=== PATIENT | female | born 1930 | race Caucasian/White ===

== ENCOUNTER 2019-01-27 04:15 | Inpatient (IN) | payer OTHER ==
[~2019-01-27] VITALS: Ht 149.9 cm; Wt 36.8 kg
[~2019-01-27 04:15] MED LIST: AMLO-218 PO; AUG875 PO; LEVO75TA84 PO; LOSA50TA2 PO; NYST30PO5 TOP
[2019-01-27] MEDS ORDERED: SOD CHLORIDE 0.45% 1,000 ML IV SCH (08:00)
[2019-01-27] MEDS ORDERED: BISACODYL (EC) 5 MG TAB PO PRN (08:00)
[2019-01-27] MEDS ORDERED: ACETAMINOPHEN 325 MG TAB PO PRN (08:00)
[2019-01-27 08:16] VITALS: BP 158/76; PULSE 98; RESP 20
[2019-01-27] MEDS: CEFTRIAXONE 1 GM/NS 50 ML IVPB SCH (08:30)
[2019-01-27] MEDS: AMLODIPINE 10 MG TAB PO SCH (08:59)
[2019-01-27] MEDS: PANTOPRAZOLE (EC) 40 MG TAB PO SCH (09:00)
[2019-01-27] MEDS: LOSARTAN 50 MG TAB PO SCH ×3 (09:00→20:32)
[2019-01-27] MEDS ORDERED: CEFTRIAXONE 1 GM INJ IVPB SCH (09:00)
[2019-01-27] MEDS: POTASSIUM CHLORIDE 100 ML IVPB SCH ×2 (10:53→16:47)
[2019-01-27 14:55] VITALS: BP 131/65; PULSE 101; RESP 20
[2019-01-27] MEDS: 1/2 NS + KCL 20 MEQ 1,000 ML IV SCH (18:24)
--- NOTE | 2019-01-27 18:51 | HP ---
Date/Time of Note Date/Time of Note DATE: 01/27/19 TIME: 18:49 Assessment/Plan VTE Prophylaxis Risk score (from [facility] [place])>0 risk: 4 SCD applied (from [facility] [place]): Yes SCD contraindicated: other Pharmacological prophylaxis: NA/contraindicated Pharm contraindication: anticoag not tolerated Lines/Catheters IV Catheter Type (from [facility]): Peripheral IV Urinary Cath still in place: No Assessment/Plan Hospital Course 1. SOB, troponini positive in [place] 0.08 and now [facility] 0.329 2. SIRS with UTI 3. metabolic encephalopathy vs dementia 4. Cachexia. 5. Anemia 6. DM type II 7. Hypothyroidism 8. Malnourishment 9. electrolyte imbalance 10. hx of fall at home 11. S.p right hip surgery Assessment/Plan -hypoglycemic control -DVT proph SCD -GI proph. Protonix -per daughter pt is DNR -dr Erwin consult -sitter for safety -telemetry transfer Result Diagram: 01/27/19 0849 01/27/19 0849 Results 24hrs Laboratory Tests Test 01/27/19 08:49 White Blood Count 11.5 #H Red Blood Count 3.19 L Hemoglobin 7.8 #L Hematocrit 25.1 L Mean Corpuscular Volume 78.7 L Mean Corpuscular Hemoglobin 24.5 L Mean Corpuscular Hemoglobin Concent 31.1 L Red Cell Distribution Width 15.2 H Platelet Count 523 H Mean Platelet Volume 9.1 Immature Granulocytes % 0.500 H Neutrophils % 86.2 H Lymphocytes % 6.9 L Monocytes % 6.1 Eosinophils % 0.1 Basophils % 0.2 Nucleated Red Blood Cells % 0.0 Immature Granulocytes # 0.060 H Neutrophils # 10.0 H Lymphocytes # 0.8 Monocytes # 0.7 Eosinophils # 0.0 Basophils # 0.0 Nucleated Red Blood Cells # 0.0 Sodium Level 137 Potassium Level 2.9 *L Chloride Level 103 Carbon Dioxide Level 25 Anion Gap 9 Blood Urea Nitrogen 14 Creatinine 0.54 Est Glomerular Filtrat Rate mL/min Glucose Level 157 Hemoglobin A1c 6.9 H Calcium Level 8.7 Total Bilirubin 0.2 Direct Bilirubin 0.00 Indirect Bilirubin 0.2 Aspartate Amino Transf (AST/SGOT) 22 Alanine Aminotransferase (ALT/SGPT) 18 Alkaline Phosphatase 89 Total Protein 6.8 Albumin 2.9 L Globulin 3.90 H Albumin/Globulin Ratio 0.74 HPI/ROS Admit Date/Time Admit Date/Time Jan 27, 2019 at 06:14 Hx of Present Illness This 88-year-old female presented herself to the emergency department of [facility] with the complaints of shortness of breath weakness history of falls. Patient is confused and unable to give detailed history the whole history obtained from nursing staff and the medical record. Patient reported shortness of breath for 1 day but weakness is a progressively worse for a few days. Past medical history diabetes mellitus type 2 fracture gastric ulcer dementia hypertension and status post a right hip arthroplasty or other surgery,. CBC revealed white blood count 12 hemoglobin 8 urinalysis revealed 21/50 WBC. 2+ leukocytes, BMP revealed glucose 215, sodium 126 potassium 3.2 chloride 92 CO2 23 BUN 21 creatinine 0.7. Troponin T is 0.08 lactate 1.0 procalcitonin 2.20. BNP 2.900 patient was given 1 L of normal saline and was given 1 g of Rocephin IV and she was transferred to [facility] due to insurance purposes Medications at home Tylenol with codeine 320 aspirin 81 Coreg 12.5 twice daily docusate sodium 100 mg p.o. ferrous sulfate 325 hydrocodone acetaminophen 5/525 ibuprofen isosorbide 60 mg ER levothyroxine 75 mg p.o. a Loratadine 10 mg metformin 500 mg p.o. twice daily ROS denied current symptoms PMH/Family/Social Past Medical History Medical History: congestive heart failure, diabetes, hypertension Medications Current Medications Pantoprazole (Protonix Tab) 40 mg DAILY@06 PO Last administered on 01/27/19at 09:00; Admin Dose 40 MG; Start 01/27/19 at 08:00 Acetaminophen (Tylenol Tab) 650 mg Q6H PRN PO MILD PAIN(1-3)OR ELEVATED TEMP; Start 01/27/19 at 08:00 Bisacodyl (Dulcolax) 10 mg Q12H PRN PO CONSTIPATION; Start 01/27/19 at 08:00 Ceftriaxone Sodium 50 ml @ 100 mls/hr Q24H IVPB Last administered on 01/27/19at 08:30; Admin Dose 100 MLS/HR; Start 01/27/19 at 08:00 Amlodipine Besylate (Norvasc) 10 mg DAILY PO Last administered on 01/27/19at 08:59; Admin Dose 10 MG; Start 01/27/19 at 09:00 Levothyroxine Sodium (Synthroid) 75 mcg DAILY@06 PO ; Start 01/28/19 at 10:00 Losartan Potassium (Cozaar) 50 mg BID PO Last administered on 01/27/19at 09:00; Admin Dose 50 MG; Start 01/27/19 at 09:00 Potassium Chloride/Sodium Chloride 1,000 ml @ 50 mls/hr Q20H IV Last administered on 01/27/19at 18:24; Admin Dose 50 MLS/HR; Start 01/27/19 at 15:30 Metoprolol Tartrate (Lopressor) 25 mg BID PO ; Start 01/27/19 at 21:00 Aspirin (Aspirin) 81 mg DAILY PO ; Start 01/28/19 at 09:00 Coded Allergies: No Known Allergy (Unverified , 07/07/15) Past Surgical History Past Surgical Hx: other (right hip surgery) Social History Alcohol Use: none Smoking Status: Never smoker Drug Use: none Exam/Review of Systems Vital Signs Vitals Vital Signs Date Temp Pulse Resp B/P (MAP) Pulse Ox O2 O2 Flow FiO2 Time Delivery Rate 01/27/19 97.9 101 20 131/65 98 14:55 (87) Exam Constitutional: alert, frail Psych: confusion Head: normocephalic Eyes: nl conjunctiva Neck: supple Respiratory: clear to auscultation Cardiovascular: regular rate and rhythm Gastrointestinal: soft Musculoskeletal: muscle weakness BAY HAN Jan 27, 2019 18:51
[2019-01-27 20:04] VITALS: BP 137/66; PULSE 99; RESP 18
[2019-01-27] MEDS: METOPROLOL 25 MG TAB PO SCH ×2 (20:28→20:32)
--- NOTE | 2019-01-27 22:52 | CONS ---
DATE OF ADMISSION: 01/27/2019 DATE OF CONSULTATION: 01/27/2019 TYPE OF CONSULTATION: Cardiology. REASON FOR CONSULTATION: Positive troponin, assess significance. REQUESTING PHYSICIAN: Linus Moses MD HISTORY OF PRESENT ILLNESS: Mr. Tran is an 88-year-old female with a history of hypertension, hypo thyroidism, diabetes mellitus, gastric ulcer, recurrent falls, hip fracture status post surgery, who initially presented to outside hospital, [facility], with shortness of breath, inability t o ambulate, progressive weakness, recurrent falls. At outside hospital, temperature 98.7, blood pres sure 160/86, pulse 89, respiratory rate 17, satting 100%. The patient's labs were notable for a bord jhoan positive UA. BNP of 2900. Sodium 126, potassium 3.2, creatinine 0.7, BUN 21, AST 15, ALT 9, troponin mildly positive at 0.08. The patient additionally had a procalcitonin greater than 2. The patient just underwent a chest x-ray, the results of which revealed no pneumonia or CHF. Given that, the patient has been transferred to [facility] at this time. Since arrival at [facility], the patient appears somewhat confused, alert, awake. Most recent vital si gns: Temperature 98.9, blood pressure is 131/65, pulse 100 respiratory rate 20, satting 98%. PAST MEDICAL HISTORY: As above in HPI. MEDICATIONS CURRENTLY IN HOSPITAL: 1. Synthroid 75 mcg daily. 2. Norvasc 10 mg daily. 3. Cozaar 50 mg b.i.d. 4. Protonix 40 mg daily. 5. Tylenol p.r.n. 6. Ceftriaxone IV daily. ALLERGIES: NO KNOWN DRUG ALLERGIES. SOCIAL HISTORY: No current tobacco, ETOH, or illicit drug use. FAMILY HISTORY: No sudden cardiac or early CAD. REVIEW OF SYSTEMS: As above in HPI. CONSTITUTIONAL: No current fevers. PULMONARY: No current signs of respiratory compromise, but shortness of breath on admit [facility] the [facility]. GASTROINTESTINAL: No vomiting. GENITOURINARY: No hematuria. MUSCULOSKELETAL: Degenerative joint disease. PSYCHIATRIC: Possible psych history. NEUROLOGIC: Altered mental state. CARDIOVASCULAR: Positive from outside hospital. PHYSICAL EXAMINATION: VITAL SIGNS: Temperature 97.9, blood pressure 131/65, pulse 100, respiratory rate 20, satting 98%. GENERAL: The patient is alert, awake, no acute distress. NECK: JVP approximately 8 to 9 cm of water. CHEST: Upper airway transmitted rhonchus sounds. HEART: Tachycardic, borderline regular rhythm. Normal S1, S2, I/ systolic murmur, nondisplaced PM I. ABDOMEN: Positive bowel sounds, soft. EXTREMITIES: No significant pitting edema, 1+ pulses bilateral posterior tibial. LABORATORY DATA: From here at [facility]: White blood cell count 11.5, hemoglobin 7.8, platelet count of 523. Sodium 137, potassium 2.9, creatinine 0.5, BUN 14, AST 22, ALT 18. IMAGING STUDIES: No imaging studies for my review at this time. ELECTROCARDIOGRAM: No electrocardiograms here. Electrocardiogram from outside hospital revealed sin us rhythm, first-degree AV block, normal axis, borderline voltage criteria for left ventricular hyper trophy, left atrial abnormality. IMPRESSION: 1. Positive troponin in outside hospital. Assess significance, assess for ongoing true acute caro ry syndrome. 2. Abnormal echocardiogram with lateral T-wave inversion. 3. Hypertension, under reasonable control. 4. Tachycardia, borderline. Electrocardiogram was likely consistent with sinus tachycardia. 5. Altered mental state/nephropathy. 6. Hypokalemia. 7. Recurrent falls. 8. Generalized weakness. 9. Shortness of breath prior to admit at the hospital. 10. Hypothyroidism. RECOMMENDATIONS: 1. At this time, we would check serial EKGs to assess for significant ongoing change, EKG in the mor debra, EKG for any complaints of chest pain or change in rhythm. 2. Would trend the patient's cardiac troponins here at [facility] to assess for an y significant ongoing cardiac damage. Initiate patient on aspirin at this time, but we will watch fo r any signs of bleeding given anemia and microcytic indices, and therefore will not start any further anticoagulation. 3. Consider low-dose beta darrell to improve heart rate and blood pressure control, decrease O2 aron nd. 4. Check a 2D echo to further assess patient's ejection fraction, wall motion and major valve abnorm alities. 5. Continue the patient's antibiotics and follow up all culture data including urine culture. 6. Continue the patient's Cozaar and Norvasc at this time for additional blood pressure control. 7. Check a TSH to be sure her subclinical hyperthyroid is not contributing to bouts of borderline ta chycardia and we will check a 2D echo to assess the patient's ejection fraction, wall motion, rule ou t any major valve abnormalities. Thank you for allowing me to take part in the care of this patient. I will continue to follow along very closely with you, with recommendations to be made as the patient progresses through her central hospital clinical course. Dictated By: TELLY GERONIMO/AUSTIN Conf#: [id number] DID#: [id number] CC: LINUS MOSES MD;*EndCC*
[2019-01-28] VITALS (7 sets, daily range): BP systolic 120–167; BP diastolic 58–80; PULSE 74–102; RESP 17–19
[2019-01-28] MEDS: PANTOPRAZOLE (EC) 40 MG TAB PO SCH (05:36)
[2019-01-28] MEDS: LOSARTAN 50 MG TAB PO SCH ×2 (08:41→20:11)
[2019-01-28] MEDS: METOPROLOL 25 MG TAB PO SCH (08:41)
[2019-01-28] MEDS: ASPIRIN 81 MG TAB PO SCH (08:42)
[2019-01-28] MEDS: CEFTRIAXONE 1 GM/NS 50 ML IVPB SCH (08:42)
[2019-01-28] MEDS: AMLODIPINE 10 MG TAB PO SCH (08:42)
[2019-01-28] MEDS: 1/2 NS + KCL 20 MEQ 1,000 ML IV SCH (11:30)
--- NOTE | 2019-01-28 12:15 | PN ---
Date/Time of Note Date/Time of Note DATE: 01/28/19 TIME: 12:13 Assessment/Plan VTE Prophylaxis [place] [facility] [place]: 5 [place]CD [place] [facility] [place] SCD contraindicated: other Pharmacological prophylaxis: NA/contraindicated Pharm contraindication: anticoag not tolerated Lines/Catheters IV Catheter Type (from [facility]): Peripheral IV Urinary Cath still in place: No Assessment/Plan Hospital Course 1. SOB, troponin positive in [place] 0.08 and now [facility] 0.329 2. Urosepsis 3. metabolic encephalopathy vs dementia 4. Cachexia. 5. Iron deficiency Anemia 6. DM type II, controlled 7. Hypothyroidism 8. Malnourishment 9. electrolyte imbalance 10. hx of fall at home 11. S.p right hip surgery Assessment/Plan -hypoglycemic control -DVT proph SCD. Aspirin -start ferrlicit ID consult dr Darby -GI proph. Protonix -per daughter pt is DNR -dr Erwin cardiology consult appreciated -blood cultures are positive from [facility] -sitter for safety -telemetry service Result Diagram: 01/28/19 0534 01/28/19 0534 Results 24hrs Laboratory Tests Test 01/27/19 18:09 01/28/19 00:42 01/28/19 05:34 Troponin I 0.329 *H 0.320 *H 0.343 *H White Blood Count 11.5 H Red Blood Count 3.23 L Hemoglobin 7.9 L Hematocrit 25.5 L Mean Corpuscular Volume 78.9 L Mean Corpuscular Hemoglobin 24.5 L Mean Corpuscular Hemoglobin Concent 31.0 L Red Cell Distribution Width 15.3 H Platelet Count 534 H Mean Platelet Volume 9.2 Immature Granulocytes % 0.400 Neutrophils % 81.1 H Lymphocytes % 11.0 L Monocytes % 7.1 Eosinophils % 0.2 Basophils % 0.2 Nucleated Red Blood Cells % 0.0 Immature Granulocytes # 0.050 H Neutrophils # 9.3 H Lymphocytes # 1.3 Monocytes # 0.8 Eosinophils # 0.0 Basophils # 0.0 Nucleated Red Blood Cells # 0.0 Sodium Level 138 Potassium Level 4.0 Chloride Level 103 Carbon Dioxide Level 25 Anion Gap 10 Blood Urea Nitrogen 11 Creatinine 0.54 Est Glomerular Filtrat Rate mL/min Glucose Level 132 Lactic Acid Level 1.1 Calcium Level 9.0 Iron Level 22 L Total Iron Binding Capacity 244 Percent Iron Saturation 9 L Triglycerides Level 105 Cholesterol Level 135 LDL Cholesterol, Calculated 88 HDL Cholesterol 26 L Cholesterol/HDL Ratio 5.1 Thyroid Stimulating Hormone (TSH) 1.070 Subjective 24 Hr Interval Summary Constitutional: disoriented Exam/Review of Systems Exam Vitals Vital Signs Date Temp Pulse Resp B/P (MAP) Pulse Ox O2 O2 Flow FiO2 Time Delivery Rate 01/28/19 98.6 74 17 139/70 96 Room Air 09:05 (93) Intake and Output 01/27/19 01/27/19 01/28/19 1515:00 23:00 07:00 IntakeIntake Total 410 ml 1180 ml 100 ml BalanceBalance 410 ml 1180 ml 100 ml Exam communication barrier Constitutional: alert Head: normocephalic Eyes: nl conjunctiva Neck: supple Respiratory: clear to auscultation Cardiovascular: regular rate and rhythm, other (SVT run) Genitourinary - Female: CVA tenderness; No nl adnexae, No nl external genitalia, No CMT, No uterus, No other Extremities: edema; No normal pulses, No calf tenderness, No cyanosis, No clubbing, No pitting pedal edema, No palpable cord, No tenderness, No other Neurological: confused Results Results 24hrs Laboratory Tests Test 01/27/19 18:09 01/28/19 00:42 01/28/19 05:34 Troponin I 0.329 *H 0.320 *H 0.343 *H White Blood Count 11.5 H Red Blood Count 3.23 L Hemoglobin 7.9 L Hematocrit 25.5 L Mean Corpuscular Volume 78.9 L Mean Corpuscular Hemoglobin 24.5 L Mean Corpuscular Hemoglobin Concent 31.0 L Red Cell Distribution Width 15.3 H Platelet Count 534 H Mean Platelet Volume 9.2 Immature Granulocytes % 0.400 Neutrophils % 81.1 H Lymphocytes % 11.0 L Monocytes % 7.1 Eosinophils % 0.2 Basophils % 0.2 Nucleated Red Blood Cells % 0.0 Immature Granulocytes # 0.050 H Neutrophils # 9.3 H Lymphocytes # 1.3 Monocytes # 0.8 Eosinophils # 0.0 Basophils # 0.0 Nucleated Red Blood Cells # 0.0 Sodium Level 138 Potassium Level 4.0 Chloride Level 103 Carbon Dioxide Level 25 Anion Gap 10 Blood Urea Nitrogen 11 Creatinine 0.54 Est Glomerular Filtrat Rate mL/min Glucose Level 132 Lactic Acid Level 1.1 Calcium Level 9.0 Iron Level 22 L Total Iron Binding Capacity 244 Percent Iron Saturation 9 L Triglycerides Level 105 Cholesterol Level 135 LDL Cholesterol, Calculated 88 HDL Cholesterol 26 L Cholesterol/HDL Ratio 5.1 Thyroid Stimulating Hormone (TSH) 1.070 Medications Medication Current Medications Pantoprazole (Protonix Tab) 40 mg DAILY@06 PO Last administered on 01/28/19 05:36; Admin Dose 40 MG; Start 01/27/19 at 08:00 Acetaminophen (Tylenol Tab) 650 mg Q6H PRN PO MILD PAIN(1-3)OR ELEVATED TEMP; Start 01/27/19 at 08:00 Bisacodyl (Dulcolax) 10 mg Q12H PRN PO CONSTIPATION; Start 01/27/19 at 08:00 Ceftriaxone Sodium 50 ml @ 100 mls/hr Q24H IVPB Last administered on 01/28/19 08:42; Admin Dose 100 MLS/HR; Start 01/27/19 at 08:00 Amlodipine Besylate (Norvasc) 10 mg DAILY PO Last administered on 01/28/19 08:42; Admin Dose 10 MG; Start 01/27/19 at 09:00 Levothyroxine Sodium (Synthroid) 75 mcg DAILY@06 PO ; Start 01/28/19 at 10:00 Losartan Potassium (Cozaar) 50 mg BID PO Last administered on 01/28/19 08:41; Admin Dose 50 MG; Start 01/27/19 at 09:00 Potassium Chloride/Sodium Chloride 1,000 ml @ 50 mls/hr Q20H IV Last administered on 01/27/19at 18:24; Admin Dose 50 MLS/HR; Start 01/27/19 at 15:30 Metoprolol Tartrate (Lopressor) 25 mg BID PO Last administered on 01/28/19 08:41; Admin Dose 25 MG; Start 01/27/19 at 21:00 Aspirin (Aspirin) 81 mg DAILY PO Last administered on 01/28/19 08:42; Admin Dose 81 MG; Start 01/28/19 at 09:00 BAY HAN Jan 28, 2019 12:15
[2019-01-28] MEDS: LEVOTHYROXINE 75 MCG TAB PO SCH (12:16)
[2019-01-28] MEDS ORDERED: GLUCOSE GEL 15 GRAM TUBE BUCCAL PRN (12:30)
[2019-01-28] MEDS ORDERED: DEXTROSE 50% 50 ML SYRINGE IV PRN ×2 (12:30)
[2019-01-28] MEDS ORDERED: GLUCAGON 1 MG INJ IM PRN (12:30)
[2019-01-28] MEDS ORDERED: GLUCOSE GEL 15 GRAM TUBE PO PRN ×2 (12:30)
--- NOTE | 2019-01-28 13:24 | CONS ---
Assessment/Plan Assessment/Plan Hospital Course (Demo Recall) IMP: 1. Positive troponin in outside hospital. Assess significance, assess for ongoing true acute coronary syndrome.-minimally positive troponin here 2. Abnormal echocardiogram with lateral T-wave inversion.- No change on serial ecg assessment 3. Hypertension, under reasonable control. 4. Tachycardia, borderline-c/w s Tach. Nl TSH 5. Altered mental state/nephropathy. 6. Hypokalemia-improved 7. Recurrent falls. 8. Generalized weakness. 9. Shortness of breath prior to admit at the hospital-ongoing 10. Hypothyroidism. 11. anemia-ongoing but unchanged Recc: -No on tele -trend cardiac enzymes -Contine asa/BB -Will f/u echo -Contineu abx's and f/u cx data -check cxr Consultation Date/Type/Reason Admit Date/Time Jan 27, 2019 at 06:14 Initial Consult Date 01/27/19 Type of Consult Cardiology Reason for Consultation positive troponin Requesting Provider: RAND SANDOVAL MD Date/Time of Note DATE: 01/28/19 TIME: 13:14 Exam/Review of Systems Vital Signs Vitals Vital Signs Date Temp Pulse Resp B/P (MAP) Pulse Ox O2 O2 Flow FiO2 Time Delivery Rate 01/28/19 98.7 17 120/58 98 Room Air 13:04 (78) 01/28/19 74 09:05 Intake and Output 01/27/19 01/27/19 01/28/19 1414:59 22:59 06:59 IntakeIntake Total 410 ml 1180 ml 100 ml BalanceBalance 410 ml 1180 ml 100 ml Exam Exam Review of Systems: CONSTITUTIONAL: No fevers, chills. PULMONARY: No sob CARDIOVASCULAR: No chest pain/palpitations GASTROINTESTINAL: No nausea/vomiting. GENITOURINARY: No hematuria/dysuria. MUSCULOSKELETAL: No myagias/arthalgias. PSYCHIATRIC: The patient denies depression. NEUROLOGIC: confused Constitutional: alert Psych: confusion Head: normocephalic ENMT: mucosa pink and moist Neck: supple, jvd (9 cm water) Respiratory: diminished breath sounds (at bases/B) Cardiovascular: regular rate and rhythm Gastrointestinal: soft, non-tender Musculoskeletal: muscle weakness (generalized) Extremities: edema (none) Neurological: confused Labs Result Diagram: 01/28/1934 01/28/19533 Results 24hrs Laboratory Tests Test 01/27/19 18:09 01/28/19 00:42 01/28/19 05:34 Troponin I 0.329 *H 0.320 *H 0.343 *H White Blood Count 11.5 H Red Blood Count 3.23 L Hemoglobin 7.9 L Hematocrit 25.5 L Mean Corpuscular Volume 78.9 L Mean Corpuscular Hemoglobin 24.5 L Mean Corpuscular Hemoglobin Concent 31.0 L Red Cell Distribution Width 15.3 H Platelet Count 534 H Mean Platelet Volume 9.2 Immature Granulocytes % 0.400 Neutrophils % 81.1 H Lymphocytes % 11.0 L Monocytes % 7.1 Eosinophils % 0.2 Basophils % 0.2 Nucleated Red Blood Cells % 0.0 Immature Granulocytes # 0.050 H Neutrophils # 9.3 H Lymphocytes # 1.3 Monocytes # 0.8 Eosinophils # 0.0 Basophils # 0.0 Nucleated Red Blood Cells # 0.0 Sodium Level 138 Potassium Level 4.0 Chloride Level 103 Carbon Dioxide Level 25 Anion Gap 10 Blood Urea Nitrogen 11 Creatinine 0.54 Est Glomerular Filtrat Rate mL/min Glucose Level 132 Lactic Acid Level 1.1 Calcium Level 9.0 Iron Level 22 L Total Iron Binding Capacity 244 Percent Iron Saturation 9 L Triglycerides Level 105 Cholesterol Level 135 LDL Cholesterol, Calculated 88 HDL Cholesterol 26 L Cholesterol/HDL Ratio 5.1 Thyroid Stimulating Hormone (TSH) 1.070 Medications Medications Current Medications Pantoprazole (Protonix Tab) 40 mg DAILY@06 PO Last administered on 01/28/19at 05:36; Admin Dose 40 MG; Start 01/27/19 at 08:00 Acetaminophen (Tylenol Tab) 650 mg Q6H PRN PO MILD PAIN(1-3)OR ELEVATED TEMP; Start 01/27/19 at 08:00 Bisacodyl (Dulcolax) 10 mg Q12H PRN PO CONSTIPATION; Start 01/27/19 at 08:00 Ceftriaxone Sodium 50 ml @ 100 mls/hr Q24H IVPB Last administered on 01/28/19at 08:42; Admin Dose 100 MLS/HR; Start 01/27/19 at 08:00 Amlodipine Besylate (Norvasc) 10 mg DAILY PO Last administered on 01/28/19at 08:42; Admin Dose 10 MG; Start 01/27/19 at 09:00 Levothyroxine Sodium (Synthroid) 75 mcg DAILY@06 PO Last administered on 01/28/19at 12:16; Admin Dose 75 MCG; Start 01/28/19 at 10:00 Losartan Potassium (Cozaar) 50 mg BID PO Last administered on 01/28/19at 08:41; Admin Dose 50 MG; Start 01/27/19 at 09:00 Potassium Chloride/Sodium Chloride 1,000 ml @ 50 mls/hr Q20H IV Last administered on 01/27/19at 18:24; Admin Dose 50 MLS/HR; Start 01/27/19 at 15:30 Metoprolol Tartrate (Lopressor) 25 mg BID PO Last administered on 01/28/19at 08:41; Admin Dose 25 MG; Start 01/27/19 at 21:00 Aspirin (Aspirin) 81 mg DAILY PO Last administered on 01/28/19at 08:42; Admin Dose 81 MG; Start 01/28/19 at 09:00 Insulin Aspart (Novolog Insulin Pen) NOVOLOG *MILD* ALGORITHM WITH MEALS BEDTIME SC ; Start 01/28/19 at 18:00 Miscellaneous Information 1 ea NOTE XX ; Start 01/28/19 at 12:30 Glucose (Glutose) 15 gm Q15M PRN PO DECREASED GLUCOSE; Start 01/28/19 at 12:30 Glucose (Glutose) 22.5 gm Q15M PRN PO DECREASED GLUCOSE; Start 01/28/19 at 12:30 Dextrose (D50w Syringe) 25 ml Q15M PRN IV DECREASED GLUCOSE; Start 01/28/19 at 12:30 Dextrose (D50w Syringe) 50 ml Q15M PRN IV DECREASED GLUCOSE; Start 01/28/19 at 12:30 Glucagon (Glucagen) 1 mg Q15M PRN IM DECREASED GLUCOSE; Start 01/28/19 at 12:30 Glucose (Glutose) 15 gm Q15M PRN BUCCAL DECREASED GLUCOSE; Start 01/28/19 at 12:30 Ferric Sodium Gluconate Complex 125 mg/Sodium Chloride 110 ml @ 110 mls/hr DAILY@1300 IVPB ; Start 01/28/19 at 15:00; Stop 02/01/19 at 13:59 TELLY ROSSI 14, 2019 13:24
[2019-01-28] MEDS ORDERED: DIGOXIN 500 MCG INJ IV ONE (15:30)
[2019-01-28] MEDS ORDERED: METOPROLOL 5 MG INJ IV PRN (15:30)
--- NOTE | 2019-01-28 15:58 | RADRPT ---
Vent Rate: 95 bpm RR Interval: 632 msec MI Interval: 204 msec QRS Duration: 78 msec QT Interval: 348 msec QTC Interval: 438 msec P-R-T [place]: 54 - 25 - 98 degrees Sinus rhythm...normal P axis, V-rate 50- 99 Consider left ventricular hypertrophy...(S V1/V2+R V5/V6) >3.25mV Nonspecific T abnormalities, lateral leads...T <-0.10mV, I aVL V5 V6 Electronically Signed By: Sang Erwin
[2019-01-28] MEDS: SOD FERRIC GLUC COMPLX 125 MG in SOD CHLORIDE 0.9% 100 ML IVPB SCH (16:43)
[2019-01-28] MEDS: INSULIN ASPART [NOVOLOG] 3 ML PEN SC SCH ×2 (17:01→21:53)
--- NOTE | 2019-01-28 18:44 | CONS ---
DATE OF ADMISSION: 01/27/2019 DATE OF CONSULTATION: 01/28/2019 REASON FOR CONSULTATION: Antibiotic management. HISTORY OF PRESENT ILLNESS: Yosi Tran is an 88-year-old female who comes in with numerous pro blems and is being seen for antibiotic management. She presented to [facility] with shortness of breath and weakness. She has a history of falls. She is confused and unable to give a detailed history of her problems. [facility] a [facility]. She reported shortness of breath for one day with weakness that has been progressive for the last few days. She has a history of diabetes mellitus. She has a history of fractures, gastric ulcers, dementia, hypertension and sta tus post right hip arthroplasty. Her white count was 12,000, hemoglobin 8. Urinalysis showed 2+ corona kocyte esterase. I think numerous white cells. Her glucose was 215. BUN and creatinine 21/0.7. Pr ocalcitonin was elevated at 2.2. She was given IV Rocephin and transferred to [facility]. PAST MEDICAL HISTORY: Positive for congestive heart failure, diabetes, hypertension, right hip surge ry as noted. FAMILY HISTORY: Noncontributory. SOCIAL HISTORY: She does not smoke, drink or abuse drugs. ALLERGIES: NONE TO PENICILLIN, SULFA OR FOODS. MEDICATIONS: Per chart. REVIEW OF SYSTEMS: Noncontributory. PHYSICAL EXAMINATION: GENERAL: The patient is alert, frail, in no acute distress. She is somewhat confused. VITAL SIGNS: Stable. She is afebrile, pulse was 101. SKIN: Without generalized rash. HEENT: Within normal limits. NECK: Supple. LYMPH NODES: None palpable. CHEST: Decreased breath sounds at the bases. HEART: Without murmur or gallop. ABDOMEN: Soft, nontender, without organosplenomegaly or masses. EXTREMITIES: Without cyanosis, clubbing, or edema. RECTAL AND GENITAL: Deferred. NEUROLOGICAL: No focal neurological abnormalities. IMPRESSION AND PLAN: The patient was seen by Dr. Erwin for cardiology. Patient had positive tropo nins. She may have ongoing true acute coronary syndrome. She has hypertension, under reasonable con trol. We have information from the other hospital, but we do not have anything with regards to her c ultures here. Pulmonary will also see the patient. I am going to change her ceftriaxone to cefepime since she is a prison patient and repeat PD, UA and C and S. I will dictate my findings to Dr. Osorio and the nurse practitioner, Taty Lopez. Dictated By: ANDRÉS SPEAR MD, JD/AUSTIN Conf#: [id number] DID#: [id number] CC: SATHYA MOSES MD;*End*
[2019-01-28] MEDS: METOPROLOL 50 MG TAB PO SCH (20:11)
[2019-01-28] MEDS: CEFEPIME 1GM/50 ML (PMX) 50 ML IVPB SCH (20:12)
[2019-01-29 04:08] VITALS: BP 137/67; PULSE 81
[2019-01-29] MEDS: LEVOTHYROXINE 75 MCG TAB PO SCH (06:00)
[2019-01-29] MEDS: PANTOPRAZOLE (EC) 40 MG TAB PO SCH (06:00)
[2019-01-29 07:37] VITALS: BP 137/66; PULSE 85; RESP 20
[2019-01-29] MEDS: INSULIN ASPART [NOVOLOG] 3 ML PEN SC SCH ×4 (07:48→20:31)
[2019-01-29] MEDS: ASPIRIN 81 MG TAB PO SCH (08:29)
[2019-01-29] MEDS: AMLODIPINE 10 MG TAB PO SCH (08:30)
[2019-01-29] MEDS: LOSARTAN 50 MG TAB PO SCH ×2 (08:30→20:17)
[2019-01-29] MEDS: METOPROLOL 50 MG TAB PO SCH ×2 (08:30→20:17)
[2019-01-29] MEDS: 1/2 NS + KCL 20 MEQ 1,000 ML IV SCH (08:31)
[2019-01-29] MEDS: CEFEPIME 1GM/50 ML (PMX) 50 ML IVPB SCH ×2 (08:31→20:17)
--- NOTE | 2019-01-29 10:50 | CONS ---
Assessment/Plan Assessment/Plan Hospital Course (Demo Recall) IMP: 1. Positive troponin in outside hospital. Assess significance, assess for ongoing true acute coronary syndrome.-minimally positive troponin here with downtrend at this time 2. Abnormal echocardiogram with lateral T-wave inversion.- No change on serial ecg assessment 3. Hypertension, under reasonable control. 4. Tachycardia, borderline-c/w s Tach. Nl TSH. Episode of SVT to 150 ? PAFL/AT. Short run self limited 5. Altered mental state/nephropathy. 6. Hypokalemia-improved 7. Recurrent falls. 8. Generalized weakness. 9. Shortness of breath prior to admit at the hospital-ongoing 10. Hypothyroidism. 11. anemia-ongoing but unchanged 12.DNR Recc: -Tele -Continue to trend cardiac enzymes -Contine asa and should be considered for systemic anticoagulation but given ongoing microcytic anemia will continue asa monotherapy at this time as tolerated -continue BB s/p increase and follow for recurrent SVT and if so will consider amiodarone -continue losartan and follow reasonable BP -Contineu abx's and f/u cx data -will f/u echo when available Consultation Date/Type/Reason Admit Date/Time Jan 27, 2019 at 06:14 Initial Consult Date 01/27/19 Type of Consult Cardiology Reason for Consultation positive troponin/SVT Requesting Provider: SATHYA MOSES MD Date/Time of Note DATE: 01/29/19 TIME: 10:45 Exam/Review of Systems Vital Signs Vitals Vital Signs Date Temp Pulse Resp B/P (MAP) Pulse Ox O2 O2 Flow FiO2 Time Delivery Rate 01/29/19 98.3 85 20 137/66 97 07:37 (89) 01/29/19 Room Air 04:08 Intake and Output 01/28/19 01/28/19 01/29/19 1515:00 23:00 07:00 IntakeIntake Total 100 ml 210 ml BalanceBalance 100 ml 210 ml Exam Exam Review of Systems: CONSTITUTIONAL: No fevers, chills. PULMONARY: No sob CARDIOVASCULAR: No chest pain/palpitations GASTROINTESTINAL: No nausea/vomiting. GENITOURINARY: No hematuria/dysuria. MUSCULOSKELETAL: No myagias/arthalgias. PSYCHIATRIC: The patient denies depression. NEUROLOGIC: confused Constitutional: alert Psych: confusion Head: normocephalic ENMT: mucosa pink and moist Neck: supple, jvd (8 cm water) Respiratory: diminished breath sounds (at bases/B) Cardiovascular: regular rate and rhythm Gastrointestinal: soft, non-tender Musculoskeletal: muscle weakness (generalized mild) Extremities: edema (none) Neurological: confused Labs Result Diagram: 01/29/19 0514 01/29/19 0514 Results 24hrs Laboratory Tests Test 01/28/19 16:50 01/28/19 20:09 01/29/19 02:07 01/29/19 05:14 Bedside Glucose 112 206 136 White Blood Count 10.5 Red Blood Count 3.31 L Hemoglobin 8.1 L Hematocrit 26.0 L Mean Corpuscular 78.5 L Volume Mean Corpuscular 24.5 L Hemoglobin Mean Corpuscular 31.2 L Hemoglobin Concent Red Cell 15.5 H Distribution Width Platelet Count 575 H Mean Platelet Volume 9.4 Immature 0.800 H Granulocytes % Neutrophils % 78.0 H Lymphocytes % 12.4 L Monocytes % 7.9 Eosinophils % 0.6 Basophils % 0.3 Nucleated Red Blood 0.0 Cells % Immature 0.080 H Granulocytes # Neutrophils # 8.2 H Lymphocytes # 1.3 Monocytes # 0.8 Eosinophils # 0.1 Basophils # 0.0 Nucleated Red Blood 0.0 Cells # Sodium Level 135 Potassium Level 3.8 Chloride Level 104 Carbon Dioxide Level 22 Anion Gap 9 Blood Urea Nitrogen 13 Creatinine 0.68 Est Glomerular Filtrat Rate mL/min Glucose Level 128 Calcium Level 9.1 Troponin I 0.236 *H Test 01/29/19 07:47 Bedside Glucose 122 Medications Medications Current Medications Pantoprazole (Protonix Tab) 40 mg DAILY@06 PO Last administered on 01/29/19at 06:00; Admin Dose 40 MG; Start 01/27/19 at 08:00 Acetaminophen (Tylenol Tab) 650 mg Q6H PRN PO MILD PAIN(1-3)OR ELEVATED TEMP; Start 01/27/19 at 08:00 Bisacodyl (Dulcolax) 10 mg Q12H PRN PO CONSTIPATION; Start 01/27/19 at 08:00 Amlodipine Besylate (Norvasc) 10 mg DAILY PO Last administered on 01/29/19at 08:30; Admin Dose 10 MG; Start 01/27/19 at 09:00 Levothyroxine Sodium (Synthroid) 75 mcg DAILY@06 PO Last administered on 01/29/19at 06:00; Admin Dose 75 MCG; Start 01/28/19 at 10:00 Losartan Potassium (Cozaar) 50 mg BID PO Last administered on 01/29/19at 08:30; Admin Dose 50 MG; Start 01/27/19 at 09:00 Potassium Chloride/Sodium Chloride 1,000 ml @ 50 mls/hr Q20H IV Last administered on 01/29/19at 08:31; Admin Dose 50 MLS/HR; Start 01/27/19 at 15:30 Aspirin (Aspirin) 81 mg DAILY PO Last administered on 01/29/19 08:29; Admin Dose 81 MG; Start 01/28/19 at 09:00 Insulin Aspart (Novolog Insulin Pen) NOVOLOG *MILD* ALGORITHM WITH MEALS BEDTIME SC Last administered on 01/28/19at 21:53; Admin Dose 1 UNIT; Start 01/28/19 at 18:00 Miscellaneous Information 1 ea NOTE XX ; Start 01/28/19 at 12:30 Glucose (Glutose) 15 gm Q15M PRN PO DECREASED GLUCOSE; Start 01/28/19 at 12:30 Glucose (Glutose) 22.5 gm Q15M PRN PO DECREASED GLUCOSE; Start 01/28/19 at 12:30 Dextrose (D50w Syringe) 25 ml Q15M PRN IV DECREASED GLUCOSE; Start 01/28/19 at 12:30 Dextrose (D50w Syringe) 50 ml Q15M PRN IV DECREASED GLUCOSE; Start 01/28/19 at 12:30 Glucagon (Glucagen) 1 mg Q15M PRN IM DECREASED GLUCOSE; Start 01/28/19 at 12:30 Glucose (Glutose) 15 gm Q15M PRN BUCCAL DECREASED GLUCOSE; Start 01/28/19 at 12:30 Ferric Sodium Gluconate Complex 125 mg/Sodium Chloride 110 ml @ 110 mls/hr DAILY@1300 IVPB Last administered on 01/28/19at 16:43; Admin Dose 110 MLS/HR; Start 01/28/19 at 15:00; Stop 02/01/19 at 13:59 Cefepime HCl 50 ml @ 100 mls/hr Q12 IVPB Last administered on 01/29/19at 08:31; Admin Dose 100 MLS/HR; Start 01/28/19 at 21:00 Metoprolol Tartrate (Lopressor) 50 mg BID PO Last administered on 01/29/19at 08:30; Admin Dose 50 MG; Start 01/28/19 at 21:00 Metoprolol Tartrate (Lopressor) 5 mg Q4H PRN IV HR>110 Hold SBP<100; Start 01/28/19 at 15:30 TELLY ROSSI Jan 29, 2019 10:50
[2019-01-29 11:04] VITALS: BP 127/60; PULSE 65; RESP 20
--- NOTE | 2019-01-29 12:48 | PN ---
Date/Time of Note Date/Time of Note DATE: 01/29/19 TIME: 12:40 Assessment/Plan VTE [place]axis [place] [facility]: 6 [place] [facility] SCD contraindicated: low risk/ambulating Pharmacological prophylaxis: NA/contraindicated Pharm contraindication: low risk/ambulating Lines/Catheters IV C[facility]ter Type (from [facility]ine Lock Urinary Cath still in place: No Assessment/Plan Assessment/Plan 88 y/o with 1 Positive troponin in outside hospital. Assess significance, assess for ongoing true acute coronary syndrome.-minimally positive troponin here with downtrend at this time Abnormal echocardiogram with lateral T-wave inversion.- No ch 2. Sepsis due to UTI 3. metabolic encephalopathy vs dementia 4. Cachexia. 5. Iron deficiency Anemia 6. DM type II, controlled 7. Hypothyroidism 8. Malnourishment 9. electrolyte imbalance 10. hx of fall at home 11. S.p right hip surgery Assessment/Plan -cw cefepime - fu ECHO - trend troponin - cw losaratn/amlodipine and MTP -CW ferrlicit ID consult dr Darby -GI proph. Protonix -per daughter pt is DNR -dr Erwin cardiology consult appreciated -[facility] -sitter for safety Result Diagram: 01/29/1951301/29/1914 Results 24hrs Laboratory Tests Test 01/28/19 16:50 01/28/19 20:09 01/29/19 02:07 01/29/19 05:14 Bedside Glucose 112 206 136 White Blood Count 10.5 Red Blood Count 3.31 L Hemoglobin 8.1 L Hematocrit 26.0 L Mean Corpuscular 78.5 L Volume Mean Corpuscular 24.5 L Hemoglobin Mean Corpuscular 31.2 L Hemoglobin Concent Red Cell 15.5 H Distribution Width Platelet Count 575 H Mean Platelet Volume 9.4 Immature 0.800 H Granulocytes % Neutrophils % 78.0 H Lymphocytes % 12.4 L Monocytes % 7.9 Eosinophils % 0.6 Basophils % 0.3 Nucleated Red Blood 0.0 Cells % Immature 0.080 H Granulocytes # Neutrophils # 8.2 H Lymphocytes # 1.3 Monocytes # 0.8 Eosinophils # 0.1 Basophils # 0.0 Nucleated Red Blood 0.0 Cells # Sodium Level 135 Potassium Level 3.8 Chloride Level 104 Carbon Dioxide Level 22 Anion Gap 9 Blood Urea Nitrogen 13 Creatinine 0.68 Est Glomerular Filtrat Rate mL/min Glucose Level 128 Calcium Level 9.1 Troponin I 0.236 *H Test 01/29/19 07:47 01/29/19 11:57 Bedside Glucose 122 159 Subjective 24 Hr Interval Summary Free Text/Dictation feels weak Exam/Review of Systems Exam Vitals Vital Signs Date Temp Pulse Resp B/P (MAP) Pulse Ox O2 O2 Flow FiO2 Time Delivery Rate 01/29/19 97.6 65 20 127/60 98 11:04 (82) 01/29/19 Room Air 04:08 Intake and Output 01/28/19 01/28/19 01/29/19 1515:00 23:00 07:00 IntakeIntake Total 100 ml 210 ml BalanceBalance 100 ml 210 ml Exam xam orientted x 2 Constitutional: alert Head: normocephalic Eyes: nl conjunctiva Neck: supple Respiratory: clear to auscultation Cardiovascular: regular rate and rhythm, other (SVT run) Genitourinary - Female: CVA tenderness; No nl adnexae, No nl external genitalia, No CMT, No uterus, No other Extremities: edema; No normal pulses, No calf tenderness, No cyanosis, No clubbing, No pitting pedal edema, No palpable cord, No tenderness, No other Neurological: confused Results Results 24hrs Laboratory Tests Test 01/28/19 16:50 01/28/19 20:09 01/29/19 02:07 01/29/19 05:14 Bedside Glucose 112 206 136 White Blood Count 10.5 Red Blood Count 3.31 L Hemoglobin 8.1 L Hematocrit 26.0 L Mean Corpuscular 78.5 L Volume Mean Corpuscular 24.5 L Hemoglobin Mean Corpuscular 31.2 L Hemoglobin Concent Red Cell 15.5 H Distribution Width Platelet Count 575 H Mean Platelet Volume 9.4 Immature 0.800 H Granulocytes % Neutrophils % 78.0 H Lymphocytes % 12.4 L Monocytes % 7.9 Eosinophils % 0.6 Basophils % 0.3 Nucleated Red Blood 0.0 Cells % Immature 0.080 H Granulocytes # Neutrophils # 8.2 H Lymphocytes # 1.3 Monocytes # 0.8 Eosinophils # 0.1 Basophils # 0.0 Nucleated Red Blood 0.0 Cells # Sodium Level 135 Potassium Level 3.8 Chloride Level 104 Carbon Dioxide Level 22 Anion Gap 9 Blood Urea Nitrogen 13 Creatinine 0.68 Est Glomerular Filtrat Rate mL/min Glucose Level 128 Calcium Level 9.1 Troponin I 0.236 *H Test 01/29/19 07:47 01/29/19 11:57 Bedside Glucose 122 159 Medications Medication Current Medications Pantoprazole (Protonix Tab) 40 mg DAILY@06 PO Last administered on 01/29/19at 06:00; Admin Dose 40 MG; Start 01/27/19 at 08:00 Acetaminophen (Tylenol Tab) 650 mg Q6H PRN PO MILD PAIN(1-3)OR ELEVATED TEMP; Start 01/27/19 at 08:00 Bisacodyl (Dulcolax) 10 mg Q12H PRN PO CONSTIPATION; Start 01/27/19 at 08:00 Amlodipine Besylate (Norvasc) 10 mg DAILY PO Last administered on 01/29/19at 08:30; Admin Dose 10 MG; Start 01/27/19 at 09:00 Levothyroxine Sodium (Synthroid) 75 mcg DAILY@06 PO Last administered on 01/29/19at 06:00; Admin Dose 75 MCG; Start 01/28/19 at 10:00 Losartan Potassium (Cozaar) 50 mg BID PO Last administered on 01/29/19at 08:30; Admin Dose 50 MG; Start 01/27/19 at 09:00 Potassium Chloride/Sodium Chloride 1,000 ml @ 50 mls/hr Q20H IV Last administered on 01/29/19at 08:31; Admin Dose 50 MLS/HR; Start 01/27/19 at 15:30 Aspirin (Aspirin) 81 mg DAILY PO Last administered on 01/29/19at 08:29; Admin Dose 81 MG; Start 01/28/19 at 09:00 Insulin Aspart (Novolog Insulin Pen) NOVOLOG *MILD* ALGORITHM WITH MEALS BEDTIME SC Last administered on 01/29/19at 12:04; Admin Dose 1 UNIT; Start 01/28/19 at 18:00 Miscellaneous Information 1 ea NOTE XX ; Start 01/28/19 at 12:30 Glucose (Glutose) 15 gm Q15M PRN PO DECREASED GLUCOSE; Start 01/28/19 at 12:30 Glucose (Glutose) 22.5 gm Q15M PRN PO DECREASED GLUCOSE; Start 01/28/19 at 12:30 Dextrose (D50w Syringe) 25 ml Q15M PRN IV DECREASED GLUCOSE; Start 01/28/19 at 12:30 Dextrose (D50w Syringe) 50 ml Q15M PRN IV DECREASED GLUCOSE; Start 01/28/19 at 12:30 Glucagon (Glucagen) 1 mg Q15M PRN IM DECREASED GLUCOSE; Start 01/28/19 at 12:30 Glucose (Glutose) 15 gm Q15M PRN BUCCAL DECREASED GLUCOSE; Start 01/28/19 at 12:30 Ferric Sodium Gluconate Complex 125 mg/Sodium Chloride 110 ml @ 110 mls/hr DAILY@1300 IVPB Last administered on 01/28/19at 16:43; Admin Dose 110 MLS/HR; Start 01/28/19 at 15:00; Stop 02/01/19 at 13:59 Cefepime HCl 50 ml @ 100 mls/hr Q12 IVPB Last administered on 01/29/19at 08:31; Admin Dose 100 MLS/HR; Start 01/28/19 at 21:00 Metoprolol Tartrate (Lopressor) 50 mg BID PO Last administered on 01/29/19at 08:30; Admin Dose 50 MG; Start 01/28/19 at 21:00 Metoprolol Tartrate (Lopressor) 5 mg Q4H PRN IV HR>110 Hold SBP<100; Start 01/28/19 at 15:30 ALBERTO SILVER MD Jan 29, 2019 12:48
[2019-01-29] MEDS: SOD FERRIC GLUC COMPLX 125 MG in SOD CHLORIDE 0.9% 100 ML IVPB SCH (13:12)
[2019-01-29 15:15] VITALS: BP 136/60; PULSE 70; RESP 20
--- NOTE | 2019-01-29 15:36 | CONS ---
Assessment/Plan Assessment/Plan Hospital Course (Demo Recall) Patient is awake looks comfortable no fevers overnight WBC 10.5 platelets 575 neutrophils 78 BUN 13 creatinine 0.68 troponin 0 0.236 Microbiology: MRSA swab positive, blood culture from another facility growing gram-positive cocci Antimicrobials: Cefepime Physical examination: This is a fragile cachectic elderly woman who is awake in no distress. Head atraumatic normocephalic sclera anicteric bugle mucosa dry patient has halitosis neck is supple chest rise symmetrical breath sounds clear heart S1-S2 abdomen soft bowel sounds present Assessment: 1. Gram-positive cocci bacteremia 2. Urinary tract infection as per urinalysis per report from another facility 3. Non-ST elevation NC 4. Hypertension 5. Cachexia 6. Diabetes Plan: We are going to add vancomycin to the regimen, repeat blood cultures and urine culture, obtain report from another facility and follow cardiology madi mmendations Consultation Date/Type/Reason Admit Date/Time Jan 27, 2019 at 06:14 Initial Consult Date Type of Consult id Requesting Provider: SATHYA MOSES MD Date/Time of Note DATE: 01/29/19 TIME: 15:35 Exam/Review of Systems Exam Vitals Vital Signs Date Temp Pulse Resp B/P (MAP) Pulse Ox O2 O2 Flow FiO2 Time Delivery Rate 01/29/19 97.9 70 20 136/60 96 15:15 (85) 01/29/19 Room Air 04:08 Intake and Output 01/28/19 01/28/19 01/29/19 1515:00 23:00 07:00 IntakeIntake Total 100 ml 210 ml BalanceBalance 100 ml 210 ml Results Result Diagram: 01/29/19 0514 01/29/19 0514 Results 24hrs Laboratory Tests Test 01/28/19 16:50 01/28/19 20:09 01/29/19 02:07 01/29/19 05:14 Bedside Glucose 112 206 136 White Blood Count 10.5 Red Blood Count 3.31 L Hemoglobin 8.1 L Hematocrit 26.0 L Mean Corpuscular 78.5 L Volume Mean Corpuscular 24.5 L Hemoglobin Mean Corpuscular 31.2 L Hemoglobin Concent Red Cell 15.5 H Distribution Width Platelet Count 575 H Mean Platelet Volume 9.4 Immature 0.800 H Granulocytes % Neutrophils % 78.0 H Lymphocytes % 12.4 L Monocytes % 7.9 Eosinophils % 0.6 Basophils % 0.3 Nucleated Red Blood 0.0 Cells % Immature 0.080 H Granulocytes # Neutrophils # 8.2 H Lymphocytes # 1.3 Monocytes # 0.8 Eosinophils # 0.1 Basophils # 0.0 Nucleated Red Blood 0.0 Cells # Sodium Level 135 Potassium Level 3.8 Chloride Level 104 Carbon Dioxide Level 22 Anion Gap 9 Blood Urea Nitrogen 13 Creatinine 0.68 Est Glomerular Filtrat Rate mL/min Glucose Level 128 Calcium Level 9.1 Troponin I 0.236 *H Test 01/29/19 07:47 01/29/19 11:57 Bedside Glucose 122 159 Medications Medication Current Medications Pantoprazole (Protonix Tab) 40 mg DAILY@06 PO Last administered on 01/29/19 06:00; Admin Dose 40 MG; Start 01/27/19 at 08:00 Acetaminophen (Tylenol Tab) 650 mg Q6H PRN PO MILD PAIN(1-3)OR ELEVATED TEMP; Start 01/27/19 at 08:00 Bisacodyl (Dulcolax) 10 mg Q12H PRN PO CONSTIPATION; Start 01/27/19 at 08:00 Amlodipine Besylate (Norvasc) 10 mg DAILY PO Last administered on 01/29/19 08:30; Admin Dose 10 MG; Start 01/27/19 at 09:00 Levothyroxine Sodium (Synthroid) 75 mcg DAILY@06 PO Last administered on 01/29/19 06:00; Admin Dose 75 MCG; Start 01/28/19 at 10:00 Losartan Potassium (Cozaar) 50 mg BID PO Last administered on 01/29/19 08:30; Admin Dose 50 MG; Start 01/27/19 at 09:00 Potassium Chloride/Sodium Chloride 1,000 ml @ 50 mls/hr Q20H IV Last administered on 01/29/19 08:31; Admin Dose 50 MLS/HR; Start 01/27/19 at 15:30 Aspirin (Aspirin) 81 mg DAILY PO Last administered on 01/29/19 08:29; Admin Dose 81 MG; Start 01/28/19 at 09:00 Insulin Aspart (Novolog Insulin Pen) NOVOLOG *MILD* ALGORITHM WITH MEALS BEDTIME SC Last administered on 01/29/19 12:04; Admin Dose 1 UNIT; Start 01/28/19 at 18:00 Miscellaneous Information 1 ea NOTE XX ; Start 01/28/19 at 12:30 Glucose (Glutose) 15 gm Q15M PRN PO DECREASED GLUCOSE; Start 01/28/19 at 12:30 Glucose (Glutose) 22.5 gm Q15M PRN PO DECREASED GLUCOSE; Start 01/28/19 at 12:30 Dextrose (D50w Syringe) 25 ml Q15M PRN IV DECREASED GLUCOSE; Start 01/28/19 at 12:30 Dextrose (D50w Syringe) 50 ml Q15M PRN IV DECREASED GLUCOSE; Start 01/28/19 at 12:30 Glucagon (Glucagen) 1 mg Q15M PRN IM DECREASED GLUCOSE; Start 01/28/19 at 12:30 Glucose (Glutose) 15 gm Q15M PRN BUCCAL DECREASED GLUCOSE; Start 01/28/19 at 12:30 Ferric Sodium Gluconate Complex 125 mg/Sodium Chloride 110 ml @ 110 mls/hr DAILY@1300 IVPB Last administered on 01/29/19at 13:12; Admin Dose 110 MLS/HR; Start 01/28/19 at 15:00; Stop 02/01/19 at 13:59 Cefepime HCl 50 ml @ 100 mls/hr Q12 IVPB Last administered on 01/29/19at 08:31; Admin Dose 100 MLS/HR; Start 01/28/19 at 21:00 Metoprolol Tartrate (Lopressor) 50 mg BID PO Last administered on 01/29/19at 08: 30; Admin Dose 50 MG; Start 01/28/19 at 21:00 Metoprolol Tartrate (Lopressor) 5 mg Q4H PRN IV HR>110 Hold SBP<100; Start 01/28/19 at 15:30 SHARDA LANDIS NP Jan 29, 2019 15:36
[2019-01-29] MEDS ORDERED: VANCOMYCIN IV PER PHARMACY XX SCH (16:00)
[2019-01-29] MEDS ORDERED: VANCOMYCIN 750 MG (PMX) 250 ML IVPB SCH (17:00)
[2019-01-29 19:57] VITALS: BP 130/57; PULSE 81; RESP 17
[2019-01-29] MEDS: MUPIROCIN 2% 22 GM OINT TOP SCH (20:20)
[2019-01-30 02:04] VITALS: BP 145/67; PULSE 72; RESP 18
[2019-01-30] MEDS: 1/2 NS + KCL 20 MEQ 1,000 ML IV SCH ×2 (03:30→12:24)
[2019-01-30 04:13] VITALS: BP 135/62; PULSE 68; RESP 17
[2019-01-30] MEDS: LEVOTHYROXINE 75 MCG TAB PO SCH (05:28)
[2019-01-30] MEDS: PANTOPRAZOLE (EC) 40 MG TAB PO SCH (05:28)
[2019-01-30 07:45] VITALS: BP 141/61; PULSE 73; RESP 18
[2019-01-30] MEDS: INSULIN ASPART [NOVOLOG] 3 ML PEN SC SCH ×4 (08:00→21:09)
[2019-01-30] MEDS: CEFEPIME 1GM/50 ML (PMX) 50 ML IVPB SCH ×2 (08:26→20:49)
[2019-01-30] MEDS: ASPIRIN 81 MG TAB PO SCH (08:27)
[2019-01-30] MEDS: METOPROLOL 50 MG TAB PO SCH ×2 (08:27→20:49)
[2019-01-30] MEDS: LOSARTAN 50 MG TAB PO SCH ×2 (08:28→20:47)
[2019-01-30] MEDS: AMLODIPINE 10 MG TAB PO SCH (08:28)
[2019-01-30] MEDS: MUPIROCIN 2% 22 GM OINT TOP SCH ×2 (08:28→20:55)
--- NOTE | 2019-01-30 11:24 | CONS ---
Consult Date/Type/Reason Admit Date/Time Jan 27, 2019 at 06:14 Initial Consult Date Requesting Provider: SATHYA MOSES MD Date/Time of Note DATE: 01/30/19 TIME: 11:22 Subjective No acute events - pt stale - no ectopy on tele, reports whole body aches but no focal CP now. ROS: No fever, no chills, no nausea, no vomiting, no diarrhea/constipation No recent weight changes No chest pain, no PND, no orthopnea - mild SOB No dizziness, blurred vision No thirst, no heat or cold intolerance Objective Vitals Vital Signs Date Temp Pulse Resp B/P (MAP) Pulse Ox O2 O2 Flow FiO2 Time Delivery Rate 01/30/19 98.1 73 18 141/61 98 Room Air 07:45 (87) Intake and Output 01/29/19 01/29/19 01/30/19 1414:59 22:59 06:59 IntakeIntake Total 1160 ml 650 ml BalanceBalance 1160 ml 650 ml Exam General: WN/WD/NAD, AOx 1-2 ill appearing HEENT: Unicetric/atraumatic/EOMI ( follows commands) NECK: JVD elevated, no thyromegaly Lymph: no lymphadenopathy HEART: regular with no S3, II/ systolic murmur at apex, PMI L LUNGS: Coarse sounds ABD: soft, NT, ND, +BS : Intact Neuro: non focal SKIN: chronic changes EXT: trace edema Results/Medications Result Diagram: 01/30/19 0501/30/19 0526 Results 24 hrs Laboratory Tests Test 01/29/19 11:57 01/29/19 16:59 01/29/19 20:27 01/30/19 05:26 Bedside Glucose 159 133 134 White Blood Count 9.5 Red Blood Count 3.41 L Hemoglobin 8.3 L Hematocrit 27.1 L Mean Corpuscular 79.5 L Volume Mean Corpuscular 24.3 L Hemoglobin Mean Corpuscular 30.6 L Hemoglobin Concent Red Cell 15.8 H Distribution Width Platelet Count 572 H Mean Platelet Volume 9.5 Immature 1.200 H Granulocytes % Neutrophils % 75.4 Lymphocytes % 14.2 L Monocytes % 8.1 Eosinophils % 0.8 Basophils % 0.3 Nucleated Red Blood 0.0 Cells % Immature 0.110 H Granulocytes # Neutrophils # 7.2 Lymphocytes # 1.4 Monocytes # 0.8 Eosinophils # 0.1 Basophils # 0.0 Nucleated Red Blood 0.0 Cells # Sodium Level 136 Potassium Level 3.8 Chloride Level 106 Carbon Dioxide Level 21 Anion Gap 9 Blood Urea Nitrogen 13 Creatinine 0.66 Est Glomerular Filtrat Rate mL/min Glucose Level 108 Calcium Level 9.1 Phosphorus Level 3.9 Magnesium Level 1.5 L Troponin I 0.172 *H Test 01/30/19 07:44 Bedside Glucose 104 Home Meds Active Scripts Amoxicillin-Clavulanate K* (Augmentin*) 875 Mg Tab, 875 MG PO BID for 10 Days, TAB Prov:SATHYA MOSES MD 07/12/15 Nystatin* (Nystop* Powder) 1 Applic Powder, 1 APPLIC TOP BID for 28 Days, BOTTLE Prov:SATHYA MOSES MD 07/12/15 Losartan Potassium* (Cozaar*) 50 Mg Tab, 50 MG PO Q12 for 10 Days, TAB Prov:SATHYA MOSES MD 07/12/15 Levothyroxine Sodium* (Synthroid*) 75 Mcg Tab, 75 MCG PO DAILY@06 for 28 Days, TAB Prov:SATHYA MOSES MD 07/12/15 Amlodipine Besylate* (Norvasc*) 10 Mg Tab, 10 MG PO DAILY for 28 Days, TAB Prov:SATHYA MOSES MD 07/12/15 Medications Current Medications Pantoprazole (Protonix Tab) 40 mg DAILY@06 PO Last administered on 01/30/19at 05:28; Admin Dose 40 MG; Start 01/27/19 at 08:00 Acetaminophen (Tylenol Tab) 650 mg Q6H PRN PO MILD PAIN(1-3)OR ELEVATED TEMP; Start 01/27/19 at 08:00 Bisacodyl (Dulcolax) 10 mg Q12H PRN PO CONSTIPATION; Start 01/27/19 at 08:00 Amlodipine Besylate (Norvasc) 10 mg DAILY PO Last administered on 01/30/19at 08:28; Admin Dose 10 MG; Start 01/27/19 at 09:00 Levothyroxine Sodium (Synthroid) 75 mcg DAILY@06 PO Last administered on 01/30/19at 05:28; Admin Dose 75 MCG; Start 01/28/19 at 10:00 Losartan Potassium (Cozaar) 50 mg BID PO Last administered on 01/30/19 08:28; Admin Dose 50 MG; Start 01/27/19 at 09:00 Potassium Chloride/Sodium Chloride 1,000 ml @ 50 mls/hr Q20H IV Last administered on 01/29/19 08:31; Admin Dose 50 MLS/HR; Start 01/27/19 at 15:30 Aspirin (Aspirin) 81 mg DAILY PO Last administered on 01/30/19 08:27; Admin Dose 81 MG; Start 01/28/19 at 09:00 Insulin Aspart (Novolog Insulin Pen) NOVOLOG *MILD* ALGORITHM WITH MEALS BEDTIME SC Last administered on 01/29/19 12:04; Admin Dose 1 UNIT; Start 01/28/19 at 18:00 Miscellaneous Information 1 ea NOTE XX ; Start 01/28/19 at 12:30 Glucose (Glutose) 15 gm Q15M PRN PO DECREASED GLUCOSE; Start 01/28/19 at 12:30 Glucose (Glutose) 22.5 gm Q15M PRN PO DECREASED GLUCOSE; Start 01/28/19 at 12:30 Dextrose (D50w Syringe) 25 ml Q15M PRN IV DECREASED GLUCOSE; Start 01/28/19 at 12:30 Dextrose (D50w Syringe) 50 ml Q15M PRN IV DECREASED GLUCOSE; Start 01/28/19 at 12:30 Glucagon (Glucagen) 1 mg Q15M PRN IM DECREASED GLUCOSE; Start 01/28/19 at 12:30 Glucose (Glutose) 15 gm Q15M PRN BUCCAL DECREASED GLUCOSE; Start 01/28/19 at 12:30 Ferric Sodium Gluconate Complex 125 mg/Sodium Chloride 110 ml @ 110 mls/hr DAILY@1300 IVPB Last administered on 01/29/19at 13:12; Admin Dose 110 MLS/HR; Start 01/28/19 at 15:00; Stop 02/01/19 at 13:59 Cefepime HCl 50 ml @ 100 mls/hr Q12 IVPB Last administered on 01/30/19 08:26; Admin Dose 100 MLS/HR; Start 01/28/19 at 21:00 Metoprolol Tartrate (Lopressor) 50 mg BID PO Last administered on 01/30/19 08:27; Admin Dose 50 MG; Start 01/28/19 at 21:00 Metoprolol Tartrate (Lopressor) 5 mg Q4H PRN IV HR>110 Hold SBP<100; Start 01/28/19 at 15:30 Vancomycin HCl (Vanco Iv Per Pharmacy) VANCOMYCIN PER PHARMACY PER PROTOCOL XX ; Start 01/29/19 at 16:00 Mupirocin (Bactroban) 1 applic BID TOP Last administered on 01/30/19at 08:28; Admin Dose 1 APPLIC; Start 01/29/19 at 21:00 Vancomycin HCl 100 ml @ 100 mls/hr Q24H IVPB ; Start 01/30/19 at 17:00 Assessment/Plan Hospital Course (Demo Recall) 1. Positive troponin in outside hospital. Assess significance, assess for ongoing true acute coronary syndrome.-minimally positive troponin here with downtrend at this time - no intervention planned no. 2. Abnormal echocardiogram with lateral T-wave inversion.- No change on serial ecg assessment - con't med rx. 3. Hypertension, under reasonable control.- better with therapy. 4. Tachycardia, borderline-c/w s Tach. Nl TSH. Episode of SVT to 150 ? PAFL/AT. Short run self limited - now in sinus. 5. Altered mental state/nephropathy. 6. Hypokalemia-improved - treated to goal. 7. Recurrent falls. 8. Generalized weakness. 9. Shortness of breath prior to admit at the hospital-ongoing 10. Hypothyroidism. 11. anemia-ongoing but unchanged - Hg 8.3 now. 12.DNR THERESA HAYNES MD Jan 30, 2019 11:24
[2019-01-30 12:08] VITALS: BP 111/59; PULSE 69; RESP 18
[2019-01-30] MEDS: SOD FERRIC GLUC COMPLX 125 MG in SOD CHLORIDE 0.9% 100 ML IVPB SCH (12:23)
--- NOTE | 2019-01-30 14:10 | CONS ---
Assessment/Plan Assessment/Plan Hospital Course (Demo Recall) No events, looks comfortable, no fevers Microbiology: MRSA swab positive, blood culture from another facility growing gram-positive cocci Antimicrobials: Cefepime Vanco Physical examination: This is a fragile cachectic elderly woman who is awake in no distress. Head atraumatic normocephalic sclera anicteric bugle mucosa dry patient has halitosis neck is supple chest rise symmetrical breath sounds clear heart S1-S2 abdomen soft bowel sounds present Assessment: 1. Gram-positive cocci bacteremia 2. Urinary tract infection as per urinalysis per report from another facility 3. Non-ST elevation HI 4. Hypertension 5. Cachexia 6. Diabetes Plan: Clinically unchanged, overall stable, continue antibiotics and await for final cultures Consultation Date/Type/Reason Admit Date/Time Jan 27, 2019 at 06:14 Initial Consult Date Type of Consult id Requesting Provider: SATHYA MOSES MD Date/Time of Note DATE: 01/30/19 TIME: 14:09 Exam/Review of Systems Exam Vitals Vital Signs Date Temp Pulse Resp B/P (MAP) Pulse Ox O2 O2 Flow FiO2 Time Delivery Rate 01/30/19 97.8 69 18 111/59 98 Room Air 12:08 (76) Intake and Output 01/29/19 01/29/19 01/30/19 1515:00 23:00 07:00 IntakeIntake Total 1160 ml 650 ml BalanceBalance 1160 ml 650 ml Results Result Diagram: 01/30/19 0526 01/30/19 0526 Results 24hrs Laboratory Tests Test 01/29/19 16:59 01/29/19 20:27 01/30/19 05:26 01/30/19 07:44 Bedside Glucose 133 134 104 White Blood Count 9.5 Red Blood Count 3.41 L Hemoglobin 8.3 L Hematocrit 27.1 L Mean Corpuscular 79.5 L Volume Mean Corpuscular 24.3 L Hemoglobin Mean Corpuscular 30.6 L Hemoglobin Concent Red Cell 15.8 H Distribution Width Platelet Count 572 H Mean Platelet Volume 9.5 Immature 1.200 H Granulocytes % Neutrophils % 75.4 Lymphocytes % 14.2 L Monocytes % 8.1 Eosinophils % 0.8 Basophils % 0.3 Nucleated Red Blood 0.0 Cells % Immature 0.110 H Granulocytes # Neutrophils # 7.2 Lymphocytes # 1.4 Monocytes # 0.8 Eosinophils # 0.1 Basophils # 0.0 Nucleated Red Blood 0.0 Cells # Sodium Level 136 Potassium Level 3.8 Chloride Level 106 Carbon Dioxide Level 21 Anion Gap 9 Blood Urea Nitrogen 13 Creatinine 0.66 Est Glomerular Filtrat Rate mL/min Glucose Level 108 Calcium Level 9.1 Phosphorus Level 3.9 Magnesium Level 1.5 L Troponin I 0.172 *H Test 01/30/19 12:12 Bedside Glucose 191 Medications Medication Current Medications Pantoprazole (Protonix Tab) 40 mg DAILY@06 PO Last administered on 01/30/19 05:28; Admin Dose 40 MG; Start 01/27/19 at 08:00 Acetaminophen (Tylenol Tab) 650 mg Q6H PRN PO MILD PAIN(1-3)OR ELEVATED TEMP; Start 01/27/19 at 08:00 Bisacodyl (Dulcolax) 10 mg Q12H PRN PO CONSTIPATION; Start 01/27/19 at 08:00 Amlodipine Besylate (Norvasc) 10 mg DAILY PO Last administered on 01/30/19 08:28; Admin Dose 10 MG; Start 01/27/19 at 09:00 Levothyroxine Sodium (Synthroid) 75 mcg DAILY@06 PO Last administered on 01/30/19 05:28; Admin Dose 75 MCG; Start 01/28/19 at 10:00 Losartan Potassium (Cozaar) 50 mg BID PO Last administered on 01/30/19 08:28; Admin Dose 50 MG; Start 01/27/19 at 09:00 Potassium Chloride/Sodium Chloride 1,000 ml @ 50 mls/hr Q20H IV Last administered on 01/30/19 12:24; Admin Dose 50 MLS/HR; Start 01/27/19 at 15:30 Aspirin (Aspirin) 81 mg DAILY PO Last administered on 01/30/19 08:27; Admin Dose 81 MG; Start 01/28/19 at 09:00 Insulin Aspart (Novolog Insulin Pen) NOVOLOG *MILD* ALGORITHM WITH MEALS BEDTIME SC Last administered on 01/30/19 12:31; Admin Dose 2 UNIT; Start 01/28/19 at 18:00 Miscellaneous Information 1 ea NOTE XX ; Start 01/28/19 at 12:30 Glucose (Glutose) 15 gm Q15M PRN PO DECREASED GLUCOSE; Start 01/28/19 at 12:30 Glucose (Glutose) 22.5 gm Q15M PRN PO DECREASED GLUCOSE; Start 01/28/19 at 12:30 Dextrose (D50w Syringe) 25 ml Q15M PRN IV DECREASED GLUCOSE; Start 01/28/19 at 12:30 Dextrose (D50w Syringe) 50 ml Q15M PRN IV DECREASED GLUCOSE; Start 01/28/19 at 12:30 Glucagon (Glucagen) 1 mg Q15M PRN IM DECREASED GLUCOSE; Start 01/28/19 at 12:30 Glucose (Glutose) 15 gm Q15M PRN BUCCAL DECREASED GLUCOSE; Start 01/28/19 at 12:30 Ferric Sodium Gluconate Complex 125 mg/Sodium Chloride 110 ml @ 110 mls/hr DAILY@1300 IVPB Last administered on 01/30/19at 12:23; Admin Dose 110 MLS/HR; Start 01/28/19 at 15:00; Stop 02/01/19 at 13:59 Cefepime HCl 50 ml @ 100 mls/hr Q12 IVPB Last administered on 01/30/19at 08:26; Admin Dose 100 MLS/HR; Start 01/28/19 at 21:00 Metoprolol Tartrate (Lopressor) 50 mg BID PO Last administered on 01/30/19at 08:27; Admin Dose 50 MG; Start 01/28/19 at 21:00 Metoprolol Tartrate (Lopressor) 5 mg Q4H PRN IV HR>110 Hold SBP<100; Start 01/28/19 at 15:30 Vancomycin HCl (Vanco Iv Per Pharmacy) VANCOMYCIN PER PHARMACY PER PROTOCOL XX ; Start 01/29/19 at 16:00 Mupirocin (Bactroban) 1 applic BID TOP Last administered on 01/30/19at 08:28; Admin Dose 1 APPLIC; Start 01/29/19 at 21:00 Vancomycin HCl 100 ml @ 100 mls/hr Q24H IVPB ; Start 01/30/19 at 17:00 SHARDA LANDIS NP Jan 30, 2019 14:10
--- NOTE | 2019-01-30 15:01 | PN ---
Date/Time of Note Date/Time of Note DATE: 01/30/19 TIME: 14:58 Assessment/Plan VTE Prophylaxis Risk score (from [facility]0 risk: 5 SCD applied (from [facility] No SCD contraindicated: low risk/ambulating Pharmacological prophylaxis: NA/contraindicated Pharm contraindication: low risk/ambulating Lines/Catheters IV Catheter Type (from [facility]): Peripheral IV Urinary Cath still in place: No Assessment/Plan Assessment/Plan 8 y/o with 1 Positive troponin in outside hospital. Assess significance, assess for ongoing true acute coronary syndrome.-minimally positive troponin here with downtrend at this time Abnormal echocardiogram with lateral T-wave inversion.- No chest pain , trop down trending 2. Sepsis due to UTI/ gram +bacterimia from OSH 3. metabolic encephalopathy vs dementia 4. Cachexia. 5. Iron deficiency Anemia 6. DM type II, controlled 7. Hypothyroidism 8. Malnourishment 9. electrolyte imbalance 10. hx of fall at home 11. S.p right hip surgery 12 [place] Assessment/Plan -cw cefepime/Vancomycin, fu final cx - fu ECHO - trend troponin trending down - cw losaratn/amlodipine and MTP -CW ferrlicit - replete Mg ID consult dr Darby -GI proph. Protonix -dr Erwin cardiology consult appreciated -blood cultures are positive from [facility] here - PT eval and mobility Rehab Result Diagram: 01/30/1952501/30/19525 Results 24hrs Laboratory Tests Test 01/29/19 16:59 01/29/19 20:27 01/30/19 05:26 01/30/19 07:44 Bedside Glucose 133 134 104 White Blood Count 9.5 Red Blood Count 3.41 L Hemoglobin 8.3 L Hematocrit 27.1 L Mean Corpuscular 79.5 L Volume Mean Corpuscular 24.3 L Hemoglobin Mean Corpuscular 30.6 L Hemoglobin Concent Red Cell 15.8 H Distribution Width Platelet Count 572 H Mean Platelet Volume 9.5 Immature 1.200 H Granulocytes % Neutrophils % 75.4 Lymphocytes % 14.2 L Monocytes % 8.1 Eosinophils % 0.8 Basophils % 0.3 Nucleated Red Blood 0.0 Cells % Immature 0.110 H Granulocytes # Neutrophils # 7.2 Lymphocytes # 1.4 Monocytes # 0.8 Eosinophils # 0.1 Basophils # 0.0 Nucleated Red Blood 0.0 Cells # Sodium Level 136 Potassium Level 3.8 Chloride Level 106 Carbon Dioxide Level 21 Anion Gap 9 Blood Urea Nitrogen 13 Creatinine 0.66 Est Glomerular Filtrat Rate mL/min Glucose Level 108 Calcium Level 9.1 Phosphorus Level 3.9 Magnesium Level 1.5 L Troponin I 0.172 *H Test 01/30/19 12:12 Bedside Glucose 191 Subjective 24 Hr Interval Summary Free Text/Dictation overall feels weak and tired Exam/Review of Systems Exam Vitals Vital Signs Date Temp Pulse Resp B/P (MAP) Pulse Ox O2 O2 Flow FiO2 Time Delivery Rate 01/30/19 97.8 69 18 111/59 98 Room Air 12:08 (76) Intake and Output 01/29/19 01/29/19 01/30/19 1515:00 23:00 07:00 IntakeIntake Total 1160 ml 650 ml BalanceBalance 1160 ml 650 ml Exam orientted x 2 Constitutional: alert Head: normocephalic Eyes: nl conjunctiva Neck: supple Respiratory: clear to auscultation Cardiovascular: regular rate and rhythm, other (SVT run) Genitourinary - Female: CVA tenderness; No nl adnexae, No nl external genitalia, No CMT, No uterus, No other Extremities: edema; No normal pulses, No calf tenderness, No cyanosis, No clubbing, No pitting pedal edema, No palpable cord, No tenderness, No other Neurological: confused Results Results 24hrs Laboratory Tests Test 01/29/19 16:59 01/29/19 20:27 01/30/19 05:26 01/30/19 07:44 Bedside Glucose 133 134 104 White Blood Count 9.5 Red Blood Count 3.41 L Hemoglobin 8.3 L Hematocrit 27.1 L Mean Corpuscular 79.5 L Volume Mean Corpuscular 24.3 L Hemoglobin Mean Corpuscular 30.6 L Hemoglobin Concent Red Cell 15.8 H Distribution Width Platelet Count 572 H Mean Platelet Volume 9.5 Immature 1.200 H Granulocytes % Neutrophils % 75.4 Lymphocytes % 14.2 L Monocytes % 8.1 Eosinophils % 0.8 Basophils % 0.3 Nucleated Red Blood 0.0 Cells % Immature 0.110 H Granulocytes # Neutrophils # 7.2 Lymphocytes # 1.4 Monocytes # 0.8 Eosinophils # 0.1 Basophils # 0.0 Nucleated Red Blood 0.0 Cells # Sodium Level 136 Potassium Level 3.8 Chloride Level 106 Carbon Dioxide Level 21 Anion Gap 9 Blood Urea Nitrogen 13 Creatinine 0.66 Est Glomerular Filtrat Rate mL/min Glucose Level 108 Calcium Level 9.1 Phosphorus Level 3.9 Magnesium Level 1.5 L Troponin I 0.172 *H Test 01/30/19 12:12 Bedside Glucose 191 Medications Medication Current Medications Pantoprazole (Protonix Tab) 40 mg DAILY@06 PO Last administered on 01/30/19 05:28; Admin Dose 40 MG; Start 01/27/19 at 08:00 Acetaminophen (Tylenol Tab) 650 mg Q6H PRN PO MILD PAIN(1-3)OR ELEVATED TEMP; Start 01/27/19 at 08:00 Bisacodyl (Dulcolax) 10 mg Q12H PRN PO CONSTIPATION; Start 01/27/19 at 08:00 Amlodipine Besylate (Norvasc) 10 mg DAILY PO Last administered on 01/30/19 08:28; Admin Dose 10 MG; Start 01/27/19 at 09:00 Levothyroxine Sodium (Synthroid) 75 mcg DAILY@06 PO Last administered on 01/30/19 05:28; Admin Dose 75 MCG; Start 01/28/19 at 10:00 Losartan Potassium (Cozaar) 50 mg BID PO Last administered on 01/30/19 08:28; Admin Dose 50 MG; Start 01/27/19 at 09:00 Potassium Chloride/Sodium Chloride 1,000 ml @ 50 mls/hr Q20H IV Last adminis tered on 01/30/19at 12:24; Admin Dose 50 MLS/HR; Start 01/27/19 at 15:30 Aspirin (Aspirin) 81 mg DAILY PO Last administered on 01/30/19 08:27; Admin Dose 81 MG; Start 01/28/19 at 09:00 Insulin Aspart (Novolog Insulin Pen) NOVOLOG *MILD* ALGORITHM WITH MEALS BEDTIME SC Last administered on 01/30/19 12:31; Admin Dose 2 UNIT; Start 01/28/19 at 18:00 Miscellaneous Information 1 ea NOTE XX ; Start 01/28/19 at 12:30 Glucose (Glutose) 15 gm Q15M PRN PO DECREASED GLUCOSE; Start 01/28/19 at 12:30 Glucose (Glutose) 22.5 gm Q15M PRN PO DECREASED GLUCOSE; Start 01/28/19 at 12:30 Dextrose (D50w Syringe) 25 ml Q15M PRN IV DECREASED GLUCOSE; Start 01/28/19 at 12:30 Dextrose (D50w Syringe) 50 ml Q15M PRN IV DECREASED GLUCOSE; Start 01/28/19 at 12:30 Glucagon (Glucagen) 1 mg Q15M PRN IM DECREASED GLUCOSE; Start 01/28/19 at 12:30 Glucose (Glutose) 15 gm Q15M PRN BUCCAL DECREASED GLUCOSE; Start 01/28/19 at 12:30 Ferric Sodium Gluconate Complex 125 mg/Sodium Chloride 110 ml @ 110 mls/hr DAILY@1300 IVPB Last administered on 01/30/19at 12:23; Admin Dose 110 MLS/HR; Start 01/28/19 at 15:00; Stop 02/01/19 at 13:59 Cefepime HCl 50 ml @ 100 mls/hr Q12 IVPB Last administered on 01/30/19at 08:26; Admin Dose 100 MLS/HR; Start 01/28/19 at 21:00 Metoprolol Tartrate (Lopressor) 50 mg BID PO Last administered on 01/30/19at 08:27; Admin Dose 50 MG; Start 01/28/19 at 21:00 Metoprolol Tartrate (Lopressor) 5 mg Q4H PRN IV HR>110 Hold SBP<100; Start 01/28/19 at 15:30 Vancomycin HCl (Vanco Iv Per Pharmacy) VANCOMYCIN PER PHARMACY PER PROTOCOL XX ; Start 01/29/19 at 16:00 Mupirocin (Bactroban) 1 applic BID TOP Last administered on 01/30/19at 08:28; Admin Dose 1 APPLIC; Start 01/29/19 at 21:00 Vancomycin HCl 100 ml @ 100 mls/hr Q24H IVPB ; Start 01/30/19 at 17:00 Miscellaneous Information (*Rx Drug Level Order Reminder*) VANCOMYCIN TROUGH AT 1600 ONCE ONCE XX ; Start 02/01/19 at 16:00; Stop 02/01/19 at 16:01 Magnesium Sulfate 3 gm/Dextrose 106 ml @ 35.333 mls/ hr ONCE ONCE IVPB ; St art 01/30/19 at 16:30; Stop 01/30/19 at 19:29 ALBERTO SILVER MD Jan 30, 2019 15:01
[2019-01-30 16:15] VITALS: BP 135/76; PULSE 68; RESP 18
[2019-01-30] MEDS: VANCOMYCIN 500 MG (PMX) 100 ML IVPB SCH (16:22)
[2019-01-30] MEDS ORDERED: MAGNESIUM SULFATE 3 GM in DEXTROSE 5% 100 ML IVPB ONE (16:30)
[2019-01-30 20:00] VITALS: BP 119/58; PULSE 72; RESP 19
[2019-01-31] VITALS: BP 134/61; PULSE 68; RESP 18
[2019-01-31 04:00] VITALS: BP 139/70; PULSE 68; RESP 18
[2019-01-31] MEDS: LEVOTHYROXINE 75 MCG TAB PO SCH (05:21)
[2019-01-31] MEDS: PANTOPRAZOLE (EC) 40 MG TAB PO SCH (05:21)
[2019-01-31 07:25] VITALS: BP 133/64; PULSE 73; RESP 18
[2019-01-31] MEDS: INSULIN ASPART [NOVOLOG] 3 ML PEN SC SCH ×4 (07:49→21:08)
[2019-01-31] MEDS: ASPIRIN 81 MG TAB PO SCH (08:21)
[2019-01-31] MEDS: CEFEPIME 1GM/50 ML (PMX) 50 ML IVPB SCH (08:21)
[2019-01-31] MEDS: METOPROLOL 50 MG TAB PO SCH ×2 (08:22→21:04)
[2019-01-31] MEDS: AMLODIPINE 10 MG TAB PO SCH (08:23)
[2019-01-31] MEDS: LOSARTAN 50 MG TAB PO SCH ×2 (08:23→21:05)
[2019-01-31] MEDS: MUPIROCIN 2% 22 GM OINT TOP SCH ×2 (08:24→21:09)
[2019-01-31 10:54] VITALS: BP 118/56; PULSE 63; RESP 18
[2019-01-31] MEDS: SOD FERRIC GLUC COMPLX 125 MG in SOD CHLORIDE 0.9% 100 ML IVPB SCH (12:40)
--- NOTE | 2019-01-31 13:00 | CONS ---
Assessment/Plan Assessment/Plan Hospital Course (Demo Recall) IMP: 1. Positive troponin.-minimally positive troponin here with downtrend at this time. 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 Abnormal echocardiogram with lateral T-wave inversion.- No change on serial ecg assessment 3. Hypertension, under reasonable control. 4. Tachycardia, borderline-c/w s Tach. Nl TSH. Episode of SVT to 150 ? PAFL/AT. Short run self limited. No recurrence on BB 5. Altered mental state/nephropathy. 6. Hypokalemia-improved 7. Recurrent falls. 8. Generalized weakness. 9. Shortness of breath prior to admit at the hospital-ongoing 10. Hypothyroidism. 11. anemia-ongoing but unchanged 12.DNR 14. Bacteremia-by OSH Bld cx's Recc: -Tele -Continue to trend cardiac enzymes -Contine asa and should be considered for systemic anticoagulation but given ongoing microcytic anemia will continue asa monotherapy at this time as tolerated -continue BB at current dose and follow for recurrent SVT and if so will consider amiodarone -continue losartan/norvasc and follow reasonable BP -Contineu abx's and f/u cx data -will fu echo Consultation Date/Type/Reason Admit Date/Time Jan 27, 2019 at 06:14 Initial Consult Date 01/27/19 Type of Consult Cardiology Reason for Consultation positive troponin Requesting Provider: SATHYA MOSES MD Date/Time of Note DATE: 01/31/19 TIME: 12:54 Exam/Review of Systems Vital Signs Vitals Vital Signs Date Temp Pulse Resp B/P (MAP) Pulse Ox O2 O2 Flow FiO2 Time Delivery Rate 01/31/19 98.3 63 18 118/56 99 Room Air 10:54 (76) Intake and Output 01/30/19 01/30/19 01/31/19 1515:00 23:00 07:00 IntakeIntake Total 360 ml 510.333 ml BalanceBalance 360 ml 510.333 ml Exam Exam Review of Systems: CONSTITUTIONAL: No fevers, chills. PULMONARY: No sob CARDIOVASCULAR: No chest pain/palpitations GASTROINTESTINAL: No nausea/vomiting. GENITOURINARY: No hematuria/dysuria. MUSCULOSKELETAL: No myagias/arthalgias. PSYCHIATRIC: The patient denies depression. NEUROLOGIC: confused Constitutional: alert Psych: confusion Head: normocephalic ENMT: mucosa pink and moist Neck: supple, jvd (9 cm water) Respiratory: diminished breath sounds (at bases/B) Cardiovascular: regular rate and rhythm Gastrointestinal: soft, non-tender Musculoskeletal: muscle tone (normal) Extremities: edema (nonr) Neurological: confused Labs Result Diagram: 01/31/19 0515 01/31/19 0515 Results 24hrs Laboratory Tests Test 01/30/19 17:07 01/30/19 20:59 01/31/19 01:57 01/31/19 05:15 Bedside Glucose 174 263 H 147 White Blood Count 10.8 Red Blood Count 3.28 L Hemoglobin 8.1 L Hematocrit 26.4 L Mean Corpuscular 80.5 L Volume Mean Corpuscular 24.7 L Hemoglobin Mean Corpuscular 30.7 L Hemoglobin Concent Red Cell 15.9 H Distribution Width Platelet Count 578 H Mean Platelet Volume 9.7 Immature 1.600 H Granulocytes % Neutrophils % 75.9 Lymphocytes % 12.7 L Monocytes % 8.1 Eosinophils % 1.2 Basophils % 0.5 Nucleated Red Blood 0.0 Cells % Immature 0.170 H Granulocytes # Neutrophils # 8.2 H Lymphocytes # 1.4 Monocytes # 0.9 Eosinophils # 0.1 Basophils # 0.1 Nucleated Red Blood 0.0 Cells # Sodium Level 135 Potassium Level 3.7 Chloride Level 105 Carbon Dioxide Level 22 Anion Gap 8 Blood Urea Nitrogen 14 Creatinine 0.69 Est Glomerular Filtrat Rate mL/min Glucose Level 123 Calcium Level 9.0 Phosphorus Level 3.7 Magnesium Level 2.3 Test 01/31/19 07:46 01/31/19 11:46 Bedside Glucose 156 146 Medications Medications Current Medications Pantoprazole (Protonix Tab) 40 mg DAILY@06 PO Last administered on 01/31/19at 05:21; Admin Dose 40 MG; Start 01/27/19 at 08:00 Acetaminophen (Tylenol Tab) 650 mg Q6H PRN PO MILD PAIN(1-3)OR ELEVATED TEMP; Start 01/27/19 at 08:00 Bisacodyl (Dulcolax) 10 mg Q12H PRN PO CONSTIPATION; Start 01/27/19 at 08:00 Amlodipine Besylate (Norvasc) 10 mg DAILY PO Last administered on 01/31/19at 08:23; Admin Dose 10 MG; Start 01/27/19 at 09:00 Levothyroxine Sodium (Synthroid) 75 mcg DAILY@06 PO Last administered on 01/31/19at 05:21; Admin Dose 75 MCG; Start 01/28/19 at 10:00 Losartan Potassium (Cozaar) 50 mg BID PO Last administered on 01/31/19at 08:23; Admin Dose 50 MG; Start 01/27/19 at 09:00 Aspirin (Aspirin) 81 mg DAILY PO Last administered on 01/31/19at 08:21; Admin Dose 81 MG; Start 01/28/19 at 09:00 Insulin Aspart (Novolog Insulin Pen) NOVOLOG *MILD* ALGORITHM WITH MEALS BEDTIME SC Last administered on 01/31/19at 11:51; Admin Dose 1 UNIT; Start 01/28/19 at 18:00 Miscellaneous Information 1 ea NOTE XX ; Start 01/28/19 at 12:30 Glucose (Glutose) 15 gm Q15M PRN PO DECREASED GLUCOSE; Start 01/28/19 at 12:30 Glucose (Glutose) 22.5 gm Q15M PRN PO DECREASED GLUCOSE; Start 01/28/19 at 12:30 Dextrose (D50w Syringe) 25 ml Q15M PRN IV DECREASED GLUCOSE; Start 01/28/19 at 12:30 Dextrose (D50w Syringe) 50 ml Q15M PRN IV DECREASED GLUCOSE; Start 01/28/19 at 12:30 Glucagon (Glucagen) 1 mg Q15M PRN IM DECREASED GLUCOSE; Start 01/28/19 at 12:30 Glucose (Glutose) 15 gm Q15M PRN BUCCAL DECREASED GLUCOSE; Start 01/28/19 at 12:30 Ferric Sodium Gluconate Complex 125 mg/Sodium Chloride 110 ml @ 110 mls/hr DAILY@1300 IVPB Last administered on 01/31/19at 12:40; Admin Dose 110 MLS/HR; Start 01/28/19 at 15:00; Stop 02/01/19 at 13:59 Cefepime HCl 50 ml @ 100 mls/hr Q12 IVPB Last administered on 01/31/19at 08:21; Admin Dose 100 MLS/HR; Start 01/28/19 at 21:00 Metoprolol Tartrate (Lopressor) 50 mg BID PO Last administered on 01/31/19at 08:22; Admin Dose 50 MG; Start 01/28/19 at 21:00 Metoprolol Tartrate (Lopressor) 5 mg Q4H PRN IV HR>110 Hold SBP<100; Start 01/28/19 at 15:30 Vancomycin HCl (Vanco Iv Per Pharmacy) VANCOMYCIN PER PHARMACY PER PROTOCOL XX ; Start 01/29/19 at 16:00 Mupirocin (Bactroban) 1 applic BID TOP Last administered on 01/31/19at 08:24; Admin Dose 1 APPLIC; Start 01/29/19 at 21:00 Vancomycin HCl 100 ml @ 100 mls/hr Q24H IVPB Last administered on 01/30/19at 16:22; Admin Dose 100 MLS/HR; Start 01/30/19 at 17:00 Miscellaneous Information (*Rx Drug Level Order Reminder*) VANCOMYCIN TROUGH AT 1600 ONCE ONCE XX ; Start 02/01/19 at 16:00; Stop 02/01/19 at 16:01 TELLY ROSSI Jan 31, 2019 13:00
--- NOTE | 2019-01-31 13:25 | PN ---
Date/Time of Note Date/Time of Note DATE: 01/31/19 TIME: 13:25 Assessment/Plan VTE Prophylaxis Risk score (from Ns)>0 risk: 5 SCD applied (from [facility] [place]): No SCD contraindicated: low risk/ambulating Pharmacological prophylaxis: NA/contraindicated Pharm contraindication: low risk/ambulating Lines/Catheters IV [facility]from [facility] Saline Lock Urinary Cath still in place: No Assessment/Plan Hospital Course 88 y/o with 1 Positive troponin in outside hospital. Assess significance, assess for ongoing true acute coronary syndrome.-minimally positive troponin here with downtrend at this time Abnormal echocardiogram with lateral T-wave inversion.- No chest pain , trop down trending 2. Sepsis due to UTI/ gram +bacterimia from OSH 3. metabolic encephalopathy vs dementia 4. Cachexia. 5. Iron deficiency Anemia 6. DM type II, controlled 7. Hypothyroidism 8. Malnourishment 9. electrolyte imbalance 10. hx of fall at home 11. S.p right hip surgery 12 Hypomag 13 Hx falls with scalp swelling Assessment/Plan - Ct head s/p fall -cw Vancomycin, fu final cx - trend troponin trending down - cw losaratn/amlodipine and MTP -CW ferrlicit - Cx NEG so far ID consult dr Darby -GI proph. Protonix -dr Erwin cardiology consult appreciated -blood cultures are positive from [facility] here - PT eval and mobility DC planning Result Diagram: 01/31/1915 01/31/19 0515 Results 24hrs Laboratory Tests Test 01/30/19 17:07 01/30/19 20:59 01/31/19 01:57 01/31/19 05:15 Bedside Glucose 174 263 H 147 White Blood Count 10.8 Red Blood Count 3.28 L Hemoglobin 8.1 L Hematocrit 26.4 L Mean Corpuscular 80.5 L Volume Mean Corpuscular 24.7 L Hemoglobin Mean Corpuscular 30.7 L Hemoglobin Concent Red Cell 15.9 H Distribution Width Platelet Count 578 H Mean Platelet Volume 9.7 Immature 1.600 H Granulocytes % Neutrophils % 75.9 Lymphocytes % 12.7 L Monocytes % 8.1 Eosinophils % 1.2 Basophils % 0.5 Nucleated Red Blood 0.0 Cells % Immature 0.170 H Granulocytes # Neutrophils # 8.2 H Lymphocytes # 1.4 Monocytes # 0.9 Eosinophils # 0.1 Basophils # 0.1 Nucleated Red Blood 0.0 Cells # Sodium Level 135 Potassium Level 3.7 Chloride Level 105 Carbon Dioxide Level 22 Anion Gap 8 Blood Urea Nitrogen 14 Creatinine 0.69 Est Glomerular Filtrat Rate mL/min Glucose Level 123 Calcium Level 9.0 Phosphorus Level 3.7 Magnesium Level 2.3 Test 01/31/19 07:46 01/31/19 11:46 Bedside Glucose 156 146 Subjective 24 Hr Interval Summary Free Text/Dictation Notes to have swelling on scalp pt has ho falls Exam/Review of Systems Exam Vitals Vital Signs Date Temp Pulse Resp B/P (MAP) Pulse Ox O2 O2 Flow FiO2 Time Delivery Rate 01/31/19 98.3 63 18 118/56 99 Room Air 10:54 (76) Intake and Output 01/30/19 01/30/19 01/31/19 1515:00 23:00 07:00 IntakeIntake Total 360 ml 510.333 ml BalanceBalance 360 ml 510.333 ml Exam orientted x 3, scalp, soft palpable 3/3 cm swelling, mild ttp Constitutional: alert Head: normocephalic Eyes: nl conjunctiva Neck: supple Respiratory: clear to auscultation Cardiovascular: regular rate and rhythm, other (SVT run) Genitourinary - Female: CVA tenderness; No nl adnexae, No nl external genitalia, No CMT, No uterus, No other Extremities: edema; No normal pulses, No calf tenderness, No cyanosis, No clubbing, No pitting pedal edema, No palpable cord, No tenderness, No other Neurological: confused Results Results 24hrs Laboratory Tests Test 01/30/19 17:07 01/30/19 20:59 01/31/19 01:57 01/31/19 05:15 Bedside Glucose 174 263 H 147 White Blood Count 10.8 Red Blood Count 3.28 L Hemoglobin 8.1 L Hematocrit 26.4 L Mean Corpuscular 80.5 L Volume Mean Corpuscular 24.7 L Hemoglobin Mean Corpuscular 30.7 L Hemoglobin Concent Red Cell 15.9 H Distribution Width Platelet Count 578 H Mean Platelet Volume 9.7 Immature 1.600 H Granulocytes % Neutrophils % 75.9 Lymphocytes % 12.7 L Monocytes % 8.1 Eosinophils % 1.2 Basophils % 0.5 Nucleated Red Blood 0.0 Cells % Immature 0.170 H Granulocytes # Neutrophils # 8.2 H Lymphocytes # 1.4 Monocytes # 0.9 Eosinophils # 0.1 Basophils # 0.1 Nucleated Red Blood 0.0 Cells # Sodium Level 135 Potassium Level 3.7 Chloride Level 105 Carbon Dioxide Level 22 Anion Gap 8 Blood Urea Nitrogen 14 Creatinine 0.69 Est Glomerular Filtrat Rate mL/min Glucose Level 123 Calcium Level 9.0 Phosphorus Level 3.7 Magnesium Level 2.3 Test 01/31/19 07:46 01/31/19 11:46 Bedside Glucose 156 146 Medications Medication Current Medications Pantoprazole (Protonix Tab) 40 mg DAILY@06 PO Last administered on 01/31/19at 05:21; Admin Dose 40 MG; Start 01/27/19 at 08:00 Acetaminophen (Tylenol Tab) 650 mg Q6H PRN PO MILD PAIN(1-3)OR ELEVATED TEMP; Start 01/27/19 at 08:00 Bisacodyl (Dulcolax) 10 mg Q12H PRN PO CONSTIPATION; Start 01/27/19 at 08:00 Amlodipine Besylate (Norvasc) 10 mg DAILY PO Last administered on 01/31/19at 08:23; Admin Dose 10 MG; Start 01/27/19 at 09:00 Levothyroxine Sodium (Synthroid) 75 mcg DAILY@06 PO Last administered on 01/31/19at 05:21; Admin Dose 75 MCG; Start 01/28/19 at 10:00 Losartan Potassium (Cozaar) 50 mg BID PO Last administered on 01/31/19at 08:23; Admin Dose 50 MG; Start 01/27/19 at 09:00 Aspirin (Aspirin) 81 mg DAILY PO Last administered on 01/31/19at 08:21; Admin Dose 81 MG; Start 01/28/19 at 09:00 Insulin Aspart (Novolog Insulin Pen) NOVOLOG *MILD* ALGORITHM WITH MEALS BEDTIME SC Last administered on 01/31/19at 11:51; Admin Dose 1 UNIT; Start 01/28/19 at 18:00 Miscellaneous Information 1 ea NOTE XX ; Start 01/28/19 at 12:30 Glucose (Glutose) 15 gm Q15M PRN PO DECREASED GLUCOSE; Start 01/28/19 at 12:30 Glucose (Glutose) 22.5 gm Q15M PRN PO DECREASED GLUCOSE; Start 01/28/19 at 12:30 Dextrose (D50w Syringe) 25 ml Q15M PRN IV DECREASED GLUCOSE; Start 01/28/19 at 12:30 Dextrose (D50w Syringe) 50 ml Q15M PRN IV DECREASED GLUCOSE; Start 01/28/19 at 12:30 Glucagon (Glucagen) 1 mg Q15M PRN IM DECREASED GLUCOSE; Start 01/28/19 at 12:30 Glucose (Glutose) 15 gm Q15M PRN BUCCAL DECREASED GLUCOSE; Start 01/28/19 at 12:30 Ferric Sodium Gluconate Complex 125 mg/Sodium Chloride 110 ml @ 110 mls/hr DAILY@1300 IVPB Last administered on 01/31/19at 12:40; Admin Dose 110 MLS/HR; Start 01/28/19 at 15:00; Stop 02/01/19 at 13:59 Cefepime HCl 50 ml @ 100 mls/hr Q12 IVPB Last administered on 01/31/19at 08:21; Admin Dose 100 MLS/HR; Start 01/28/19 at 21:00 Metoprolol Tartrate (Lopressor) 50 mg BID PO Last administered on 01/31/19at 08:22; Admin Dose 50 MG; Start 01/28/19 at 21:00 Metoprolol Tartrate (Lopressor) 5 mg Q4H PRN IV HR>110 Hold SBP<100; Start 01/28/19 at 15:30 Vancomycin HCl (Vanco Iv Per Pharmacy) VANCOMYCIN PER PHARMACY PER PROTOCOL XX ; Start 01/29/19 at 16:00 Mupirocin (Bactroban) 1 applic BID TOP Last administered on 01/31/19at 08:24; Admin Dose 1 APPLIC; Start 01/29/19 at 21:00 Vancomycin HCl 100 ml @ 100 mls/hr Q24H IVPB Last administered on 01/30/19at 16:22; Admin Dose 100 MLS/HR; Start 01/30/19 at 17:00 Miscellaneous Information (*Rx Drug Level Order Reminder*) VANCOMYCIN TROUGH AT 1600 ONCE ONCE XX ; Start 02/01/19 at 16:00; Stop 02/01/19 at 16:01 ALBERTO SILVER MD Jan 31, 2019 13:25
--- NOTE | 2019-01-31 13:26 | PN ---
Date/Time of Note Date/Time of Note DATE: 01/31/19 TIME: 13:26 Assessment/Plan VTE Prophylaxis Risk score (from Ns)>0 risk: 5 SCD applied (from Nsg): No Lines/Catheters IV Catheter Type (from Nrs): Saline Lock Urinary Cath still in place: No Assessment/Plan Result Diagram: 01/31/19 0515 01/31/19 0515 Results 24hrs Laboratory Tests Test 01/30/19 17:07 01/30/19 20:59 01/31/19 01:57 01/31/19 05:15 Bedside Glucose 174 263 H 147 White Blood Count 10.8 Red Blood Count 3.28 L Hemoglobin 8.1 L Hematocrit 26.4 L Mean Corpuscular 80.5 L Volume Mean Corpuscular 24.7 L Hemoglobin Mean Corpuscular 30.7 L Hemoglobin Concent Red Cell 15.9 H Distribution Width Platelet Count 578 H Mean Platelet Volume 9.7 Immature 1.600 H Granulocytes % Neutrophils % 75.9 Lymphocytes % 12.7 L Monocytes % 8.1 Eosinophils % 1.2 Basophils % 0.5 Nucleated Red Blood 0.0 Cells % Immature 0.170 H Granulocytes # Neutrophils # 8.2 H Lymphocytes # 1.4 Monocytes # 0.9 Eosinophils # 0.1 Basophils # 0.1 Nucleated Red Blood 0.0 Cells # Sodium Level 135 Potassium Level 3.7 Chloride Level 105 Carbon Dioxide Level 22 Anion Gap 8 Blood Urea Nitrogen 14 Creatinine 0.69 Est Glomerular Filtrat Rate mL/min Glucose Level 123 Calcium Level 9.0 Phosphorus Level 3.7 Magnesium Level 2.3 Test 01/31/19 07:46 01/31/19 11:46 Bedside Glucose 156 146 Exam/Review of Systems Exam Vitals Vital Signs Date Temp Pulse Resp B/P (MAP) Pulse Ox O2 O2 Flow FiO2 Time Delivery Rate 01/31/19 98.3 63 18 118/56 99 Room Air 10:54 (76) Intake and Output 01/30/19 01/30/19 01/31/19 1414:59 22:59 06:59 IntakeIntake Total 360 ml 510.333 ml BalanceBalance 360 ml 510.333 ml Results Results 24hrs Laboratory Tests Test 01/30/19 17:07 01/30/19 20:59 01/31/19 01:57 01/31/19 05:15 Bedside Glucose 174 263 H 147 White Blood Count 10.8 Red Blood Count 3.28 L Hemoglobin 8.1 L Hematocrit 26.4 L Mean Corpuscular 80.5 L Volume Mean Corpuscular 24.7 L Hemoglobin Mean Corpuscular 30.7 L Hemoglobin Concent Red Cell 15.9 H Distribution Width Platelet Count 578 H Mean Platelet Volume 9.7 Immature 1.600 H Granulocytes % Neutrophils % 75.9 Lymphocytes % 12.7 L Monocytes % 8.1 Eosinophils % 1.2 Basophils % 0.5 Nucleated Red Blood 0.0 Cells % Immature 0.170 H Granulocytes # Neutrophils # 8.2 H Lymphocytes # 1.4 Monocytes # 0.9 Eosinophils # 0.1 Basophils # 0.1 Nucleated Red Blood 0.0 Cells # Sodium Level 135 Potassium Level 3.7 Chloride Level 105 Carbon Dioxide Level 22 Anion Gap 8 Blood Urea Nitrogen 14 Creatinine 0.69 Est Glomerular Filtrat Rate mL/min Glucose Level 123 Calcium Level 9.0 Phosphorus Level 3.7 Magnesium Level 2.3 Test 01/31/19 07:46 01/31/19 11:46 Bedside Glucose 156 146 Medications Medication Current Medications Pantoprazole (Protonix Tab) 40 mg DAILY@06 PO Last administered on 01/31/19 05:21; Admin Dose 40 MG; Start 01/27/19 at 08:00 Acetaminophen (Tylenol Tab) 650 mg Q6H PRN PO MILD PAIN(1-3)OR ELEVATED TEMP; Start 01/27/19 at 08:00 Bisacodyl (Dulcolax) 10 mg Q12H PRN PO CONSTIPATION; Start 01/27/19 at 08:00 Amlodipine Besylate (Norvasc) 10 mg DAILY PO Last administered on 01/31/19at 08:23; Admin Dose 10 MG; Start 01/27/19 at 09:00 Levothyroxine Sodium (Synthroid) 75 mcg DAILY@06 PO Last administered on 01/31/19 05:21; Admin Dose 75 MCG; Start 01/28/19 at 10:00 Losartan Potassium (Cozaar) 50 mg BID PO Last administered on 01/31/19at 08:23; Admin Dose 50 MG; Start 01/27/19 at 09:00 Aspirin (Aspirin) 81 mg DAILY PO Last administered on 01/31/19at 08:21; Admin Dose 81 MG; Start 01/28/19 at 09:00 Insulin Aspart (Novolog Insulin Pen) NOVOLOG *MILD* ALGORITHM WITH MEALS BEDTIME SC Last administered on 01/31/19at 11:51; Admin Dose 1 UNIT; Start at 18:00 Miscellaneous Information 1 ea NOTE XX ; Start 01/28/19 at 12:30 Glucose (Glutose) 15 gm Q15M PRN PO DECREASED GLUCOSE; Start 01/28/19 at 12:30 Glucose (Glutose) 22.5 gm Q15M PRN PO DECREASED GLUCOSE; Start 01/28/19 at 12:30 Dextrose (D50w Syringe) 25 ml Q15M PRN IV DECREASED GLUCOSE; Start 01/28/19 at 12:30 Dextrose (D50w Syringe) 50 ml Q15M PRN IV DECREASED GLUCOSE; Start 01/28/19 at 12:30 Glucagon (Glucagen) 1 mg Q15M PRN IM DECREASED GLUCOSE; Start 01/28/19 at 12:30 Glucose (Glutose) 15 gm Q15M PRN BUCCAL DECREASED GLUCOSE; Start 01/28/19 at 12:30 Ferric Sodium Gluconate Complex 125 mg/Sodium Chloride 110 ml @ 110 mls/hr DAILY@1300 IVPB Last administered on 01/31/19at 12:40; Admin Dose 110 MLS/HR; Start 01/28/19 at 15:00; Stop 02/01/19 at 13:59 Cefepime HCl 50 ml @ 100 mls/hr Q12 IVPB Last administered on 01/31/19at 08:21; Admin Dose 100 MLS/HR; Start 01/28/19 at 21:00 Metoprolol Tartrate (Lopressor) 50 mg BID PO Last administered on 01/31/19at 08:22; Admin Dose 50 MG; Start 01/28/19 at 21:00 Metoprolol Tartrate (Lopressor) 5 mg Q4H PRN IV HR>110 Hold SBP<100; Start 01/28/19 at 15:30 Vancomycin HCl (Vanco Iv Per Pharmacy) VANCOMYCIN PER PHARMACY PER PROTOCOL XX ; Start 01/29/19 at 16:00 Mupirocin (Bactroban) 1 applic BID TOP Last administered on 01/31/19at 08:24; Admin Dose 1 APPLIC; Start 01/29/19 at 21:00 Vancomycin HCl 100 ml @ 100 mls/hr Q24H IVPB Last administered on 01/30/19at 16:22; Admin Dose 100 MLS/HR; Start 01/30/19 at 17:00 Miscellaneous Information (*Rx Drug Level Order Reminder*) VANCOMYCIN TROUGH AT 1600 ONCE ONCE XX ; Start 02/01/19 at 16:00; Stop 02/01/19 at 16:01 ALBERTO SILVER MD Jan 31, 2019 13:26
--- NOTE | 2019-01-31 14:24 | CONS ---
Assessment/Plan Assessment/Plan Hospital Course (Demo Recall) No events, awake, looks comfortable, no fevers Microbiology: MRSA swab positive, blood culture from another facility growing gram-positive cocci, bld and urine cx neg Antimicrobials: Cefepime Vanco Physical examination: This is a fragile cachectic elderly woman who is awake in no distress. Head atraumatic normocephalic sclera anicteric bugle mucosa dry patient has halitosis neck is supple chest rise symmetrical breath sounds clear heart S1-S2 abdomen soft bowel sounds present Assessment: 1. Gram-positive cocci bacteremia 2. Urinary tract infection as per urinalysis per report from another facility 3. Non-ST elevation IN 4. Hypertension 5. Cachexia 6. Diabetes Plan: Clinically unchanged, stable, blood cultures from [place] still pending, DC cefepime Consultation Date/Type/Reason Admit Date/Time Jan 27, 2019 at 06:14 Initial Consult Date Type of Consult id Requesting Provider: SATHYA MOSES MD Date/Time of Note DATE: 01/31/19 TIME: 14:23 Exam/Review of Systems Exam Vitals Vital Signs Date Temp Pulse Resp B/P (MAP) Pulse Ox O2 O2 Flow FiO2 Time Delivery Rate 01/31/19 98.3 63 18 118/56 99 Room Air 10:54 (76) Intake and Output 01/30/19 01/30/19 01/31/19 1515:00 23:00 07:00 IntakeIntake Total 360 ml 510.333 ml BalanceBalance 360 ml 510.333 ml Results Result Diagram: 01/31/19 0515 01/31/19 0515 Results 24hrs Laboratory Tests Test 01/30/19 17:07 01/30/19 20:59 01/31/19 01:57 01/31/19 05:15 Bedside Glucose 174 263 H 147 White Blood Count 10.8 Red Blood Count 3.28 L Hemoglobin 8.1 L Hematocrit 26.4 L Mean Corpuscular 80.5 L Volume Mean Corpuscular 24.7 L Hemoglobin Mean Corpuscular 30.7 L Hemoglobin Concent Red Cell 15.9 H Distribution Width Platelet Count 578 H Mean Platelet Volume 9.7 Immature 1.600 H Granulocytes % Neutrophils % 75.9 Lymphocytes % 12.7 L Monocytes % 8.1 Eosinophils % 1.2 Basophils % 0.5 Nucleated Red Blood 0.0 Cells % Immature 0.170 H Granulocytes # Neutrophils # 8.2 H Lymphocytes # 1.4 Monocytes # 0.9 Eosinophils # 0.1 Basophils # 0.1 Nucleated Red Blood 0.0 Cells # Sodium Level 135 Potassium Level 3.7 Chloride Level 105 Carbon Dioxide Level 22 Anion Gap 8 Blood Urea Nitrogen 14 Creatinine 0.69 Est Glomerular Filtrat Rate mL/min Glucose Level 123 Calcium Level 9.0 Phosphorus Level 3.7 Magnesium Level 2.3 Test 01/31/19 07:46 01/31/19 11:46 Bedside Glucose 156 146 Medications Medication Current Medications Pantoprazole (Protonix Tab) 40 mg DAILY@06 PO Last administered on 01/31/19at 05:21; Admin Dose 40 MG; Start 01/27/19 at 08:00 Acetaminophen (Tylenol Tab) 650 mg Q6H PRN PO MILD PAIN(1-3)OR ELEVATED TEMP; Start 01/27/19 at 08:00 Bisacodyl (Dulcolax) 10 mg Q12H PRN PO CONSTIPATION; Start 01/27/19 at 08:00 Amlodipine Besylate (Norvasc) 10 mg DAILY PO Last administered on 01/31/19at 08:23; Admin Dose 10 MG; Start 01/27/19 at 09:00 Levothyroxine Sodium (Synthroid) 75 mcg DAILY@06 PO Last administered on 9at 05:21; Admin Dose 75 MCG; Start 01/28/19 at 10:00 Losartan Potassium (Cozaar) 50 mg BID PO Last administered on 01/31/19at 08:23; Admin Dose 50 MG; Start 01/27/19 at 09:00 Aspirin (Aspirin) 81 mg DAILY PO Last administered on 01/31/19at 08:21; Admin Dose 81 MG; Start 01/28/19 at 09:00 Insulin Aspart (Novolog Insulin Pen) NOVOLOG *MILD* ALGORITHM WITH MEALS BEDTIME SC Last administered on 01/31/19at 11:51; Admin Dose 1 UNIT; Start 01/28/19 at 18:00 Miscellaneous Information 1 ea NOTE XX ; Start 01/28/19 at 12:30 Glucose (Glutose) 15 gm Q15M PRN PO DECREASED GLUCOSE; Start 01/28/19 at 12:30 Glucose (Glutose) 22.5 gm Q15M PRN PO DECREASED GLUCOSE; Start 01/28/19 at 12:30 Dextrose (D50w Syringe) 25 ml Q15M PRN IV DECREASED GLUCOSE; Start 01/28/19 at 12:30 Dextrose (D50w Syringe) 50 ml Q15M PRN IV DECREASED GLUCOSE; Start 01/28/19 at 12:30 Glucagon (Glucagen) 1 mg Q15M PRN IM DECREASED GLUCOSE; Start 01/28/19 at 12:30 Glucose (Glutose) 15 gm Q15M PRN BUCCAL DECREASED GLUCOSE; Start 01/28/19 at 12:30 Ferric Sodium Gluconate Complex 125 mg/Sodium Chloride 110 ml @ 110 mls/hr ROSI LY@1300 IVPB Last administered on 01/31/19at 12:40; Admin Dose 110 MLS/HR; Start 01/28/19 at 15:00; Stop 02/01/19 at 13:59 Cefepime HCl 50 ml @ 100 mls/hr Q12 IVPB Last administered on 01/31/19at 08:21; Admin Dose 100 MLS/HR; Start 01/28/19 at 21:00 Metoprolol Tartrate (Lopressor) 50 mg BID PO Last administered on 01/31/19at 08:22; Admin Dose 50 MG; Start 01/28/19 at 21:00 Metoprolol Tartrate (Lopressor) 5 mg Q4H PRN IV HR>110 Hold SBP<100; Start 01/28/19 at 15:30 Vancomycin HCl (Vanco Iv Per Pharmacy) VANCOMYCIN PER PHARMACY PER PROTOCOL XX ; Start 01/29/19 at 16:00 Mupirocin (Bactroban) 1 applic BID TOP Last administered on 01/31/19at 08:24; Admin Dose 1 APPLIC; Start 01/29/19 at 21:00 Vancomycin HCl 100 ml @ 100 mls/hr Q24H IVPB Last administered on 01/30/19at 16:22; Admin Dose 100 MLS/HR; Start 01/30/19 at 17:00 Miscellaneous Information (*Rx Drug Level Order Reminder*) VANCOMYCIN TROUGH AT 1600 ONCE ONCE XX ; Start 02/01/19 at 16:00; Stop 02/01/19 at 16:01 SHARDA LANDIS NP Jan 31, 2019 14:24
[2019-01-31 15:09] VITALS: BP 129/62; PULSE 68; RESP 19
[2019-01-31] MEDS: VANCOMYCIN 500 MG (PMX) 100 ML IVPB SCH (17:17)
--- NOTE | 2019-01-31 17:19 | RADRPT ---
Echocardiogram Report [facility] [id number] : [id number] (88y 8m)Study Date: 01/29/2019 2:33:26 PM Gender: FAccession #: [id number] Tech: Sujit Linton [facility] Location: [address] Ref.Physician: TELLY ERWIN Height(Cm): BSA: Weight(Kg): Quality: AdequateOrder Physician: TELLY ERWNI Account #: Procedures: Echocardiographic Report: Transthoracic echocardiogram with complete 2D, M-Mode, and doppler examination. Indications: Positive Troponin. Measurements: 2D/M Mode Doppler Measurement Value Normal Range Measurement Value Normal Range LVIDd 2D 3.2 [ 3.8 - 5.2 ] cm TAE VTI 1.3 [ 2.0 - 4.0 ] cm2 LVIDs 2D 1.9 [ 2.2 - 3.5 ] cm AV Mean Jayden 2.7 [ 70.0 - 90.0 ] cm/sec LVPWd 2D 1.2 [ 0.6 - 0.9 ] cm AV Mean PG 32.0 [ 2.0 - 4.0 ] mmHg IVSd 2D 1.9 [ 0.6 - 0.9 ] cm AV VTI 80.9 cm AoR Diam 2D 2.4 [ 2.3 - 3.1 ] cm LVOT Mean Jayden 1.1 [ 60.0 - 80.0 ] cm/sec EDV 2D 39.4 [ 46.0 - 106.0 ] ml LVOT Mean PG 6.0 [ 1.0 - 3.0 ] mmHg ESV 2D 11.5 [ 14.0 - 42.0 ] ml LVOT Peak Jayden 1.7 [ 70.0 - 110.0 ] cm/sec EF 2D 70.8 [ 54.0 - 74.0 ] percent LVOT Peak PG 11.0 [ 2.0 - 6.0 ] mmHg LA Dimen 2D 3.7 [ 2.7 - 3.8 ] cm LVOT VTI 38.3 [ 20.0 - 30.0 ] cm LVOT Diam 1.9 [ 2.1 - 2.5 ] cm MV E Peak Jayden 1.2 [ 60.0 - 130.0 ] cm/sec MV A Peak Jayden 1.7 [ 100.0 - 120.0 ] cm/sec MV E/A 0.7 [ 0.8 - 1.5 ] ratio MV Peak Jayden 1.9 [ 60.0 - 130.0 ] cm/sec MV Peak PG 15.0 [ 1.0 - 10.0 ] mmHg MV Mean Jayden 1.2 cm/sec MV Mean PG 6.0 mmHg MV Decel Time 264 [ 104 - 258 ] msec MV E/A 0.7 [ 0.8 - 1.5 ] ratio MV VTI 43.5 cm MVA VTI 2.5 cm TR Peak Jayden 2.8 [ 100.0 - 280.0 ] cm/sec TR Peak PG 30.0 mmHg RVSP 33.0 [ 10.0 - 36.0 ] mmHg Findings: Left Ventricle: Normal left ventricular systolic function. Normal left ventricular cavity size. Severe hypertrophy of the basal septum. Ejection fraction is visually estimated at 60-65 %. Tissue Doppler/Mitral Doppler indices are indeterminate in this study due to the presence of mitral stenosis. Right Ventricle: Normal right ventricular size. Normal right ventricular systolic function. Left Atrium: There is moderate enlargement of left atrium. Right Atrium: The right atrium is normal in size. Mitral Valve: Mitral valve leaflets appear moderately thickened. Mild mitral annular calcification. Moderate mitral valve regurgitation. Mild to moderate mitral stenosis. Mitral valve Max Velocity 1.92 m/sec. MaxPG 15.00 mmHg. MeanPG 6.00 mmHg. Echogenic structure is seen on the anterior mitral valve concerning for vegetation. Aortic Valve: Moderate to severe aortic stenosis. Aortic valve Max velocity 3.64 m/sec. Max PG 53.10 mmHg. Mean PG 32.00 mmHg. Aortic valve area 0.88 cm2. Aortic cusps appear moderately calcified. Trace aortic valve regurgitation. Tricuspid Valve: Normal appearance of the tricuspid valve. The estimated Peak RVSP is 33 mmHg. There is mild tricuspid regurgitation. Pericardium: Normal pericardium with no significant pericardial effusion. Aorta: Normal aortic root. IVC: Normal size and normal respiratory collapse consistent with normal right atrial pressure. Conclusions: Normal left ventricular systolic function. Normal left ventricular cavity size. Severe hypertrophy of the basal septum. Ejection fraction is visually estimated at 60-65 %. Tissue Doppler/Mitral Doppler indices are indeterminate in this study due to the presence of mitral stenosis. s. There is moderate enlargement of left atrium. Mitral valve leaflets appear moderately thickened. Mild mitral annular calcification. Moderate mitral valve regurgitation. Mild to moderate mitral stenosis. Mitral valve Max Velocity 1.92 m/sec. MaxPG 15.00 mmHg. MeanPG 6.00 mmHg. Echogenic structure is seen on the anterior mitral valve concerning for possible vegetation. Moderate to severe aortic stenosis. Aortic valve Max velocity 3.64 m/sec. Max PG 53.10 mmHg. Mean PG 32.00 mmHg. Aortic valve area 0.88 cm2. Aortic cusps appear moderately calcified. Trace aortic valve regurgitation. Normal appearance of the tricuspid valve. The estimated Peak RVSP is 33 mmHg. There is mild tricuspid regurgitation. Electronically Signed By: Telly Erwin 2019-01-31 17:18:51 PDT
[2019-01-31 19:58] VITALS: BP 132/60; PULSE 70; RESP 19
[2019-02-01] VITALS: BP 128/59; PULSE 73; RESP 19
[2019-02-01 04:00] VITALS: BP 132/63; PULSE 76; RESP 19
[2019-02-01] MEDS: LEVOTHYROXINE 75 MCG TAB PO SCH (06:58)
[2019-02-01] MEDS: PANTOPRAZOLE (EC) 40 MG TAB PO SCH (06:58)
[2019-02-01 07:13] VITALS: BP 132/61; PULSE 77; RESP 18
[2019-02-01] MEDS: INSULIN ASPART [NOVOLOG] 3 ML PEN SC SCH ×3 (07:55→17:36)
[2019-02-01] MEDS: ASPIRIN 81 MG TAB PO SCH (08:52)
[2019-02-01] MEDS: LOSARTAN 50 MG TAB PO SCH (08:53)
[2019-02-01] MEDS: AMLODIPINE 10 MG TAB PO SCH (08:53)
[2019-02-01] MEDS: METOPROLOL 50 MG TAB PO SCH ×2 (08:53→21:00)
[2019-02-01] MEDS: MUPIROCIN 2% 22 GM OINT TOP SCH ×2 (08:54→21:00)
[2019-02-01 11:03] VITALS: BP 132/60; PULSE 67
--- NOTE | 2019-02-01 12:16 | CONS ---
Assessment/Plan Assessment/Plan Hospital Course (Demo Recall) IMP: 1. Positive troponin.-minimally positive troponin here with downtrend at this time. 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 Abnormal echocardiogram with lateral T-wave inversion.- No change on serial ecg assessment 3. Hypertension, under reasonable control. 4. Tachycardia, borderline-c/w s Tach. Nl TSH. Episode of SVT to 150 ? PAFL/AT. Short run self limited. No recurrence on BB 5. Altered mental state/nephropathy. 6. Hypokalemia-improved 7. Recurrent falls. 8. Generalized weakness. 9. Shortness of breath prior to admit at the hospital-ongoing 10. Hypothyroidism. 11. anemia-ongoing but unchanged 12.DNR 14. Bacteremia-by OSH Bld cx's. Echo here with preserved EF but possible vege tation on mitral valve 15. Possible occipital CVA by Head CT Recc: -Tele -Continue to trend cardiac enzymes -Contine asa and should be considered for systemic anticoagulation but given ongoing microcytic anemia will continue asa monotherapy at this time as tolerated -continue BB at current dose and follow for recurrent SVT and if so will consider amiodarone -continue losartan/norvasc and follow reasonable BP -Contineu abx's and f/u cx data -onggoing ID eval Consultation Date/Type/Reason Admit Date/Time Jan 27, 2019 at 06:14 Initial Consult Date 01/27/19 Type of Consult Cardiology Reason for Consultation positive troponin Requesting Provider: SATHYA MOSES MD Date/Time of Note DATE: 02/01/19 TIME: 12:12 Exam/Review of Systems Vital Signs Vitals Vital Signs Date Temp Pulse Resp B/P (MAP) Pulse Ox O2 O2 Flow FiO2 Time Delivery Rate 02/01/19 98.0 67 132/60 98 Room Air 11:03 (84) 02/01/19 18 07:13 Intake and Output 01/31/19 01/31/19 02/01/19 1515:00 23:00 07:00 IntakeIntake Total 440 ml 100 ml 100 ml BalanceBalance 440 ml 100 ml 100 ml Exam Exam Review of Systems: CONSTITUTIONAL: No fevers, chills. PULMONARY: No sob CARDIOVASCULAR: No chest pain/palpitations GASTROINTESTINAL: No nausea/vomiting. GENITOURINARY: No hematuria/dysuria. MUSCULOSKELETAL: No myagias/arthalgias. PSYCHIATRIC: The patient denies depression. NEUROLOGIC: No weakness Constitutional: alert Psych: no complaints Head: normocephalic ENMT: mucosa pink and moist Neck: supple Respiratory: clear to auscultation Cardiovascular: regular rate and rhythm Gastrointestinal: soft, non-tender Musculoskeletal: muscle tone (normal) Extremities: edema (none) Neurological: other (No focal deficits) Labs Result Diagram: 01/31/19 0515 01/31/19 0515 Results 24hrs Laboratory Tests Test 01/31/19 17:16 01/31/19 20:45 02/01/19 03:16 02/01/19 07:55 Bedside Glucose 198 238 H 134 129 Test 02/01/19 11:45 Bedside Glucose 135 Medications Medications Current Medications Pantoprazole (Protonix Tab) 40 mg DAILY@06 PO Last administered on 02/01/19at 06:58; Admin Dose 40 MG; Start 01/27/19 at 08:00 Acetaminophen (Tylenol Tab) 650 mg Q6H PRN PO MILD PAIN(1-3)OR ELEVATED TEMP; Start 01/27/19 at 08:00 Bisacodyl (Dulcolax) 10 mg Q12H PRN PO CONSTIPATION; Start 01/27/19 at 08:00 Amlodipine Besylate (Norvasc) 10 mg DAILY PO Last administered on 02/01/19at 08:53; Admin Dose 10 MG; Start 01/27/19 at 09:00 Levothyroxine Sodium (Synthroid) 75 mcg DAILY@06 PO Last administered on 02/01/19at 06:58; Admin Dose 75 MCG; Start 01/28/19 at 10:00 Losartan Potassium (Cozaar) 50 mg BID PO Last administered on 02/01/19at 08:53; Admin Dose 50 MG; Start 01/27/19 at 09:00 Aspirin (Aspirin) 81 mg DAILY PO Last administered on 02/01/19at 08:52; Admin Dose 81 MG; Start 01/28/19 at 09:00 Insulin Aspart (Novolog Insulin Pen) NOVOLOG *MILD* ALGORITHM WITH MEALS BEDTIME SC Last administered on 01/31/19at 21:08; Admin Dose 2 UNIT; Start 01/28/19 at 18:00 Miscellaneous Information 1 ea NOTE XX ; Start 01/28/19 at 12:30 Glucose (Glutose) 15 gm Q15M PRN PO DECREASED GLUCOSE; Start 01/28/19 at 12:30 Glucose (Glutose) 22.5 gm Q15M PRN PO DECREASED GLUCOSE; Start 01/28/19 at 12:30 Dextrose (D50w Syringe) 25 ml Q15M PRN IV DECREASED GLUCOSE; Start 01/28/19 at 12:30 Dextrose (D50w Syringe) 50 ml Q15M PRN IV DECREASED GLUCOSE; Start 01/28/19 at 12:30 Glucagon (Glucagen) 1 mg Q15M PRN IM DECREASED GLUCOSE; Start 01/28/19 at 12:30 Glucose (Glutose) 15 gm Q15M PRN BUCCAL DECREASED GLUCOSE; Start 01/28/19 at 12:30 Ferric Sodium Gluconate Complex 125 mg/Sodium Chloride 110 ml @ 110 mls/hr DAILY@1300 IVPB Last administered on 01/31/19at 12:40; Admin Dose 110 MLS/HR; Start 01/28/19 at 15:00; Stop 02/01/19 at 13:59 Metoprolol Tartrate (Lopressor) 50 mg BID PO Last administered on 02/01/19at 08:53; Admin Dose 50 MG; Start 01/28/19 at 21:00 Metoprolol Tartrate (Lopressor) 5 mg Q4H PRN IV HR>110 Hold SBP<100; Start 01/28/19 at 15:30 Vancomycin HCl (Vanco Iv Per Pharmacy) VANCOMYCIN PER PHARMACY PER PROTOCOL XX ; Start 01/29/19 at 16:00 Mupirocin (Bactroban) 1 applic BID TOP Last administered on 02/01/19at 08:54; Admin Dose 1 APPLIC; Start 01/29/19 at 21:00 Vancomycin HCl 100 ml @ 100 mls/hr Q24H IVPB Last administered on 01/31/19at 17:17; Admin Dose 100 MLS/HR; Start 01/30/19 at 17:00 Miscellaneous Information (*Rx Drug Level Order Reminder*) VANCOMYCIN TROUGH AT 1600 ONCE ONCE XX ; Start 02/01/19 at 16:00; Stop 02/01/19 at 16:01 TELLY ROSSI 18, 2019 12:15
[2019-02-01] MEDS: SOD FERRIC GLUC COMPLX 125 MG in SOD CHLORIDE 0.9% 100 ML IVPB SCH (12:33)
--- NOTE | 2019-02-01 14:37 | CONSI ---
Assessment/Plan Assessment/Plan Assessment/Plan (Recall) 88 F c/ multiple comorbidities, who presents for evaluation of respiratory Sx.. She is additionally noted to have fallen... Head CT is most notable for a R parieto-occipital hypodensity, suspicious for evolving infarction...for which neurology is consulted.. TTE was concerning for a possible mitral valve vegetation...(though she is afebrile and has had negative blood Cx).. P: MRI brain, MRA Head/Neck, for further characterization Agree w/ asa daily for secondary stroke prevention for now Add low dose Lipitor hs.. PT/OT/ST as necessary Other medical management and supportive care per primary Will follow clinically Consultation Date/Type/Reason Admit Date/Time Jan 27, 2019 at 06:14 Type of Consult Neurology Reason for Consultation abnl head CT Requesting Provider: ALBERTO SILVER MD Date/Time of Note DATE: 02/01/19 TIME: 14:28 Hx of Present Illness This 88-year-old female presented herself to the emergency department of [facility] with the complaints of shortness of breath weakness history of falls. Patient is confused and unable to give detailed history the whole history obtained from nursing staff and the medical record. Patient reported shortness of breath for 1 day but weakness is a progressively worse for a few days. Past medical history diabetes mellitus type 2 fracture gastric ulcer dementia hypertension and status post a right hip arthroplasty or other surgery,. CBC revealed white blood count 12 hemoglobin 8 urinalysis revealed 21/50 WBC. 2+ leukocytes, BMP revealed glucose 215, sodium 126 p otassium 3.2 chloride 92 CO2 23 BUN 21 creatinine 0.7. Troponin T is 0.08 lactate 1.0 procalcitonin 2.20. BNP 2.900 patient was given 1 L of normal saline and was given 1 g of Rocephin IV and she was transferred to [facility] due to insurance purposes Medications at home Tylenol with codeine 320 aspirin 81 Coreg 12.5 twice daily docusate sodium 100 mg p.o. ferrous sulfate 325 hydrocodone acetaminophen 5/525 ibuprofen isosorbide 60 mg ER levothyroxine 75 mg p.o. a Loratadine 10 mg metformin 500 mg p.o. twice daily Neurology is consulted following an abnl head CT per HPI Objective Exam Vitals Vital Signs Date Temp Pulse Resp B/P (MAP) Pulse Ox O2 O2 Flow FiO2 Time Delivery Rate 02/01/19 98.0 67 132/60 98 Room Air 11:03 (84) 02/01/19 18 07:13 Intake and Output 01/31/19 01/31/19 02/01/19 1515:00 23:00 07:00 IntakeIntake Total 440 ml 100 ml 100 ml BalanceBalance 440 ml 100 ml 100 ml Exam PE: Gen Appearance: No Apparent Distress; thin HEENT: Normocephalic Cardiovascular: Regular rate Abdomen: Soft Extremities: Dry NE: The patient was alert, oriented to person...able to follow simple commands. Cranial nerve examination was limited by mental status. Pupils were equal and reactive to light. There was no afferent pupillary defect. Funduscopic examination was limited. Face was grossly symmetric, w/ present corneal reflexes. Tone was normal. Muscle bulk was normal. I did not see fasciculations. The patient moved her limbs symmetrically. Coordination and gait testing was limited by mental status. Arm and leg reflexes were symmetric. Villarreal's sign was absent. Plantar responses were flexor. Results Result Diagram: 01/31/19 0515 01/31/19 0515 Results 24hrs Laboratory Tests Test 01/31/19 17:16 01/31/19 20:45 02/01/19 03:16 02/01/19 07:55 Bedside Glucose 198 238 H 134 129 Test 02/01/19 11:45 Bedside Glucose 135 Past Medical History Medical History: congestive heart failure, diabetes, hypertension Home Meds Active Scripts Amoxicillin-Clavulanate K* (Augmentin*) 875 Mg Tab, 875 MG PO BID for 10 Days, TAB Prov:SATHYA MOSES MD 07/12/15 Nystatin* (Nystop* Powder) 1 Applic Powder, 1 APPLIC TOP BID for 28 Days, BOTTLE Prov:SATHYA MOSES MD 07/12/15 Losartan Potassium* (Cozaar*) 50 Mg Tab, 50 MG PO Q12 for 10 Days, TAB Prov:SATHYA MOSES MD 07/12/15 Levothyroxine Sodium* (Synthroid*) 75 Mcg Tab, 75 MCG PO DAILY@06 for 28 Days, TAB Prov:SATHYA MOSES MD 07/12/15 Amlodipine Besylate* (Norvasc*) 10 Mg Tab, 10 MG PO DAILY for 28 Days, TAB Prov:SATHYA MOSES MD 07/12/15 Medications Current Medications Pantoprazole (Protonix Tab) 40 mg DAILY@06 PO Last administered on 02/01/19at 06:58; Admin Dose 40 MG; Start 01/27/19 at 08:00 Acetaminophen (Tylenol Tab) 650 mg Q6H PRN PO MILD PAIN(1-3)OR ELEVATED TEMP; Start 01/27/19 at 08:00 Bisacodyl (Dulcolax) 10 mg Q12H PRN PO CONSTIPATION; Start 01/27/19 at 08:00 Amlodipine Besylate (Norvasc) 10 mg DAILY PO Last administered on 02/01/19at 08:53; Admin Dose 10 MG; Start 01/27/19 at 09:00 Levothyroxine Sodium (Synthroid) 75 mcg DAILY@06 PO Last administered on 02/01/19at 06:58; Admin Dose 75 MCG; Start 01/28/19 at 10:00 Losartan Potassium (Cozaar) 50 mg BID PO Last administered on 02/01/19at 08:53; Admin Dose 50 MG; Start 01/27/19 at 09:00 Aspirin (Aspirin) 81 mg DAILY PO Last administered on 02/01/19at 08:52; Admin Dose 81 MG; Start 01/28/19 at 09:00 Insulin Aspart (Novolog Insulin Pen) NOVOLOG *MILD* ALGORITHM WITH MEALS BEDTIME SC Last administered on 01/31/19at 21:08; Admin Dose 2 UNIT; Start 01/28/19 at 18:00 Miscellaneous Information 1 ea NOTE XX ; Start 01/28/19 at 12:30 Glucose (Glutose) 15 gm Q15M PRN PO DECREASED GLUCOSE; Start 01/28/19 at 12:30 Glucose (Glutose) 22.5 gm Q15M PRN PO DECREASED GLUCOSE; Start 01/28/19 at 12:30 Dextrose (D50w Syringe) 25 ml Q15M PRN IV DECREASED GLUCOSE; Start 01/28/19 at 12:30 Dextrose (D50w Syringe) 50 ml Q15M PRN IV DECREASED GLUCOSE; Start 01/28/19 at 12:30 Glucagon (Glucagen) 1 mg Q15M PRN IM DECREASED GLUCOSE; Start 01/28/19 at 12:30 Glucose (Glutose) 15 gm Q15M PRN BUCCAL DECREASED GLUCOSE; Start 01/28/19 at 12:30 Metoprolol Tartrate (Lopressor) 50 mg BID PO Last administered on 02/01/19at 08:53; Admin Dose 50 MG; Start 01/28/19 at 21:00 Metoprolol Tartrate (Lopressor) 5 mg Q4H PRN IV HR>110 Hold SBP<100; Start 01/28/19 at 15:30 Vancomycin HCl (Vanco Iv Per Pharmacy) VANCOMYCIN PER PHARMACY PER PROTOCOL XX ; Start 01/29/19 at 16:00 Mupirocin (Bactroban) 1 applic BID TOP Last administered on 02/01/19at 08:54; Admin Dose 1 APPLIC; Start 01/29/19 at 21:00 Vancomycin HCl 100 ml @ 100 mls/hr Q24H IVPB Last administered on 01/31/19at 17:17; Admin Dose 100 MLS/HR; Start 01/30/19 at 17:00 Miscellaneous Information (*Rx Drug Level Order Reminder*) VANCOMYCIN TROUGH AT 1600 ONCE ONCE XX ; Start 02/01/19 at 16:00; Stop 02/01/19 at 16:01 Allergies: Coded Allergies: No Known Allergy (Unverified , 07/07/15) Past Surgical History Past Surgical Hx: other (right hip surgery) Social History Alcohol Use: none Smoking Status: Never smoker Drug Use: none ANAT LUU Feb 01, 2019 14:37
[2019-02-01 15:56] VITALS: BP 115/56; PULSE 64; RESP 18
--- NOTE | 2019-02-01 16:29 | PN ---
Date/Time of Note Date/Time of Note DATE: 02/01/19 TIME: 16:29 Assessment/Plan VTE Prophylaxis Risk score (from Ns)>0 risk: 5 SCD applied (from Ns): Yes Pharmacological prophylaxis: NA/contraindicated Pharm contraindication: low risk/ambulating Lines/Catheters IV Catheter Type (from Nrsg): Saline Lock Urinary Cath still in place: No Assessment/Plan Hospital Course 88 y/o with 1 Positive troponin in outside hospital. Assess significance, assess for ongoing true acute coronary syndrome.-minimally positive troponin here with downtrend at this time Abnormal echocardiogram with lateral T-wave inversion.- No chest pain , trop down trending 2. Sepsis due to UTI/ gram +bacterimia from OSH, cultures positive from [facility] possible for strep sensitive to penicillin and now patient has possibility of vegetation of mitral on mitral valve questionable endocarditis 3. metabolic encephalopathy vs dementia CT of the head with the possibility of possible parietal occipital infarct 4. Cachexia. 5. Iron deficiency Anemia 6. DM type II, controlled 7. Hypothyroidism 8. Malnourishment 9. electrolyte imbalance 10. hx of fall at home 11. S.p right hip surgery 12 Hypomag 13 Hx falls with scalp swelling with scalp hematoma on this CAT scan Assessment/Plan -Change to Rocephin per ID -MRI of the brain -JT questionable -Spoke to the family about further goals of care they will discuss among family members -cw aspirin however patient has significant anemia, statin - trend troponin trending down - cw losaratn/amlodipine and MTP -CW ferrlicit - Cx NEG so far here ID consult dr Darby -GI proph. Protonix -dr Erwin cardiology consult appreciated - PT eval and mobility Result Diagram: 01/31/19 0515 01/31/19 0515 Results 24hrs Laboratory Tests Test 01/31/19 17:16 01/31/19 20:45 02/01/19 03:16 02/01/19 07:55 Bedside Glucose 198 238 H 134 129 Test 02/01/19 11:45 Bedside Glucose 135 Subjective 24 Hr Interval Summary Free Text/Dictation bld cx are positive from outside hospital with the Streptococcus mitis sensitive to penicillin [address] of the head with the scalp hematoma and possible infarct Exam/Review of Systems Exam Vitals Vital Signs Date Temp Pulse Resp B/P (MAP) Pulse Ox O2 O2 Flow FiO2 Time Delivery Rate 02/01/19 97.5 64 18 115/56 97 Room Air 15:56 (75) Intake and Output 01/31/19 01/31/19 02/01/19 1414:59 22:59 06:59 IntakeIntake Total 440 ml 100 ml 100 ml BalanceBalance 440 ml 100 ml 100 ml Exam orientted x 3, scalp, soft palpable 3/3 cm swelling, mild ttp Constitutional: alert Head: normocephalic Eyes: nl conjunctiva Neck: supple Respiratory: clear to auscultation Cardiovascular: regular rate and rhythm, other (SVT run) Genitourinary - Female: CVA tenderness; No nl adnexae, No nl external genitalia, No CMT, No uterus, No other Extremities: edema; No normal pulses, No calf tenderness, No cyanosis, No clubbing, No pitting pedal edema, No palpable cord, No tenderness, No other Neurological: confused motor strendth 4/5 bue and ble Results Results 24hrs Laboratory Tests Test 01/31/19 17:16 01/31/19 20:45 02/01/19 03:16 02/01/19 07:55 Bedside Glucose 198 238 H 134 129 Test 02/01/19 11:45 Bedside Glucose 135 Medications Medication Current Medications Pantoprazole (Protonix Tab) 40 mg DAILY@06 PO Last administered on 02/01/19at 06:58; Admin Dose 40 MG; Start 01/27/19 at 08:00 Acetaminophen (Tylenol Tab) 650 mg Q6H PRN PO MILD PAIN(1-3)OR ELEVATED TEMP; Start 01/27/19 at 08:00 Bisacodyl (Dulcolax) 10 mg Q12H PRN PO CONSTIPATION; Start 01/27/19 at 08:00 Amlodipine Besylate (Norvasc) 10 mg DAILY PO Last administered on 02/01/19at 08:53; Admin Dose 10 MG; Start 01/27/19 at 09:00 Levothyroxine Sodium (Synthroid) 75 mcg DAILY@06 PO Last administered on 02/01/19at 06:58; Admin Dose 75 MCG; Start 01/28/19 at 10:00 Losartan Potassium (Cozaar) 50 mg BID PO Last administered on 02/01/19at 08:53; Admin Dose 50 MG; Start 01/27/19 at 09:00 Aspirin (Aspirin) 81 mg DAILY PO Last administered on 02/01/19 08:52; Admin Dose 81 MG; Start 01/28/19 at 09:00 Insulin Aspart (Novolog Insulin Pen) NOVOLOG *MILD* ALGORITHM WITH MEALS BEDTIME SC Last administered on 01/31/19at 21:08; Admin Dose 2 UNIT; Start 01/28/19 at 18:00 Miscellaneous Information 1 ea NOTE XX ; Start 01/28/19 at 12:30 Glucose (Glutose) 15 gm Q15M PRN PO DECREASED GLUCOSE; Start 01/28/19 at 12:30 Glucose (Glutose) 22.5 gm Q15M PRN PO DECREASED GLUCOSE; Start 01/28/19 at 12:30 Dextrose (D50w Syringe) 25 ml Q15M PRN IV DECREASED GLUCOSE; Start 01/28/19 at 12:30 Dextrose (D50w Syringe) 50 ml Q15M PRN IV DECREASED GLUCOSE; Start 01/28/19 at 12:30 Glucagon (Glucagen) 1 mg Q15M PRN IM DECREASED GLUCOSE; Start 01/28/19 at 12:30 Glucose (Glutose) 15 gm Q15M PRN BUCCAL DECREASED GLUCOSE; Start 01/28/19 at 12:30 Metoprolol Tartrate (Lopressor) 50 mg BID PO Last administered on 02/01/19at 08:53; Admin Dose 50 MG; Start 01/28/19 at 21:00 Metoprolol Tartrate (Lopressor) 5 mg Q4H PRN IV HR>110 Hold SBP<100; Start 01/28/19 at 15:30 Mupirocin (Bactroban) 1 applic BID TOP Last administered on 02/01/19at 08:54; Admin Dose 1 APPLIC; Start 01/29/19 at 21:00 Atorvastatin Calcium (Lipitor) 10 mg HS PO ; Start 02/01/19 at 21:00 Ceftriaxone Sodium 50 ml @ 100 mls/hr Q24H IVPB ; Start 02/01/19 at 16:00 ALBERTO SILVER MD Feb 01, 2019 16:29
[2019-02-01] MEDS ORDERED: CEFTRIAXONE 2 GM/50 ML (PMX) 50 ML IVPB SCH (16:30)
[2019-02-01] MEDS: CEFTRIAXONE 1 GM/NS 50 ML IVPB SCH (16:54)
--- NOTE | 2019-02-01 17:48 | PN ---
DATE: 02/01/2019 SUBJECTIVE: No acute events overnight. The patient is awake, looks comfortable. Daughter at bedsid e. MICROBIOLOGY: Blood culture from grew strep mitis. DIAGNOSTICS: Patient had a 2D echo that showed mitral valve vegetation. ANTIMICROBIALS: She remains on IV vancomycin. PHYSICAL EXAMINATION: GENERAL: This is a fragile, chronically ill-appearing, elderly woman who is awake, in no distress. HEENT: Head atraumatic, normocephalic. NECK: Supple. CHEST: Rise symmetrical. Breath sounds diminished to bases. HEART: S1, S2. ABDOMEN: Soft, bowel sounds present. EXTREMITIES: Without cyanosis. ASSESSMENT: 1. Status post sepsis. 2. 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 4. Non-ST elevation myocardial infarction. 5. Failure to thrive. 6. Diabetes. 7. Hypertension. PLAN: The patient is stable. We are going to change antibiotics to IV Rocephin and continue for 6 w eeks. Consider PICC line placement. Discussed with ____ and Dr. Erwin. Dictated By: SHARDA LANDIS FACILITIES MAINTENANCE ASSISTANT for ANDRÉS SPEAR MD NI/NTS Conf#: [id number] DID#: [id number] CC: SATHYA MOSES MD;*End*
[2019-02-01 20:07] VITALS: BP 131/63; PULSE 78; RESP 18
[2019-02-02] MEDS: ATORVASTATIN 10 MG TAB PO SCH ×2 (00:31→21:15)
[2019-02-02] MEDS: LOSARTAN 50 MG TAB PO SCH ×3 (00:32→21:16)
[2019-02-02] MEDS: INSULIN ASPART [NOVOLOG] 3 ML PEN SC SCH ×5 (00:34→21:24)
[2019-02-02 00:35] VITALS: BP 130/68; PULSE 85; RESP 18
[2019-02-02 04:46] VITALS: BP 136/74; PULSE 76; RESP 18
[2019-02-02] MEDS: PANTOPRAZOLE (EC) 40 MG TAB PO SCH (06:29)
[2019-02-02] MEDS: LEVOTHYROXINE 75 MCG TAB PO SCH (06:29)
[2019-02-02 07:46] VITALS: BP 133/61; PULSE 76; RESP 22
[2019-02-02] MEDS: AMLODIPINE 10 MG TAB PO SCH (08:40)
[2019-02-02] MEDS: METOPROLOL 50 MG TAB PO SCH ×2 (08:40→21:15)
[2019-02-02] MEDS: ASPIRIN 81 MG TAB PO SCH (08:40)
[2019-02-02] MEDS: MUPIROCIN 2% 22 GM OINT TOP SCH ×2 (08:50→21:17)
--- NOTE | 2019-02-02 11:15 | CONS ---
Assessment/Plan Assessment/Plan Hospital Course (Demo Recall) IMP: 1. Positive troponin.-minimally positive troponin here with downtrend at this time. 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 Abnormal echocardiogram with lateral T-wave inversion.- No change on serial ecg assessment 3. Hypertension, under reasonable control. 4. Tachycardia, borderline-c/w s Tach. Nl TSH. Episode of SVT to 150 ? PAFL/AT. Short run self limited. No recurrence on BB 5. Altered mental state/nephropathy. 6. Hypokalemia-improved 7. Recurrent falls. 8. Generalized weakness. 9. Shortness of breath prior to admit at the hospital-ongoing 10. Hypothyroidism. 11. anemia-ongoing but unchanged 12.DNR 14. Bacteremia-by OSH Bld cx's. Echo here with preserved EF but possible vege tation on mitral valve concerning fro probable endocarditis 15. Possible occipital CVA by Head CT Recc: -Tele -Continue to trend cardiac enzymes -Contine asa and should be considered for systemic anticoagulation but given ongoing microcytic anemia will continue asa monotherapy at this time as margarito ated -continue BB at current dose and follow for recurrent SVT and if so will consider amiodarone -continue losartan/norvasc and follow reasonable BP -Contineu abx's and f/u cx data -onggoing ID eval with reccs for 6 weeks of CTX for treatment of endocarditis Consultation Date/Type/Reason Admit Date/Time Jan 27, 2019 at 06:14 Initial Consult Date 01/27/19 Type of Consult Cardiology Reason for Consultation positive troponin Requesting Provider: ALBERTO SILVER MD Date/Time of Note DATE: 02/02/19 TIME: 11:13 Exam/Review of Systems Vital Signs Vitals Vital Signs Date Temp Pulse Resp B/P (MAP) Pulse Ox O2 O2 Flow FiO2 Time Delivery Rate 02/02/19 97.8 76 22 133/61 96 Room Air 07:46 (85) Intake and Output 02/01/19 02/01/19 02/02/19 1515:00 23:00 07:00 IntakeIntake Total 110 ml 150 ml 200 ml BalanceBalance 110 ml 150 ml 200 ml Exam Exam Review of Systems: CONSTITUTIONAL: No fevers, chills. PULMONARY: No sob CARDIOVASCULAR: No chest pain/palpitations GASTROINTESTINAL: No nausea/vomiting. GENITOURINARY: No hematuria/dysuria. MUSCULOSKELETAL: No myagias/arthalgias. PSYCHIATRIC: The patient denies depression. NEUROLOGIC: confused Constitutional: alert Psych: no complaints Head: normocephalic ENMT: mucosa pink and moist Neck: supple, jvd (9 cm water) Respiratory: diminished breath sounds (at bases/B) Cardiovascular: regular rate and rhythm Gastrointestinal: soft, non-tender Musculoskeletal: muscle tone (normal) Extremities: edema (none) Neurological: other (No focal deficits) Labs Result Diagram: 02/02/19 0455 02/02/19 0455 Results 24hrs Laboratory Tests Test 02/01/19 11:45 02/01/19 17:28 02/02/19 00:29 02/02/19 04:55 Bedside Glucose 135 299 H 184 White Blood Count 11.6 H Red Blood Count 3.42 L Hemoglobin 8.6 L Hematocrit 28.0 L Mean Corpuscular 81.9 L Volume Mean Corpuscular 25.1 L Hemoglobin Mean Corpuscular 30.7 L Hemoglobin Concent Red Cell 17.9 H Distribution Width Platelet Count 528 H Mean Platelet Volume 9.5 Immature 1.400 H Granulocytes % Neutrophils % 76.7 Lymphocytes % 12.7 L Monocytes % 7.8 Eosinophils % 1.1 Basophils % 0.3 Nucleated Red Blood 0.0 Cells % Immature 0.160 H Granulocytes # Neutrophils # 8.9 H Lymphocytes # 1.5 Monocytes # 0.9 Eosinophils # 0.1 Basophils # 0.0 Nucleated Red Blood 0.0 Cells # Sodium Level 139 Potassium Level 3.9 Chloride Level 107 Carbon Dioxide Level 24 Anion Gap 8 Blood Urea Nitrogen 15 Creatinine 0.63 Est Glomerular Filtrat Rate mL/min Glucose Level 117 Calcium Level 9.2 Phosphorus Level 3.4 Magnesium Level 1.9 Test 02/02/19 07:38 Bedside Glucose 193 Medications Medications Current Medications Pantoprazole (Protonix Tab) 40 mg DAILY@06 PO Last administered on 02/02/19at 06:29; Admin Dose 40 MG; Start 01/27/19 at 08:00 Acetaminophen (Tylenol Tab) 650 mg Q6H PRN PO MILD PAIN(1-3)OR ELEVATED TEMP; Start 01/27/19 at 08:00 Bisacodyl (Dulcolax) 10 mg Q12H PRN PO CONSTIPATION; Start 01/27/19 at 08:00 Amlodipine Besylate (Norvasc) 10 mg DAILY PO Last administered on 02/02/19 08:40; Admin Dose 10 MG; Start 01/27/19 at 09:00 Levothyroxine Sodium (Synthroid) 75 mcg DAILY@06 PO Last administered on 02/02/19 06:29; Admin Dose 75 MCG; Start 01/28/19 at 10:00 Losartan Potassium (Cozaar) 50 mg BID PO Last administered on 02/02/19 08:40; Admin Dose 50 MG; Start 01/27/19 at 09:00 Aspirin (Aspirin) 81 mg DAILY PO Last administered on 02/02/19 08:40; Admin Dose 81 MG; Start 01/28/19 at 09:00 Insulin Aspart (Novolog Insulin Pen) NOVOLOG *MILD* ALGORITHM WITH MEALS BEDTIME SC Last administered on 02/02/19 08:00; Admin Dose 2 UNIT; Start 01/28/19 at 18:00 Miscellaneous Information 1 ea NOTE XX ; Start 01/28/19 at 12:30 Glucose (Glutose) 15 gm Q15M PRN PO DECREASED GLUCOSE; Start 01/28/19 at 12:30 Glucose (Glutose) 22.5 gm Q15M PRN PO DECREASED GLUCOSE; Start 01/28/19 at 12:30 Dextrose (D50w Syringe) 25 ml Q15M PRN IV DECREASED GLUCOSE; Start 01/28/19 at 12:30 Dextrose (D50w Syringe) 50 ml Q15M PRN IV DECREASED GLUCOSE; Start 01/28/19 at 12:30 Glucagon (Glucagen) 1 mg Q15M PRN IM DECREASED GLUCOSE; Start 01/28/19 at 12:30 Glucose (Glutose) 15 gm Q15M PRN BUCCAL DECREASED GLUCOSE; Start 01/28/19 at 12:30 Metoprolol Tartrate (Lopressor) 50 mg BID PO Last administered on 02/02/19 08:40; Admin Dose 50 MG; Start 01/28/19 at 21:00 Metoprolol Tartrate (Lopressor) 5 mg Q4H PRN IV HR>110 Hold SBP<100; Start 01/28/19 at 15:30 Mupirocin (Bactroban) 1 applic BID TOP Last administered on 02/02/19at 08:50; Admin Dose 1 APPLIC; Start 01/29/19 at 21:00 Atorvastatin Calcium (Lipitor) 10 mg HS PO Last administered on 02/02/19at 00:31; Admin Dose 10 MG; Start 02/01/19 at 21:00 Ceftriaxone Sodium 50 ml @ 100 mls/hr Q24H IVPB Last administered on 02/01/19at 16:54; Admin Dose 100 MLS/HR; Start 02/01/19 at 16:00 TELLY ROSSI Feb 02, 2019 11:15
[2019-02-02 11:54] VITALS: BP 124/60; PULSE 70; RESP 20
--- NOTE | 2019-02-02 11:54 | CONS ---
Assessment/Plan Assessment/Plan Assessment/Plan (Recall) 88 F c/ multiple comorbidities, who presents for evaluation of respiratory Sx.. She is additionally noted to have fallen... Head CT was notable for a R parieto-occipital hypodensity, suspicious for evolving infarction...for which neurology is consulted.. MRI brain confirmed an acute R parieto-occipital infarction, as well as multiple embolic appearing acute infarcts.. MRA showed a small sca aneurysm...as b/l PROGRAM DIRECTOR/MUSIC DIRECTOR stenosis. TTE was concerning for a possible mitral valve vegetation...the likely u nderlying cause. A1C 6.9, LDL 88 P: Agree w/ asa/lipitor daily for secondary stroke prevention for now Medical management per primary PT/OT/ST as necessary Will follow clinically Consultation Date/Type/Reason Admit Date/Time Jan 27, 2019 at 06:14 Type of Consult Neurology Reason for Consultation abnl head CT Requesting Provider: ALBERTO SILVER MD Date/Time of Note DATE: 02/02/19 TIME: 11:50 24 HR Interval Summary Free Text/Dictation s/p MRI brain Exam/Review of Systems Exam Vitals Vital Signs Date Temp Pulse Resp B/P (MAP) Pulse Ox O2 O2 Flow FiO2 Time Delivery Rate 02/02/19 97.8 76 22 133/61 96 Room Air 07:46 (85) Intake and Output 02/01/19 02/01/19 02/02/19 1515:00 23:00 07:00 IntakeIntake Total 110 ml 150 ml 200 ml BalanceBalance 110 ml 150 ml 200 ml Results Result Diagram: 02/02/19 0455 02/02/19 0455 Results 24hrs Laboratory Tests Test 02/01/19 17:28 02/02/19 00:29 02/02/19 04:55 02/02/19 07:38 Bedside Glucose 299 H 184 193 White Blood Count 11.6 H Red Blood Count 3.42 L Hemoglobin 8.6 L Hematocrit 28.0 L Mean Corpuscular 81.9 L Volume Mean Corpuscular 25.1 L Hemoglobin Mean Corpuscular 30.7 L Hemoglobin Concent Red Cell 17.9 H Distribution Width Platelet Count 528 H Mean Platelet Volume 9.5 Immature 1.400 H Granulocytes % Neutrophils % 76.7 Lymphocytes % 12.7 L Monocytes % 7.8 Eosinophils % 1.1 Basophils % 0.3 Nucleated Red Blood 0.0 Cells % Immature 0.160 H Granulocytes # Neutrophils # 8.9 H Lymphocytes # 1.5 Monocytes # 0.9 Eosinophils # 0.1 Basophils # 0.0 Nucleated Red Blood 0.0 Cells # Sodium Level 139 Potassium Level 3.9 Chloride Level 107 Carbon Dioxide Level 24 Anion Gap 8 Blood Urea Nitrogen 15 Creatinine 0.63 Est Glomerular Filtrat Rate mL/min Glucose Level 117 Calcium Level 9.2 Phosphorus Level 3.4 Magnesium Level 1.9 Test 02/02/19 11:36 Bedside Glucose 144 Medications Medication Current Medications Pantoprazole (Protonix Tab) 40 mg DAILY@06 PO Last administered on 02/02/19 06:29; Admin Dose 40 MG; Start 01/27/19 at 08:00 Acetaminophen (Tylenol Tab) 650 mg Q6H PRN PO MILD PAIN(1-3)OR ELEVATED TEMP; Start 01/27/19 at 08:00 Bisacodyl (Dulcolax) 10 mg Q12H PRN PO CONSTIPATION; Start 01/27/19 at 08:00 Amlodipine Besylate (Norvasc) 10 mg DAILY PO Last administered on 02/02/19at 08:40; Admin Dose 10 MG; Start 01/27/19 at 09:00 Levothyroxine Sodium (Synthroid) 75 mcg DAILY@06 PO Last administered on 06:29; Admin Dose 75 MCG; Start 01/28/19 at 10:00 Losartan Potassium (Cozaar) 50 mg BID PO Last administered on 02/02/19at 08:40; Admin Dose 50 MG; Start 01/27/19 at 09:00 Aspirin (Aspirin) 81 mg DAILY PO Last administered on 02/02/19at 08:40; Admin Dose 81 MG; Start 01/28/19 at 09:00 Insulin Aspart (Novolog Insulin Pen) NOVOLOG *MILD* ALGORITHM WITH MEALS BEDTIME SC Last administered on 02/02/19at 08:00; Admin Dose 2 UNIT; Start 01/28/19 at 18:00 Miscellaneous Information 1 ea NOTE XX ; Start 01/28/19 at 12:30 Glucose (Glutose) 15 gm Q15M PRN PO DECREASED GLUCOSE; Start 01/28/19 at 12:30 Glucose (Glutose) 22.5 gm Q15M PRN PO DECREASED GLUCOSE; Start 01/28/19 at 12:30 Dextrose (D50w Syringe) 25 ml Q15M PRN IV DECREASED GLUCOSE; Start 01/28/19 at 12:30 Dextrose (D50w Syringe) 50 ml Q15M PRN IV DECREASED GLUCOSE; Start 01/28/19 at 12:30 Glucagon (Glucagen) 1 mg Q15M PRN IM DECREASED GLUCOSE; Start 01/28/19 at 12:30 Glucose (Glutose) 15 gm Q15M PRN BUCCAL DECREASED GLUCOSE; Start 01/28/19 at 12:30 Metoprolol Tartrate (Lopressor) 50 mg BID PO Last administered on 02/02/19at 08:40; Admin Dose 50 MG; Start 01/28/19 at 21:00 Metoprolol Tartrate (Lopressor) 5 mg Q4H PRN IV HR>110 Hold SBP<100; Start 01/28/19 at 15:30 Mupirocin (Bactroban) 1 applic BID TOP Last administered on 02/02/19at 08:50; Admin Dose 1 APPLIC; Start 01/29/19 at 21:00 Atorvastatin Calcium (Lipitor) 10 mg HS PO Last administered on 02/02/19at 00:31; Admin Dose 10 MG; Start 02/01/19 at 21:00 Ceftriaxone Sodium 50 ml @ 100 mls/hr Q24H IVPB Last administered on 02/01/19at 16:54; Admin Dose 100 MLS/HR; Start 02/01/19 at 16:00 ANAT LUU Feb 02, 2019 11:54
--- NOTE | 2019-02-02 13:52 | PN ---
BAY HAN 02/02/19 1352: Date/Time of Note Date/Time of Note DATE: 02/02/19 TIME: 13:51 Assessment/Plan VTE Prophylaxis [place] [facility] risk: 7 SCD applied ([place] [facility] Yes Pharmacological prophylaxis: NA/contraindicated Pharm contraindication: anticoag not tolerated Lines/Catheters IV [facility] [place] Urinary Cath still in place: No Assessment/Plan Hospital Course 1. SOB, troponin positive in [place] 0.08 and now VPH 0.329 2. Urosepsis 3. metabolic encephalopathy vs dementia 4. Cachexia. 5. Iron deficiency Anemia 6. DM type II, controlled 7. Hypothyroidism 8. Malnourishment 9. electrolyte imbalance 10. hx of fall at home 11. S.p right hip surgery 12. Hypomagnesemia 13 Hx falls with scalp swelling with scalp hematoma on this CAT scan. MRI/MRA brain :Acute infarct in the right occipital lobe, mildly extending into the posterior right parietal lobe. Multiple, additional, sub centimeter acute infarcts throughout the supratentorial and infratentorial brain, as well as the mid brain. Findings suggest an embolic etiology, given multiple vascular territories involved. Background parenchymal volume loss with chronic microvascular ischemic disease. Midline scalp hematoma again noted. No acute hemorrhage. Right mastoid effusion. 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 Consider CTA to further evaluate. Diffuse narrowing of the bilateral P2 and P3 arteries, left greater than right. No flow-limiting stenosis identified in the brain vasculature. No aneurysm or flow-limiting stenosis identified in the neck vasculature. 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 Protonix -dr Erwin cardiology consult appreciated - PT eval and mobility Result Diagram: 02/02/19 0457 02/02/19 5853 Results 24hrs Laboratory Tests Test 02/01/19 17:28 02/02/19 00:29 02/02/19 04:55 02/02/19 07:38 Bedside Glucose 299 H 184 193 White Blood Count 11.6 H Red Blood Count 3.42 L Hemoglobin 8.6 L Hematocrit 28.0 L Mean Corpuscular 81.9 L Volume Mean Corpuscular 25.1 L Hemoglobin Mean Corpuscular 30.7 L Hemoglobin Concent Red Cell 17.9 H Distribution Width Platelet Count 528 H Mean Platelet Volume 9.5 Immature 1.400 H Granulocytes % Neutrophils % 76.7 Lymphocytes % 12.7 L Monocytes % 7.8 Eosinophils % 1.1 Basophils % 0.3 Nucleated Red Blood 0.0 Cells % Immature 0.160 H Granulocytes # Neutrophils # 8.9 H Lymphocytes # 1.5 Monocytes # 0.9 Eosinophils # 0.1 Basophils # 0.0 Nucleated Red Blood 0.0 Cells # Sodium Level 139 Potassium Level 3.9 Chloride Level 107 Carbon Dioxide Level 24 Anion Gap 8 Blood Urea Nitrogen 15 Creatinine 0.63 Est Glomerular Filtrat Rate mL/min Glucose Level 117 Calcium Level 9.2 Phosphorus Level 3.4 Magnesium Level 1.9 Test 02/02/19 11:36 Bedside Glucose 144 Subjective 24 Hr Interval Summary Free Text/Dictation does not feel well Respiratory: shortness of breath; No no complaints, No pain, No cough, No pleuritic pain, No sputum, No wheezing, No other Cardiovascular: chest pain; No no complaints, No edema, No lightheadedness, No orthopenea, No palpitations, No paroxysmal nocturnal dyspnea, No other Gastrointestinal: constipation; No no complaints, No pain, No blood, No decreased appetite, No diarrhea, No flatus, No nausea, No passing stool, No vomiting, No other Neurologic: no complaints, confusion, dizziness, focal-weakness, headache, syncope, seizure, other Psychological: anxiety; No no complaints, No nl mood/affect, No confusion, No depression, No suicid al, No other Exam/Review of Systems Exam Vitals Vital Signs Date Temp Pulse Resp B/P (MAP) Pulse Ox O2 O2 Flow FiO2 Time Delivery Rate 02/02/19 97.6 70 20 124/60 96 11:54 (81) 02/02/19 Room Air 07:46 Intake and Output 02/01/19 02/01/19 02/02/19 1515:00 23:00 07:00 IntakeIntake Total 110 ml 150 ml 200 ml BalanceBalance 110 ml 150 ml 200 ml Constitutional: alert, oriented (x2) Head: normocephalic Eyes: nl conjunctiva Neck: supple Cardiovascular: regular rate and rhythm, other (on monitor S and PVC) Gastrointestinal: soft Extremities: normal pulses, edema; No calf tenderness, No cyanosis, No clubbing, No pitting pedal edema, No palpable cord, No tenderness, No other Neurological: other (pt is hardly move all extremities, does not follow commnds) Results Result Diagram: 02/02/19 0455 02/02/19 0455 Results 24hrs Laboratory Tests Test 02/01/19 17:28 02/02/19 00:29 02/02/19 04:55 02/02/19 07:38 Bedside Glucose 299 H 184 193 White Blood Count 11.6 H Red Blood Count 3.42 L Hemoglobin 8.6 L Hematocrit 28.0 L Mean Corpuscular 81.9 L Volume Mean Corpuscular 25.1 L Hemoglobin Mean Corpuscular 30.7 L Hemoglobin Concent Red Cell 17.9 H Distribution Width Platelet Count 528 H Mean Platelet Volume 9.5 Immature 1.400 H Granulocytes % Neutrophils % 76.7 Lymphocytes % 12.7 L Monocytes % 7.8 Eosinophils % 1.1 Basophils % 0.3 Nucleated Red Blood 0.0 Cells % Immature 0.160 H Granulocytes # Neutrophils # 8.9 H Lymphocytes # 1.5 Monocytes # 0.9 Eosinophils # 0.1 Basophils # 0.0 Nucleated Red Blood 0.0 Cells # Sodium Level 139 Potassium Level 3.9 Chloride Level 107 Carbon Dioxide Level 24 Anion Gap 8 Blood Urea Nitrogen 15 Creatinine 0.63 Est Glomerular Filtrat Rate mL/min Glucose Level 117 Calcium Level 9.2 Phosphorus Level 3.4 Magnesium Level 1.9 Test 02/02/19 11:36 Bedside Glucose 144 Medications Medication Current Medications Pantoprazole (Protonix Tab) 40 mg DAILY@06 PO Last administered on 02/02/19at 06:29; Admin Dose 40 MG; Start 01/27/19 at 08:00 Acetaminophen (Tylenol Tab) 650 mg Q6H PRN PO MILD PAIN(1-3)OR ELEVATED TEMP; Start 01/27/19 at 08:00 Bisacodyl (Dulcolax) 10 mg Q12H PRN PO CONSTIPATION; Start 01/27/19 at 08:00 Amlodipine Besylate (Norvasc) 10 mg DAILY PO Last administered on 02/02/19 08:40; Admin Dose 10 MG; Start 01/27/19 at 09:00 Levothyroxine Sodium (Synthroid) 75 mcg DAILY@06 PO Last administered on 02/02/19 06:29; Admin Dose 75 MCG; Start 01/28/19 at 10:00 Losartan Potassium (Cozaar) 50 mg BID PO Last administered on 02/02/19 08:40; Admin Dose 50 MG; Start 01/27/19 at 09:00 Aspirin (Aspirin) 81 mg DAILY PO Last administered on 02/02/19 08:40; Admin Dose 81 MG; Start 01/28/19 at 09:00 Insulin Aspart (Novolog Insulin Pen) NOVOLOG *MILD* ALGORITHM WITH MEALS BEDTIME SC Last administered on 02/02/19 11:48; Admin Dose 1 UNIT; Start 01/28/19 at 18:00 Miscellaneous Information 1 ea NOTE XX ; Start 01/28/19 at 12:30 Glucose (Glutose) 15 gm Q15M PRN PO DECREASED GLUCOSE; Start 01/28/19 at 12:30 Glucose (Glutose) 22.5 gm Q15M PRN PO DECREASED GLUCOSE; Start 01/28/19 at 12:30 Dextrose (D50w Syringe) 25 ml Q15M PRN IV DECREASED GLUCOSE; Start 01/28/19 at 12:30 Dextrose (D50w Syringe) 50 ml Q15M PRN IV DECREASED GLUCOSE; Start 01/28/19 at 12:30 Glucagon (Glucagen) 1 mg Q15M PRN IM DECREASED GLUCOSE; Start 01/28/19 at 12:30 Glucose (Glutose) 15 gm Q15M PRN BUCCAL DECREASED GLUCOSE; Start 01/28/19 at 12:30 Metoprolol Tartrate (Lopressor) 50 mg BID PO Last administered on 02/02/19 08:40; Admin Dose 50 MG; Start 01/28/19 at 21:00 Metoprolol Tartrate (Lopressor) 5 mg Q4H PRN IV HR>110 Hold SBP<100; Start 01/28/19 at 15:30 Mupirocin (Bactroban) 1 applic BID TOP Last administered on 02/02/19 08:50; Admin Dose 1 APPLIC; Start 01/29/19 at 21:00 Atorvastatin Calcium (Lipitor) 10 mg HS PO Last administered on 02/02/19at 00:31; Admin Dose 10 MG; Start 02/01/19 at 21:00 Ceftriaxone Sodium 50 ml @ 100 mls/hr Q24H IVPB Last administered on 02/01/19at 16:54; Admin Dose 100 MLS/HR; Start 02/01/19 at 16:00 ALBERTO SILVER MD 02/02/19 1646: Assessment/Plan Assessment/Plan Assessment/Plan PT SEEN AND EXAMINED DISCUSSED WITH DAUGTHER MULTIPLE EMBOLIC STROKE WITH ENDOCARDITIS IV ROCEPHIN X 6 WEEKS ? ANTICOAGUALTION WILL DISCUSS SINCE HAS HX FALLS AND ANEMIA Result Diagram: 02/02/19 0455 02/02/19 0455 BAY HAN Feb 02, 2019 13:52 ALBERTO SILVER MD Feb 02, 2019 16:46
--- NOTE | 2019-02-02 14:26 | CONS ---
Assessment/Plan Assessment/Plan Hospital Course (Demo Recall) 1200 patient is awake family at bedside no fevers overnight WBC today 11.6 neutrophils 76.7 BUN 15 creatinine 0.63 MICROBIOLOGY: Blood culture from [facility] grew strep mitis. DIAGNOSTICS: 2D echo shows mitral valve vegetation. ANTIMICROBIALS: Rocephin PHYSICAL EXAMINATION: GENERAL: This is a fragile, chronically ill-appearing, elderly woman who is awake, in no distress. HEENT: Head atraumatic, normocephalic. NECK: Supple. CHEST: Rise symmetrical. Breath sounds diminished to bases. HEART: S1, S2. ABDOMEN: Soft, bowel sounds present. EXTREMITIES: Without cyanosis. ASSESSMENT: 1. Status post sepsis. 2. 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 4. Non-ST elevation myocardial infarction. 5. Failure to thrive. 6. Diabetes. 7. Hypertension. PLAN: The patient is stable. Continue present care, anticipate discharge on IV Rocephin for 6 weeks, she is not a surgical candidate. Follow cardiology recommendations Consultation Date/Type/Reason Admit Date/Time Jan 27, 2019 at 06:14 Initial Consult Date Type of Consult id Requesting Provider: ALBERTO SILVER MD Date/Time of Note DATE: 02/02/19 TIME: 14:21 Exam/Review of Systems Exam Vitals Vital Signs Date Temp Pulse Resp B/P (MAP) Pulse Ox O2 O2 Flow FiO2 Time Delivery Rate 02/02/19 97.6 70 20 124/60 96 11:54 (81) 02/02/19 Room Air 07:46 Intake and Output 02/01/19 02/01/19 02/02/19 1515:00 23:00 07:00 IntakeIntake Total 110 ml 150 ml 200 ml BalanceBalance 110 ml 150 ml 200 ml Results Result Diagram: 02/02/19 0455 02/02/19 0455 Results 24hrs Laboratory Tests Test 02/01/19 17:28 02/02/19 00:29 02/02/19 04:55 02/02/19 07:38 Bedside Glucose 299 H 184 193 White Blood Count 11.6 H Red Blood Count 3.42 L Hemoglobin 8.6 L Hematocrit 28.0 L Mean Corpuscular 81.9 L Volume Mean Corpuscular 25.1 L Hemoglobin Mean Corpuscular 30.7 L Hemoglobin Concent Red Cell 17.9 H Distribution Width Platelet Count 528 H Mean Platelet Volume 9.5 Immature 1.400 H Granulocytes % Neutrophils % 76.7 Lymphocytes % 12.7 L Monocytes % 7.8 Eosinophils % 1.1 Basophils % 0.3 Nucleated Red Blood 0.0 Cells % Immature 0.160 H Granulocytes # Neutrophils # 8.9 H Lymphocytes # 1.5 Monocytes # 0.9 Eosinophils # 0.1 Basophils # 0.0 Nucleated Red Blood 0.0 Cells # Sodium Level 139 Potassium Level 3.9 Chloride Level 107 Carbon Dioxide Level 24 Anion Gap 8 Blood Urea Nitrogen 15 Creatinine 0.63 Est Glomerular Filtrat Rate mL/min Glucose Level 117 Calcium Level 9.2 Phosphorus Level 3.4 Magnesium Level 1.9 Test 02/02/19 11:36 Bedside Glucose 144 Medications Medication Current Medications Pantoprazole (Protonix Tab) 40 mg DAILY@06 PO Last administered on 02/02/19 06:29; Admin Dose 40 MG; Start 01/27/19 at 08:00 Acetaminophen (Tylenol Tab) 650 mg Q6H PRN PO MILD PAIN(1-3)OR ELEVATED TEMP; Start 01/27/19 at 08:00 Bisacodyl (Dulcolax) 10 mg Q12H PRN PO CONSTIPATION; Start 01/27/19 at 08:00 Amlodipine Besylate (Norvasc) 10 mg DAILY PO Last administered on 02/02/19 08:40; Admin Dose 10 MG; Start 01/27/19 at 09:00 Levothyroxine Sodium (Synthroid) 75 mcg DAILY@06 PO Last administered on 02/02/19 06:29; Admin Dose 75 MCG; Start 01/28/19 at 10:00 Losartan Potassium (Cozaar) 50 mg BID PO Last administered on 02/02/19 08:40; Admin Dose 50 MG; Start 01/27/19 at 09:00 Aspirin (Aspirin) 81 mg DAILY PO Last administered on 02/02/19 08:40; Admin Dose 81 MG; Start 01/28/19 at 09:00 Insulin Aspart (Novolog Insulin Pen) NOVOLOG *MILD* ALGORITHM WITH MEALS BEDTIME SC Last administered on 02/02/19at 11:48; Admin Dose 1 UNIT; Start 01/28/19 at 18:00 Miscellaneous Information 1 ea NOTE XX ; Start 01/28/19 at 12:30 Glucose (Glutose) 15 gm Q15M PRN PO DECREASED GLUCOSE; Start 01/28/19 at 12:30 Glucose (Glutose) 22.5 gm Q15M PRN PO DECREASED GLUCOSE; Start 01/28/19 at 12:30 Dextrose (D50w Syringe) 25 ml Q15M PRN IV DECREASED GLUCOSE; Start 01/28/19 at 12:30 Dextrose (D50w Syringe) 50 ml Q15M PRN IV DECREASED GLUCOSE; Start 01/28/19 at 12:30 Glucagon (Glucagen) 1 mg Q15M PRN IM DECREASED GLUCOSE; Start 01/28/19 at 12:30 Glucose (Glutose) 15 gm Q15M PRN BUCCAL DECREASED GLUCOSE; Start 01/28/19 at 12:30 Metoprolol Tartrate (Lopressor) 50 mg BID PO Last administered on 02/02/19at 08:40; Admin Dose 50 MG; Start 01/28/19 at 21:00 Metoprolol Tartrate (Lopressor) 5 mg Q4H PRN IV HR>110 Hold SBP<100; Start 01/28/19 at 15:30 Mupirocin (Bactroban) 1 applic BID TOP Last administered on 02/02/19at 08:50; Admin Dose 1 APPLIC; Start 01/29/19 at 21:00 Atorvastatin Calcium (Lipitor) 10 mg HS PO Last administered on 02/02/19at 00:31; Admin Dose 10 MG; Start 02/01/19 at 21:00 Ceftriaxone Sodium 50 ml @ 100 mls/hr Q24H IVPB Last administered on 02/01/19at 16:54; Admin Dose 100 MLS/HR; Start 02/01/19 at 16:00 SHARDA LANDIS NP Feb 02, 2019 14:26
[2019-02-02] MEDS: CEFTRIAXONE 1 GM/NS 50 ML IVPB SCH (15:21)
[2019-02-02 16:07] VITALS: BP 132/63; PULSE 79; RESP 22
[2019-02-02 20:00] VITALS: BP 146/64; PULSE 85; PULSE 86; RESP 20
[2019-02-03] VITALS (7 sets, daily range): BP systolic 123–153; BP diastolic 60–68; PULSE 59–76; RESP 16–20
[2019-02-03] MEDS: PANTOPRAZOLE (EC) 40 MG TAB PO SCH (05:40)
[2019-02-03] MEDS: LEVOTHYROXINE 75 MCG TAB PO SCH (05:41)
[2019-02-03] MEDS: INSULIN ASPART [NOVOLOG] 3 ML PEN SC SCH ×4 (08:50→21:00)
[2019-02-03] MEDS: METOPROLOL 50 MG TAB PO SCH ×2 (09:44→21:17)
[2019-02-03] MEDS: MUPIROCIN 2% 22 GM OINT TOP SCH ×2 (09:44→21:18)
[2019-02-03] MEDS: AMLODIPINE 10 MG TAB PO SCH (09:44)
[2019-02-03] MEDS: LOSARTAN 50 MG TAB PO SCH ×2 (09:44→21:17)
[2019-02-03] MEDS: ASPIRIN 81 MG TAB PO SCH (09:44)
--- NOTE | 2019-02-03 11:25 | CONS ---
Consult Date/Type/Reason Admit Date/Time Jan 27, 2019 at 06:14 Initial Consult Date Requesting Provider: ALBERTO SILVER MD Date/Time of Note DATE: 02/03/19 TIME: 11:23 Subjective NO acute events - BP in good range - not in CHF by exam, will monitor clinically now. ROS: No fever, no chills, no nausea, no vomiting, no diarrhea/constipation - per nurse Objective Vitals Vital Signs Date Temp Pulse Resp B/P (MAP) Pulse Ox O2 O2 Flow FiO2 Time Delivery Rate 02/03/19 98.0 74 17 145/65 95 08:10 (91) 02/02/19 Room Air 16:07 Intake and Output 02/02/19 02/02/19 02/03/19 1515:00 23:00 07:00 IntakeIntake Total 970 ml BalanceBalance 970 ml Exam General: WN/WD/NAD, AOx comfortable HEENT: Unicetric/atraumatic/EOMI (does not follow commands) NECK: JVD elevated, no thyromegaly Lymph: no lymphadenopathy HEART: regular with no S3, II/ systolic murmur at apex, PMI L LUNGS: Coarse sounds ABD: soft, NT, ND, +BS : Intact Neuro: non focal SKIN: chronic changes EXT: trace edema Results/Medications Result Diagram: 02/02/1945402/02/19454 Results 24 hrs Laboratory Tests Test 02/02/19 11:36 02/02/19 18:16 02/02/19 21:13 02/03/19 03:14 Bedside Glucose 144 172 188 144 Test 02/03/19 08:43 Bedside Glucose 143 Home Meds Active Scripts Amoxicillin-Clavulanate K* (Augmentin*) 875 Mg Tab, 875 MG PO BID for 10 Days, TAB Prov:SATHYA MOSES MD 07/12/15 Nystatin* (Nystop* Powder) 1 Applic Powder, 1 APPLIC TOP BID for 28 Days, BOTTLE Prov:SATHYA MOSES MD 07/12/15 Losartan Potassium* (Cozaar*) 50 Mg Tab, 50 MG PO Q12 for 10 Days, TAB Prov:SATHYA MOSES MD 07/12/15 Levothyroxine Sodium* (Synthroid*) 75 Mcg Tab, 75 MCG PO DAILY@06 for 28 Days, TAB Prov:SATHYA MOSES MD 07/12/15 Amlodipine Besylate* (Norvasc*) 10 Mg Tab, 10 MG PO DAILY for 28 Days, TAB Prov:SATHYA MOSES MD 07/12/15 Medications Current Medications Pantoprazole (Protonix Tab) 40 mg DAILY@06 PO Last administered on 02/03/19at 05:40; Admin Dose 40 MG; Start 01/27/19 at 08:00 Acetaminophen (Tylenol Tab) 650 mg Q6H PRN PO MILD PAIN(1-3)OR ELEVATED TEMP; Start 01/27/19 at 08:00 Bisacodyl (Dulcolax) 10 mg Q12H PRN PO CONSTIPATION; Start 01/27/19 at 08:00 Amlodipine Besylate (Norvasc) 10 mg DAILY PO Last administered on 02/03/19at 09:44; Admin Dose 10 MG; Start 01/27/19 at 09:00 Levothyroxine Sodium (Synthroid) 75 mcg DAILY@06 PO Last administered on 02/03/19at 05:41; Admin Dose 75 MCG; Start 01/28/19 at 10:00 Losartan Potassium (Cozaar) 50 mg BID PO Last administered on 02/03/19at 09:44; Admin Dose 50 MG; Start 01/27/19 at 09:00 Aspirin (Aspirin) 81 mg DAILY PO Last administered on 02/03/19at 09:44; Admin Dose 81 MG; Start 01/28/19 at 09:00 Insulin Aspart (Novolog Insulin Pen) NOVOLOG *MILD* ALGORITHM WITH MEALS BEDTIME SC Last administered on 02/03/19at 08:50; Admin Dose 1 UNIT; Start 01/28/19 at 18:00 Miscellaneous Information 1 ea NOTE XX ; Start 01/28/19 at 12:30 Glucose (Glutose) 15 gm Q15M PRN PO DECREASED GLUCOSE; Start 01/28/19 at 12:30 Glucose (Glutose) 22.5 gm Q15M PRN PO DECREASED GLUCOSE; Start 01/28/19 at 12:30 Dextrose (D50w Syringe) 25 ml Q15M PRN IV DECREASED GLUCOSE; Start 01/28/19 at 12:30 Dextrose (D50w Syringe) 50 ml Q15M PRN IV DECREASED GLUCOSE; Start 01/28/19 at 12:30 Glucagon (Glucagen) 1 mg Q15M PRN IM DECREASED GLUCOSE; Start 01/28/19 at 12:30 Glucose (Glutose) 15 gm Q15M PRN BUCCAL DECREASED GLUCOSE; Start 01/28/19 at 12:30 Metoprolol Tartrate (Lopressor) 50 mg BID PO Last administered on 02/03/19at 09:44; Admin Dose 50 MG; Start 01/28/19 at 21:00 Metoprolol Tartrate (Lopressor) 5 mg Q4H PRN IV HR>110 Hold SBP<100; Start 01/28/19 at 15:30 Mupirocin (Bactroban) 1 applic BID TOP Last administered on 02/03/19 09:44; Admin Dose 1 APPLIC; Start 01/29/19 at 21:00 Atorvastatin Calcium (Lipitor) 10 mg HS PO Last administered on 02/02/19 21:15; Admin Dose 10 MG; Start 02/01/19 at 21:00 Ceftriaxone Sodium 50 ml @ 100 mls/hr Q24H IVPB Last administered on 02/02/19 15:21; Admin Dose 100 MLS/HR; Start 02/01/19 at 16:00 Assessment/Plan Hospital Course (Demo Recall) 1. Positive troponin in outside hospital. Assess significance, assess for ongoing true acute coronary syndrome.-minimally positive troponin here with downtrend at this time - no intervention planned no. NO CP now - no intervention planned. 2. Abnormal echocardiogram with lateral T-wave inversion.- No change on serial ecg assessment - con't med rx. 3. Hypertension, under reasonable control.- better with therapy. 4. Tachycardia, borderline-c/w s Tach. Nl TSH. Episode of SVT to 150 ? PAFL/AT. Short run self limited - now in sinus. Rate controlled. 5. Altered mental state/nephropathy. 6. Hypokalemia-improved - treated to goal. 7. Recurrent falls- now in bed. 8. Generalized weakness. 9. Shortness of breath prior to admit at the hospital-ongoing 10. Hypothyroidism. 11. anemia-ongoing but unchanged - Hg 8.6 now. Treated. 12.DNR THERESA HAYNES MD Feb 03, 2019 11:25
--- NOTE | 2019-02-03 13:28 | PN ---
Date/Time of Note Date/Time of Note DATE: 02/03/19 TIME: 13:18 Assessment/Plan VTE Prophylaxis Risk score (from Ns)>0 risk: 7 SCD applied (from Ns): Yes Pharmacological prophylaxis: NA/contraindicated Pharm contraindication: hemorrhagic infarct Lines/Catheters [facility] [place] [facility] Urinary Cath still in place: No Assessment/Plan Hospital Course 1. SOB, troponin positive in [place] [address] [facility] 0.329. Cardiology is following 2. Urosepsis from outside facility. Latest UA is negative 3. metabolic encephalopathy vs dementia. Patient is forgetful confused to place. 4. Cachexia. Used twice a day Ensure 5. Iron deficiency anemia 6. DM type II, controlled 7. Hypothyroidism 8. Malnourishment 9. electrolyte imbalance 10. hx of fall at home 11. S.p right hip surgery 12. Hypomagnesemia 13 Hx falls with scalp swelling with scalp hematoma on this CAT scan. No more swelling of the head. Patient only confused with place. MRI/MRA brain :Acute infarct in the right occipital lobe, mildly extending into the posterior right parietal lobe. Multiple, additional, sub centimeter acute infarcts throughout the supratentorial and infratentorial brain, as well as the mid brain. Findings suggest an embolic etiology, given multiple vascular territories involved. Background parenchymal volume loss with chronic microvascular ischemic disease. Midline scalp hematoma again noted. No acute hemorrhage. Right mastoid effusion. 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 Consider CTA to further evaluate. Diffuse narrowing of the bilateral P2 and P3 arteries, left greater than right. No flow-limiting stenosis identified in the brain vasculature. No aneurysm or flow-limiting stenosis identified in the neck vasculature. Assessment/Plan -Keep telemetry -Continue contact isolation -Yesterday Dr. 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 Protonix -dr Erwin cardiology consult appreciated - PT eval and mobility was done for 2 days patient has intolerance refused to continue Result Diagram: 02/02/19 0455 02/02/19 0455 Results 24hrs Laboratory Tests Test 02/02/19 18:16 02/02/19 21:13 02/03/19 03:14 02/03/19 08:43 Bedside Glucose 172 188 144 143 Test 02/03/19 12:12 Bedside Glucose 119 Exam/Review of Systems Exam Vitals Vital Signs Date Temp Pulse Resp B/P (MAP) Pulse Ox O2 O2 Flow FiO2 Time Delivery Rate 02/03/19 98.0 59 19 123/60 96 11:58 (81) 02/02/19 Room Air 16:07 Intake and Output 02/02/19 02/02/19 02/03/19 1515:00 23:00 07:00 IntakeIntake Total 970 ml BalanceBalance 970 ml Exam No acute distress, no events overnight. Eyes: anicteric, EOM's intact, no pallor Nose: no rhinorrhea Neck: supple, no thyromegaly, bilateral carotid bruits Lungs: clear bilaterally, decreased. CVS: regular rate and rhythm, no murmurs Abdomen: soft, bowel sounds present, no hepatosplenomegally, no masses, no rebound or guarding. Rectal: differed. External genitalia: no lesions. No Batista Extremities: no edema, DP palpable, decreased Neuro: alert and oriented x 2, confused to place Gait: Unable to walk without assistance. Total assist Motor strength: 2+/2+, symmetrical Sensory exam is unable to perform patient does not understand the purpose of it. Does not follow commands, say she is not comfortable. Deep tendon reflexes: normal, [place] reflexes are absent bilaterally Skin: With multiple lesions, scratches. Pale Results Results 24hrs Laboratory Tests Test 02/02/19 18:16 02/02/19 21:13 02/03/19 03:14 02/03/19 08:43 Bedside Glucose 172 188 144 143 Test 02/03/19 12:12 Bedside Glucose 119 Medications Medication Current Medications Pantoprazole (Protonix Tab) 40 mg DAILY@06 PO Last administered on 02/03/19at 05:40; Admin Dose 40 MG; Start 01/27/19 at 08:00 Acetaminophen (Tylenol Tab) 650 mg Q6H PRN PO MILD PAIN(1-3)OR ELEVATED TEMP; Start 01/27/19 at 08:00 Bisacodyl (Dulcolax) 10 mg Q12H PRN PO CONSTIPATION; Start 01/27/19 at 08:00 Amlodipine Besylate (Norvasc) 10 mg DAILY PO Last administered on 02/03/19 09:44; Admin Dose 10 MG; Start 01/27/19 at 09:00 Levothyroxine Sodium (Synthroid) 75 mcg DAILY@06 PO Last administered on 02/03/19at 05:41; Admin Dose 75 MCG; Start 01/28/19 at 10:00 Losartan Potassium (Cozaar) 50 mg BID PO Last administered on 02/03/19at 09:44; Admin Dose 50 MG; Start 01/27/19 at 09:00 Aspirin (Aspirin) 81 mg DAILY PO Last administered on 02/03/19at 09:44; Admin Dose 81 MG; Start 01/28/19 at 09:00 Insulin Aspart (Novolog Insulin Pen) NOVOLOG *MILD* ALGORITHM WITH MEALS BEDTIME SC Last administered on 02/03/19at 08:50; Admin Dose 1 UNIT; Start 01/28/19 at 18:00 Miscellaneous Information 1 ea NOTE XX ; Start 01/28/19 at 12:30 Glucose (Glutose) 15 gm Q15M PRN PO DECREASED GLUCOSE; Start 01/28/19 at 12:30 Glucose (Glutose) 22.5 gm Q15M PRN PO DECREASED GLUCOSE; Start 01/28/19 at 12:30 Dextrose (D50w Syringe) 25 ml Q15M PRN IV DECREASED GLUCOSE; Start 01/28/19 at 12:30 Dextrose (D50w Syringe) 50 ml Q15M PRN IV DECREASED GLUCOSE; Start 01/28/19 at 12:30 Glucagon (Glucagen) 1 mg Q15M PRN IM DECREASED GLUCOSE; Start 01/28/19 at 12:30 Glucose (Glutose) 15 gm Q15M PRN BUCCAL DECREASED GLUCOSE; Start 01/28/19 at 12:30 Metoprolol Tartrate (Lopressor) 50 mg BID PO Last administered on 02/03/19at 09:44; Admin Dose 50 MG; Start 01/28/19 at 21:00 Metoprolol Tartrate (Lopressor) 5 mg Q4H PRN IV HR>110 Hold SBP<100; Start 01/28/19 at 15:30 Mupirocin (Bactroban) 1 applic BID TOP Last administered on 02/03/19at 09:44; Ad min Dose 1 APPLIC; Start 01/29/19 at 21:00 Atorvastatin Calcium (Lipitor) 10 mg HS PO Last administered on 02/02/19at 21:15; Admin Dose 10 MG; Start 02/01/19 at 21:00 Ceftriaxone Sodium 50 ml @ 100 mls/hr Q24H IVPB Last administered on 02/02/19at 15:21; Admin Dose 100 MLS/HR; Start 02/01/19 at 16:00 BAY HAN Feb 03, 2019 13:28
--- NOTE | 2019-02-03 13:53 | CONS ---
Assessment/Plan Assessment/Plan Hospital Course (Demo Recall) ID PROGRESS NOTE CURRENT ABX: DAY # 13 => Ceftriaxone 24H INTERVAL SUMMARY * Elderly F, resting comfortable in bed on room air without distress, no new issues, VSS DIAGNOSTIC IMAGING * 01/29/19 CXR: Elevation of the right hemidiaphragm with mild bibasilar opacities, likely atelectasis. Mild cardiomegaly. Aortic atherosclerosis. * DIAGNOSTICS: 2D echo shows mitral valve vegetation. MICRO * BCx (-) * (+)MRSA Nares * MICROBIOLOGY: Blood culture from [facility] grew strep mitis. PHYSICAL EXAMINATION: GENERAL: VSS, NAD HEENT: AT, NC, NECK: Supple, CHEST: Rise symmetrical HEART: Pulse RRR ABDOMEN: Benign EXTREMITIES: Warm, dry SKIN: No rash, no diaphoresis ID ASSESSMENT 88 yo F admit with: 1. Status post sepsis. 2. 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 4. Non-ST elevation myocardial infarction. 5. Failure to thrive. 6. Diabetes. 7. Hypertension. (+)MRSA Nares -> Bactroban ABX ALLERGIES: KNDA INVASIVES: PIV CURRENT ABX: DAY # 13 => Ceftriaxone ID RECOMMENDATIONS/PLAN: 1. Continue Ceftriaxone to complete 42 days = NOVEMBER DC on ABX when cleared by primary . Consultation Date/Type/Reason Admit Date/Time Jan 27, 2019 at 06:14 Initial Consult Date Requesting Provider: ALBERTO SILVER MD Date/Time of Note DATE: 02/03/19 TIME: 13:53 Exam/Review of Systems Exam Vitals Vital Signs Date Temp Pulse Resp B/P (MAP) Pulse Ox O2 O2 Flow FiO2 Time Delivery Rate 02/03/19 98.0 59 19 123/60 96 11:58 (81) 02/02/19 Room Air 16:07 Intake and Output 02/02/19 02/02/19 02/03/19 1515:00 23:00 07:00 IntakeIntake Total 970 ml BalanceBalance 970 ml Results Result Diagram: 02/02/19 0455 02/02/19 0455 Results 24hrs Laboratory Tests Test 02/02/19 18:16 02/02/19 21:13 02/03/19 03:14 02/03/19 08:43 Bedside Glucose 172 188 144 143 Test 02/03/19 12:12 Bedside Glucose 119 Medications Medication Current Medications Pantoprazole (Protonix Tab) 40 mg DAILY@06 PO Last administered on 02/03/19at 05:40; Admin Dose 40 MG; Start 01/27/19 at 08:00 Acetaminophen (Tylenol Tab) 650 mg Q6H PRN PO MILD PAIN(1-3)OR ELEVATED TEMP; Start 01/27/19 at 08:00 Bisacodyl (Dulcolax) 10 mg Q12H PRN PO CONSTIPATION; Start 01/27/19 at 08:00 Amlodipine Besylate (Norvasc) 10 mg DAILY PO Last administered on 02/03/19at 09:44; Admin Dose 10 MG; Start 01/27/19 at 09:00 Levothyroxine Sodium (Synthroid) 75 mcg DAILY@06 PO Last administered on 02/03/19at 05:41; Admin Dose 75 MCG; Start 01/28/19 at 10:00 Losartan Potassium (Cozaar) 50 mg BID PO Last administered on 02/03/19at 09:44; Admin Dose 50 MG; Start 01/27/19 at 09:00 Aspirin (Aspirin) 81 mg DAILY PO Last administered on 02/03/19at 09:44; Admin Dose 81 MG; Start 01/28/19 at 09:00 Insulin Aspart (Novolog Insulin Pen) NOVOLOG *MILD* ALGORITHM WITH MEALS BEDTIME SC Last administered on 02/03/19at 08:50; Admin Dose 1 UNIT; Start 01/28/19 at 18:00 Miscellaneous Information 1 ea NOTE XX ; Start 01/28/19 at 12:30 Glucose (Glutose) 15 gm Q15M PRN PO DECREASED GLUCOSE; Start 01/28/19 at 12:30 Glucose (Glutose) 22.5 gm Q15M PRN PO DECREASED GLUCOSE; Start 01/28/19 at 12:30 Dextrose (D50w Syringe) 25 ml Q15M PRN IV DECREASED GLUCOSE; Start 01/28/19 at 12:30 Dextrose (D50w Syringe) 50 ml Q15M PRN IV DECREASED GLUCOSE; Start 01/28/19 at 12:30 Glucagon (Glucagen) 1 mg Q15M PRN IM DECREASED GLUCOSE; Start 01/28/19 at 12:30 Glucose (Glutose) 15 gm Q15M PRN BUCCAL DECREASED GLUCOSE; Start 01/28/19 at 12:30 Metoprolol Tartrate (Lopressor) 50 mg BID PO Last administered on 02/03/19at 09:44; Admin Dose 50 MG; Start 01/28/19 at 21:00 Metoprolol Tartrate (Lopressor) 5 mg Q4H PRN IV HR>110 Hold SBP<100; Start 01/28/19 at 15:30 Mupirocin (Bactroban) 1 applic BID TOP Last administered on 02/03/19at 09:44; Admin Dose 1 APPLIC; Start 01/29/19 at 21:00 Atorvastatin Calcium (Lipitor) 10 mg HS PO Last administered on 02/02/19at 21:15; Admin Dose 10 MG; Start 02/01/19 at 21:00 Ceftriaxone Sodium 50 ml @ 100 mls/hr Q24H IVPB Last administered on 02/02/19at 15:21; Admin Dose 100 MLS/HR; Start 02/01/19 at 16:00 LÓPEZ BONNER NP Feb 03, 2019 13:53
[2019-02-03] MEDS: CEFTRIAXONE 1 GM/NS 50 ML IVPB SCH (17:55)
[2019-02-03] MEDS: ATORVASTATIN 10 MG TAB PO SCH (21:16)
[2019-02-04 04:36] VITALS: BP 153/70; PULSE 67; RESP 18
[2019-02-04] MEDS: PANTOPRAZOLE (EC) 40 MG TAB PO SCH (05:43)
[2019-02-04] MEDS: LEVOTHYROXINE 75 MCG TAB PO SCH (05:43)
[2019-02-04 07:35] VITALS: BP 155/68; PULSE 71; RESP 18
[2019-02-04] MEDS: INSULIN ASPART [NOVOLOG] 3 ML PEN SC SCH ×4 (08:00→21:48)
[2019-02-04] MEDS: AMLODIPINE 10 MG TAB PO SCH (09:32)
[2019-02-04] MEDS: METOPROLOL 50 MG TAB PO SCH ×2 (09:32→21:36)
[2019-02-04] MEDS: LOSARTAN 50 MG TAB PO SCH ×2 (09:32→21:37)
[2019-02-04] MEDS: ASPIRIN 81 MG TAB PO SCH (09:32)
[2019-02-04] MEDS: MUPIROCIN 2% 22 GM OINT TOP SCH ×2 (09:33→21:38)
--- NOTE | 2019-02-04 11:03 | CONS ---
Consult Date/Type/Reason Admit Date/Time Jan 27, 2019 at 06:14 Initial Consult Date Requesting Provider: ALBERTO SILVER MD Date/Time of Note DATE: 02/04/19 TIME: 11:01 Subjective NO acute events - pt more alert today - denies CP - BP on hogh side -add RX now. ROS: No fever, no chills, no nausea, no vomiting, no diarrhea/constipation No recent weight changes No chest pain, no PND, no orthopnea mild SOB No dizziness, blurred vision No thirst, no heat or cold intolerance Objective Vitals Vital Signs Date Temp Pulse Resp B/P (MAP) Pulse Ox O2 O2 Flow FiO2 Time Delivery Rate 02/04/19 97.8 71 18 155/68 96 07:35 (97) 02/02/19 Room Air 16:07 Intake and Output 02/03/19 02/03/19 02/04/19 1515:00 23:00 07:00 IntakeIntake Total 120 ml 220 ml BalanceBalance 120 ml 220 ml Exam General: WN/WD/NAD, AOx 2-3 more alert HEENT: Unicetric/atraumatic/EOMI (follows commands) NECK: JVD elevated, no thyromegaly Lymph: no lymphadenopathy HEART: regular with no S3, II/ systolic murmur at apex, PMI L LUNGS: Coarse sounds ABD: soft, NT, ND, +BS : Intact Neuro: non focal SKIN: chronic changes EXT: trace edema Results/Medications Result Diagram: 02/04/198 02/04/198 Results 24 hrs Laboratory Tests Test 02/03/19 12:12 02/03/19 17:46 02/03/19 21:15 02/04/19 04:48 Bedside Glucose 119 163 146 White Blood Count 12.0 H Red Blood Count 3.31 L Hemoglobin 8.4 L Hematocrit 27.3 L Mean Corpuscular 82.5 Volume Mean Corpuscular 25.4 L Hemoglobin Mean Corpuscular 30.8 L Hemoglobin Concent Red Cell 18.9 H Distribution Width Platelet Count 583 H Mean Platelet Volume 10.1 Immature 1.900 H Granulocytes % Neutrophils % 73.7 Lymphocytes % 15.2 Monocytes % 6.8 Eosinophils % 1.8 Basophils % 0.6 Nucleated Red Blood 0.0 Cells % Immature 0.230 H Granulocytes # Neutrophils # 8.8 H Lymphocytes # 1.8 Monocytes # 0.8 Eosinophils # 0.2 Basophils # 0.1 Nucleated Red Blood 0.0 Cells # Sodium Level 137 Potassium Level 3.8 Chloride Level 102 Carbon Dioxide Level 26 Anion Gap 9 Blood Urea Nitrogen 14 Creatinine 0.60 Est Glomerular Filtrat Rate mL/min Glucose Level 118 Calcium Level 9.4 Test 02/04/19 08:29 Bedside Glucose 138 Home Meds Active Scripts Amoxicillin-Clavulanate K* (Augmentin*) 875 Mg Tab, 875 MG PO BID for 10 Days, TAB Prov:SATHYA MOSES MD 07/12/15 Nystatin* (Nystop* Powder) 1 Applic Powder, 1 APPLIC TOP BID for 28 Days, BOTTLE Prov:SATHYA MOSES MD 07/12/15 Losartan Potassium* (Cozaar*) 50 Mg Tab, 50 MG PO Q12 for 10 Days, TAB Prov:SATHYA MOSES MD 07/12/15 Levothyroxine Sodium* (Synthroid*) 75 Mcg Tab, 75 MCG PO DAILY@06 for 28 Days, TAB Prov:SATHYA MOSES MD 07/12/15 Amlodipine Besylate* (Norvasc*) 10 Mg Tab, 10 MG PO DAILY for 28 Days, TAB Prov:SATHYA MOSES MD 07/12/15 Medications Current Medications Pantoprazole (Protonix Tab) 40 mg DAILY@06 PO Last administered on 02/04/19at 05:43; Admin Dose 40 MG; Start 01/27/19 at 08:00 Acetaminophen (Tylenol Tab) 650 mg Q6H PRN PO MILD PAIN(1-3)OR ELEVATED TEMP; Start 01/27/19 at 08:00 Bisacodyl (Dulcolax) 10 mg Q12H PRN PO CONSTIPATION; Start 01/27/19 at 08:00 Amlodipine Besylate (Norvasc) 10 mg DAILY PO Last administered on 02/04/19at 09:32; Admin Dose 10 MG; Start 01/27/19 at 09:00 Levothyroxine Sodium (Synthroid) 75 mcg DAILY@06 PO Last administered on 02/04/19at 05:43; Admin Dose 75 MCG; Start 01/28/19 at 10:00 Losartan Potassium (Cozaar) 50 mg BID PO Last administered on 02/04/19at 09:32; Admin Dose 50 MG; Start 01/27/19 at 09:00 Aspirin (Aspirin) 81 mg DAILY PO Last administered on 02/04/19at 09:32; Admin Dose 81 MG; Start 01/28/19 at 09:00 Insulin Aspart (Novolog Insulin Pen) NOVOLOG *MILD* ALGORITHM WITH MEALS BEDTIME SC Last administered on 02/03/19at 17:58; Admin Dose 1 UNIT; Start 01/28/19 at 18:00 Miscellaneous Information 1 ea NOTE XX ; Start 01/28/19 at 12:30 Glucose (Glutose) 15 gm Q15M PRN PO DECREASED GLUCOSE; Start 01/28/19 at 12:30 Glucose (Glutose) 22.5 gm Q15M PRN PO DECREASED GLUCOSE; Start 01/28/19 at 12:30 Dextrose (D50w Syringe) 25 ml Q15M PRN IV DECREASED GLUCOSE; Start 01/28/19 at 12:30 Dextrose (D50w Syringe) 50 ml Q15M PRN IV DECREASED GLUCOSE; Start 01/28/19 at 12:30 Glucagon (Glucagen) 1 mg Q15M PRN IM DECREASED GLUCOSE; Start 01/28/19 at 12:30 Glucose (Glutose) 15 gm Q15M PRN BUCCAL DECREASED GLUCOSE; Start 01/28/19 at 12:30 Metoprolol Tartrate (Lopressor) 50 mg BID PO Last administered on 02/04/19at 09:32; Admin Dose 50 MG; Start 01/28/19 at 21:00 Metoprolol Tartrate (Lopressor) 5 mg Q4H PRN IV HR>110 Hold SBP<100; Start 01/28/19 at 15:30 Mupirocin (Bactroban) 1 applic BID TOP Last administered on 02/04/19at 09:33; Admin Dose 1 APPLIC; Start 01/29/19 at 21:00 Atorvastatin Calcium (Lipitor) 10 mg HS PO Last administered on 02/03/19at 21:16; Admin Dose 10 MG; Start 02/01/19 at 21:00 Ceftriaxone Sodium 50 ml @ 100 mls/hr Q24H IVPB Last administered on 02/03/19at 17:55; Admin Dose 100 MLS/HR; Start 02/01/19 at 16:00 Assessment/Plan Hospital Course (Demo Recall) 1. Positive troponin in outside hospital. Assess significance, assess for ongoing true acute coronary syndrome.-minimally positive troponin here with downtrend at this time - no intervention planned no. NO CP now - no intervention planned. On meds. 2. Abnormal echocardiogram with lateral T-wave inversion.- No change on serial ecg assessment - con't med rx. 3. Hypertension, under reasonable control.- better with therapy. Will add more Rx today, 4. Tachycardia, borderline-c/w s Tach. Nl TSH. Episode of SVT to 150 ? PAFL/AT. Short run self limited - now in sinus. Rate controlled. Sinus now. 5. Altered mental state/nephropathy. 6. Hypokalemia-improved - treated to goal. 7. Recurrent falls- now in bed. 8. Generalized weakness. 9. Shortness of breath prior to admit at the hospital-ongoing 10. Hypothyroidism. 11. anemia-ongoing but unchanged - Hg 8.4 now. Treated. NO acute bleeding. 12.DNR THERESA HAYNES MD Feb 04, 2019 11:03
[2019-02-04 11:26] VITALS: BP 124/60; PULSE 60; RESP 18
[2019-02-04] MEDS: LOSARTAN 25 MG TAB PO SCH ×2 (11:30→21:00)
--- NOTE | 2019-02-04 14:01 | CONS ---
Assessment/Plan Assessment/Plan Hospital Course (Demo Recall) ID PROGRESS NOTE CURRENT ABX: DAY # 14 => Ceftriaxone 02/04/19 0448 02/04/198 24H INTERVAL SUMMARY * No fevers, WBC up slightly * Elderly F, resting comfortable in bed on room air without distress, no new issues, VSS DIAGNOSTIC IMAGING * 01/29/19 CXR: Elevation of the right hemidiaphragm with mild bibasilar opacities, likely atelectasis. Mild cardiomegaly. Aortic atherosclerosis. * DIAGNOSTICS: 2D echo shows mitral valve vegetation. MICRO * BCx (-) * (+)MRSA Nares * MICROBIOLOGY: Blood culture from [facility] grew strep mitis. PHYSICAL EXAMINATION: GENERAL: VSS, NAD HEENT: AT, NC, NECK: Supple, CHEST: Rise symmetrical HEART: Pulse RRR ABDOMEN: Benign EXTREMITIES: Warm, dry SKIN: No rash, no diaphoresis ID ASSESSMENT 88 yo F admit with: 1. Status post sepsis. 2. 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 4. Non-ST elevation myocardial infarction. 5. Failure to thrive. 6. Diabetes. 7. Hypertension. (+)MRSA Nares -> Bactroban ABX ALLERGIES: KNDA INVASIVES: PIV CURRENT ABX: DAY # 14 => Ceftriaxone + DOxy #1 ID RECOMMENDATIONS/PLAN: 1. Continue Ceftriaxone to complete 42 days = MAY DC on ABX when cleared by primary 2. Doxycycline 100mg po BID x 7 days -- attempt decolonize MRSA nares . Consultation Date/Type/Reason Admit Date/Time Jan 27, 2019 at 06:14 Initial Consult Date Requesting Provider: ALBERTO SILVER MD Date/Time of Note DATE: 02/04/19 TIME: 13:56 Exam/Review of Systems Exam Vitals Vital Signs Date Temp Pulse Resp B/P (MAP) Pulse Ox O2 O2 Flow FiO2 Time Delivery Rate 02/04/19 98.0 60 18 124/60 99 11:26 (81) 02/02/19 Room Air 16:07 Intake and Output 02/03/19 02/03/19 02/04/19 1515:00 23:00 07:00 IntakeIntake Total 120 ml 220 ml BalanceBalance 120 ml 220 ml Results Result Diagram: 02/04/1902/04/19 0448 Results 24hrs Laboratory Tests Test 02/03/19 17:46 02/03/19 21:15 02/04/19 04:48 02/04/19 08:29 Bedside Glucose 163 146 138 White Blood Count 12.0 H Red Blood Count 3.31 L Hemoglobin 8.4 L Hematocrit 27.3 L Mean Corpuscular 82.5 Volume Mean Corpuscular 25.4 L Hemoglobin Mean Corpuscular 30.8 L Hemoglobin Concent Red Cell 18.9 H Distribution Width Platelet Count 583 H Mean Platelet Volume 10.1 Immature 1.900 H Granulocytes % Neutrophils % 73.7 Lymphocytes % 15.2 Monocytes % 6.8 Eosinophils % 1.8 Basophils % 0.6 Nucleated Red Blood 0.0 Cells % Immature 0.230 H Granulocytes # Neutrophils # 8.8 H Lymphocytes # 1.8 Monocytes # 0.8 Eosinophils # 0.2 Basophils # 0.1 Nucleated Red Blood 0.0 Cells # Sodium Level 137 Potassium Level 3.8 Chloride Level 102 Carbon Dioxide Level 26 Anion Gap 9 Blood Urea Nitrogen 14 Creatinine 0.60 Est Glomerular Filtrat Rate mL/min Glucose Level 118 Calcium Level 9.4 Test 02/04/19 11:35 Bedside Glucose 198 Medications Medication Current Medications Pantoprazole (Protonix Tab) 40 mg DAILY@06 PO Last administered on 02/04/19at 05:43; Admin Dose 40 MG; Start 01/27/19 at 08:00 Acetaminophen (Tylenol Tab) 650 mg Q6H PRN PO MILD PAIN(1-3)OR ELEVATED TEMP; Start 01/27/19 at 08:00 Bisacodyl (Dulcolax) 10 mg Q12H PRN PO CONSTIPATION; Start 01/27/19 at 08:00 Amlodipine Besylate (Norvasc) 10 mg DAILY PO Last administered on 02/04/19at 09:32; Admin Dose 10 MG; Start 01/27/19 at 09:00 Levothyroxine Sodium (Synthroid) 75 mcg DAILY@06 PO Last administered on 02/04/19at 05:43; Admin Dose 75 MCG; Start 01/28/19 at 10:00 Losartan Potassium (Cozaar) 50 mg BID PO Last administered on 02/04/19at 09:32; Admin Dose 50 MG; Start 01/27/19 at 09:00 Aspirin (Aspirin) 81 mg DAILY PO Last administered on 02/04/19 09:32; Admin Dose 81 MG; Start 01/28/19 at 09:00 Insulin Aspart (Novolog Insulin Pen) NOVOLOG *MILD* ALGORITHM WITH MEALS BEDTIME SC Last administered on 02/04/19at 13:00; Admin Dose 2 UNIT; Start 01/28/19 at 18:00 Miscellaneous Information 1 ea NOTE XX ; Start 01/28/19 at 12:30 Glucose (Glutose) 15 gm Q15M PRN PO DECREASED GLUCOSE; Start 01/28/19 at 12:30 Glucose (Glutose) 22.5 gm Q15M PRN PO DECREASED GLUCOSE; Start 01/28/19 at 12:30 Dextrose (D50w Syringe) 25 ml Q15M PRN IV DECREASED GLUCOSE; Start 01/28/19 at 12:30 Dextrose (D50w Syringe) 50 ml Q15M PRN IV DECREASED GLUCOSE; Start 01/28/19 at 12:30 Glucagon (Glucagen) 1 mg Q15M PRN IM DECREASED GLUCOSE; Start 01/28/19 at 12:30 Glucose (Glutose) 15 gm Q15M PRN BUCCAL DECREASED GLUCOSE; Start 01/28/19 at 12:30 Metoprolol Tartrate (Lopressor) 50 mg BID PO Last administered on 02/04/19at 09:32; Admin Dose 50 MG; Start 01/28/19 at 21:00 Metoprolol Tartrate (Lopressor) 5 mg Q4H PRN IV HR>110 Hold SBP<100; Start 01/28/19 at 15:30 Mupirocin (Bactroban) 1 applic BID TOP Last administered on 02/04/19at 09:33; Admin Dose 1 APPLIC; Start 01/29/19 at 21:00 Atorvastatin Calcium (Lipitor) 10 mg HS PO Last administered on 02/03/19at 21:16; Admin Dose 10 MG; Start 02/01/19 at 21:00 Ceftriaxone Sodium 50 ml @ 100 mls/hr Q24H IVPB Last administered on 02/03/19at 17:55; Admin Dose 100 MLS/HR; Start 02/01/19 at 16:00 Losartan Potassium (Cozaar) 25 mg BID PO ; Start 02/04/19 at 11:30 LÓPEZ BONNER NP Feb 04, 2019 14:01
--- NOTE | 2019-02-04 14:04 | PN ---
Date/Time of Note Date/Time of Note DATE: 02/04/19 TIME: 13:56 Assessment/Plan VTE Prophylaxis Risk score (from Ns)>0 risk: 6 SCD applied (from Ns): Yes Pharmacological prophylaxis: NA/contraindicated Pharm contraindication: hemorrhagic infarct Lines/Catheters IV [facility]from [facility] [place] Urinary Cath still in place: No Assessment/Plan Hospital Course 1. SOB, resolved. Troponin positive in [place] 0.08 and now [facility] 0.329. Cardiology is following 2. Urosepsis from outside facility. Blood culture from outside facility is positive. Latest blood culture are negative for 5 days, latest UA is negative 3. metabolic encephalopathy vs dementia. Patient is forgetful confused to place. 4. Cachexia. Used twice a day Ensure by mouth 5. Iron deficiency anemia 6. DM type II, controlled 7. Hypothyroidism 8. Malnourishment 9. electrolyte imbalance 10. hx of fall at home 11. S.p right hip surgery 12. Hypomagnesemia 13 Hx falls with scalp swelling with scalp hematoma on this CAT scan. No more swelling of the head. Patient only confused with place. MRI/MRA brain :Acute infarct in the right occipital lobe, mildly extending i nto the posterior right parietal lobe. Multiple, additional, sub centimeter acute infarcts throughout the supratentorial and infratentorial brain, as well as the mid brain. Findings suggest an embolic etiology, given multiple vascular territories involved. Background parenchymal volume loss with chronic microvascular ischemic disease. Midline scalp hematoma again noted. No acute hemorrhage. Right mastoid effusion. 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 Consider CTA to further evaluate. Diffuse narrowing of the bilateral P2 and P3 arteries, left greater than right. No flow-limiting stenosis identified in the brain vasculature. No aneurysm or flow-limiting stenosis identified in the neck vasculature. 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 Protonix -dr Erwin cardiology consult appreciated Result Diagram: 02/04/198 02/04/19 0448 Results 24hrs Laboratory Tests Test 02/03/19 17:46 02/03/19 21:15 02/04/19 04:48 02/04/19 08:29 Bedside Glucose 163 146 138 White Blood Count 12.0 H Red Blood Count 3.31 L Hemoglobin 8.4 L Hematocrit 27.3 L Mean Corpuscular 82.5 Volume Mean Corpuscular 25.4 L Hemoglobin Mean Corpuscular 30.8 L Hemoglobin Concent Red Cell 18.9 H Distribution Width Platelet Count 583 H Mean Platelet Volume 10.1 Immature 1.900 H Granulocytes % Neutrophils % 73.7 Lymphocytes % 15.2 Monocytes % 6.8 Eosinophils % 1.8 Basophils % 0.6 Nucleated Red Blood 0.0 Cells % Immature 0.230 H Granulocytes # Neutrophils # 8.8 H Lymphocytes # 1.8 Monocytes # 0.8 Eosinophils # 0.2 Basophils # 0.1 Nucleated Red Blood 0.0 Cells # Sodium Level 137 Potassium Level 3.8 Chloride Level 102 Carbon Dioxide Level 26 Anion Gap 9 Blood Urea Nitrogen 14 Creatinine 0.60 Est Glomerular Filtrat Rate mL/min Glucose Level 118 Calcium Level 9.4 Test 02/04/19 11:35 Bedside Glucose 198 Subjective 24 Hr Interval Summary Free Text/Dictation Constitutional: No fever, cough or chills. Feels tired EYE: No eye disease. No visual problems. CARDIOVASCULAR: No chest pain. No Palpitation. RESPIRATORY: No breathing problems. No COPD or disease of respiration. GASTROINTESTINAL: No Nausea. No Vomiting. No constipation. Endocrine: No excessive thirst MUSCULO-SKELETAL: feels weak NEUROLOGICAL: Alert oriented in person, place, forgetful. there is a communication barrier. Did not walk for a few days. No Headache, Exam/Review of Systems Exam Vitals Vital Signs Date Temp Pulse Resp B/P (MAP) Pulse Ox O2 O2 Flow FiO2 Time Delivery Rate 02/04/19 98.0 60 18 124/60 99 11:26 (81) 02/02/19 Room Air 16:07 Intake and Output 02/03/19 02/03/19 02/04/19 1414:59 22:59 06:59 IntakeIntake Total 120 ml 220 ml BalanceBalance 120 ml 220 ml Exam No acute distress, no events overnight. thin, frail Eyes: anicteric, EOM's intact, no pallor Nose: no rhinorrhea Neck: supple, no thyromegaly, no carotid bruits Lungs: clear bilaterally, decreased. CVS: regular rate and rhythm, no murmurs Abdomen: soft, bowel sounds present, no hepatosplenomegally, no masses, no rebound or guarding. Rectal: differed. External genitalia: no lesions. No Batista Extremities: no edema, DP palpable Neuro: alert and oriented x 3 Gait: Unable to assess patient is in the bed Motor strength: 3+/3 symmetrical + Reported as normal, sensory exam is normal Deep tendon reflexes: normal, Babisky reflexes are absent bilaterally Skin: no lesions, ecchymoses, sun damaged spots No Batista Results Results 24hrs Laboratory Tests Test 02/03/19 17:46 02/03/19 21:15 02/04/19 04:48 02/04/19 08:29 Bedside Glucose 163 146 138 White Blood Count 12.0 H Red Blood Count 3.31 L Hemoglobin 8.4 L Hematocrit 27.3 L Mean Corpuscular 82.5 Volume Mean Corpuscular 25.4 L Hemoglobin Mean Corpuscular 30.8 L Hemoglobin Concent Red Cell 18.9 H Distribution Width Platelet Count 583 H Mean Platelet Volume 10.1 Immature 1.900 H Granulocytes % Neutrophils % 73.7 Lymphocytes % 15.2 Monocytes % 6.8 Eosinophils % 1.8 Basophils % 0.6 Nucleated Red Blood 0.0 Cells % Immature 0.230 H Granulocytes # Neutrophils # 8.8 H Lymphocytes # 1.8 Monocytes # 0.8 Eosinophils # 0.2 Basophils # 0.1 Nucleated Red Blood 0.0 Cells # Sodium Level 137 Potassium Level 3.8 Chloride Level 102 Carbon Dioxide Level 26 Anion Gap 9 Blood Urea Nitrogen 14 Creatinine 0.60 Est Glomerular Filtrat Rate mL/min Glucose Level 118 Calcium Level 9.4 Test 02/04/19 11:35 Bedside Glucose 198 Medications Medication Current Medications Pantoprazole (Protonix Tab) 40 mg DAILY@06 PO Last administered on 02/04/19at 05:43; Admin Dose 40 MG; Start 01/27/19 at 08:00 Acetaminophen (Tylenol Tab) 650 mg Q6H PRN PO MILD PAIN(1-3)OR ELEVATED TEMP; Start 01/27/19 at 08:00 Bisacodyl (Dulcolax) 10 mg Q12H PRN PO CONSTIPATION; Start 01/27/19 at 08:00 Amlodipine Besylate (Norvasc) 10 mg DAILY PO Last administered on 02/04/19at 09:32; Admin Dose 10 MG; Start 01/27/19 at 09:00 Levothyroxine Sodium (Synthroid) 75 mcg DAILY@06 PO Last administered on 02/04/19at 05:43; Admin Dose 75 MCG; Start 01/28/19 at 10:00 Losartan Potassium (Cozaar) 50 mg BID PO Last administered on 02/04/19at 09:32; Admin Dose 50 MG; Start 01/27/19 at 09:00 Aspirin (Aspirin) 81 mg DAILY PO Last administered on 02/04/19 09:32; Admin Dose 81 MG; Start 01/28/19 at 09:00 Insulin Aspart (Novolog Insulin Pen) NOVOLOG *MILD* ALGORITHM WITH MEALS BEDTIME SC Last administered on 02/04/19at 13:00; Admin Dose 2 UNIT; Start 01/28/19 at 18:00 Miscellaneous Information 1 ea NOTE XX ; Start 01/28/19 at 12:30 Glucose (Glutose) 15 gm Q15M PRN PO DECREASED GLUCOSE; Start 01/28/19 at 12:30 Glucose (Glutose) 22.5 gm Q15M PRN PO DECREASED GLUCOSE; Start 01/28/19 at 12 :30 Dextrose (D50w Syringe) 25 ml Q15M PRN IV DECREASED GLUCOSE; Start 01/28/19 at 12:30 Dextrose (D50w Syringe) 50 ml Q15M PRN IV DECREASED GLUCOSE; Start 01/28/19 at 12:30 Glucagon (Glucagen) 1 mg Q15M PRN IM DECREASED GLUCOSE; Start 01/28/19 at 12:30 Glucose (Glutose) 15 gm Q15M PRN BUCCAL DECREASED GLUCOSE; Start 01/28/19 at 12:30 Metoprolol Tartrate (Lopressor) 50 mg BID PO Last administered on 02/04/19at 09:32; Admin Dose 50 MG; Start 01/28/19 at 21:00 Metoprolol Tartrate (Lopressor) 5 mg Q4H PRN IV HR>110 Hold SBP<100; Start 01/28/19 at 15:30 Mupirocin (Bactroban) 1 applic BID TOP Last administered on 02/04/19at 09:33; Admin Dose 1 APPLIC; Start 01/29/19 at 21:00 Atorvastatin Calcium (Lipitor) 10 mg HS PO Last administered on 02/03/19at 21:16; Admin Dose 10 MG; Start 02/01/19 at 21:00 Ceftriaxone Sodium 50 ml @ 100 mls/hr Q24H IVPB Last administered on 02/03/19at 17:55; Admin Dose 100 MLS/HR; Start 02/01/19 at 16:00 Losartan Potassium (Cozaar) 25 mg BID PO ; Start 02/04/19 at 11:30 BAY HAN Feb 04, 2019 14:04
[2019-02-04 15:45] VITALS: BP 131/61; PULSE 65; RESP 17
[2019-02-04] MEDS: CEFTRIAXONE 1 GM/NS 50 ML IVPB SCH (16:21)
[2019-02-04 19:47] VITALS: BP 125/58; PULSE 71; RESP 18
[2019-02-04] MEDS: DOXYCYCLINE 100 MG TAB PO SCH (21:36)
[2019-02-04] MEDS: ATORVASTATIN 10 MG TAB PO SCH (21:36)
[2019-02-04 23:52] VITALS: BP 133/61; PULSE 68; RESP 16
[2019-02-05] MEDS: PANTOPRAZOLE (EC) 40 MG TAB PO SCH (05:39)
[2019-02-05] MEDS: LEVOTHYROXINE 75 MCG TAB PO SCH (05:39)
[2019-02-05 07:23] VITALS: BP 137/64; PULSE 70; RESP 17
[2019-02-05] MEDS: INSULIN ASPART [NOVOLOG] 3 ML PEN SC SCH ×4 (08:22→21:32)
[2019-02-05] MEDS: DOXYCYCLINE 100 MG TAB PO SCH ×2 (09:00→21:29)
[2019-02-05] MEDS: AMLODIPINE 10 MG TAB PO SCH (09:01)
[2019-02-05] MEDS: METOPROLOL 50 MG TAB PO SCH ×2 (09:01→21:30)
[2019-02-05] MEDS: ASPIRIN 81 MG TAB PO SCH (09:02)
[2019-02-05] MEDS: LOSARTAN 25 MG TAB PO SCH (09:02)
[2019-02-05] MEDS: MUPIROCIN 2% 22 GM OINT TOP SCH ×2 (09:03→21:33)
[2019-02-05] MEDS: LOSARTAN 50 MG TAB PO SCH ×2 (09:03→21:29)
--- NOTE | 2019-02-05 10:13 | CONS ---
Assessment/Plan Assessment/Plan Assessment/Plan (Recall) 88 F c/ multiple comorbidities, who presents for evaluation of respiratory Sx.. She is additionally noted to have fallen... Head CT was notable for a R parieto-occipital hypodensity, suspicious for evolving infarction...for which neurology is consulted.. MRI brain confirmed an acute R parieto-occipital infarction, as well as multiple embolic appearing acute infarcts.. 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 TTE was concerning for a possible mitral valve vegetation...the likely u nderlying cause. A1C 6.9, LDL 88 P: Agree w/ asa/lipitor daily for secondary stroke prevention for now Medical management per primary PT/OT/ST as necessary Will follow clinically Consultation Date/Type/Reason Admit Date/Time Jan 27, 2019 at 06:14 Type of Consult Neurology Reason for Consultation abnl head CT Requesting Provider: ALBERTO SILVER MD Date/Time of Note DATE: 02/05/19 TIME: 10:13 24 HR Interval Summary Free Text/Dictation Continues acute care Exam/Review of Systems Exam Vitals Vital Signs Date Temp Pulse Resp B/P (MAP) Pulse Ox O2 O2 Flow FiO2 Time Delivery Rate 02/05/19 97.4 70 17 137/64 97 07:23 (88) 02/02/19 Room Air 16:07 Intake and Output 02/04/19 02/04/19 02/05/19 1515:00 23:00 07:00 IntakeIntake Total 600 ml 200 ml 220 ml BalanceBalance 600 ml 200 ml 220 ml Results Result Diagram: 02/05/19 0543 02/05/19 0543 Results 24hrs Laboratory Tests Test 02/04/19 11:35 02/04/19 16:29 02/04/19 21:33 02/05/19 01:49 Bedside Glucose 198 252 H 271 H 209 Test 02/05/19 05:43 02/05/19 08:12 White Blood Count 12.8 H Red Blood Count 3.98 #L Hemoglobin 10.2 #L Hematocrit 32.6 L Mean Corpuscular 81.9 L Volume Mean Corpuscular 25.6 L Hemoglobin Mean Corpuscular 31.3 L Hemoglobin Concent Red Cell 20.0 H Distribution Width Platelet Count 460 #H Mean Platelet Volume 11.2 H Immature 1.600 H Granulocytes % Neutrophils % 74.9 Lymphocytes % 16.1 Monocytes % 6.1 Eosinophils % 0.9 Basophils % 0.4 Nucleated Red Blood 0.0 Cells % Immature 0.200 H Granulocytes # Neutrophils # 9.6 H Lymphocytes # 2.1 Monocytes # 0.8 Eosinophils # 0.1 Basophils # 0.1 Nucleated Red Blood 0.0 Cells # Sodium Level 134 L Potassium Level 4.3 Chloride Level 100 Carbon Dioxide Level 24 Anion Gap 10 Blood Urea Nitrogen 20 Creatinine 0.78 Est Glomerular Filtrat Rate mL/min Glucose Level 140 Calcium Level 9.4 Bedside Glucose 148 Medications Medication Current Medications Pantoprazole (Protonix Tab) 40 mg DAILY@06 PO Last administered on 02/05/19at 05:39; Admin Dose 40 MG; Start 01/27/19 at 08:00 Acetaminophen (Tylenol Tab) 650 mg Q6H PRN PO MILD PAIN(1-3)OR ELEVATED TEMP; Start 01/27/19 at 08:00 Bisacodyl (Dulcolax) 10 mg Q12H PRN PO CONSTIPATION; Start 01/27/19 at 08:00 Amlodipine Besylate (Norvasc) 10 mg DAILY PO Last administered on 02/05/19at 09:01; Admin Dose 10 MG; Start 01/27/19 at 09:00 Levothyroxine Sodium (Synthroid) 75 mcg DAILY@06 PO Last administered on 02/05/19at 05:39; Admin Dose 75 MCG; Start 01/28/19 at 10:00 Losartan Potassium (Cozaar) 50 mg BID PO Last administered on 02/05/19at 09:03; Admin Dose 50 MG; Start 01/27/19 at 09:00 Aspirin (Aspirin) 81 mg DAILY PO Last administered on 02/05/19at 09:02; Admin Dose 81 MG; Start 01/28/19 at 09:00 Insulin Aspart (Novolog Insulin Pen) NOVOLOG *MILD* ALGORITHM WITH MEALS BEDTIME SC Last administered on 02/05/19at 08:22; Admin Dose 1 UNIT; Start 01/28/19 at 18:00 Miscellaneous Information 1 ea NOTE XX ; Start 01/28/19 at 12:30 Glucose (Glutose) 15 gm Q15M PRN PO DECREASED GLUCOSE; Start 01/28/19 at 12:30 Glucose (Glutose) 22.5 gm Q15M PRN PO DECREASED GLUCOSE; Start 01/28/19 at 12:30 Dextrose (D50w Syringe) 25 ml Q15M PRN IV DECREASED GLUCOSE; Start 01/28/19 at 12:30 Dextrose (D50w Syringe) 50 ml Q15M PRN IV DECREASED GLUCOSE; Start 01/28/19 at 12:30 Glucagon (Glucagen) 1 mg Q15M PRN IM DECREASED GLUCOSE; Start 01/28/19 at 12:30 Glucose (Glutose) 15 gm Q15M PRN BUCCAL DECREASED GLUCOSE; Start 01/28/19 at 12:30 Metoprolol Tartrate (Lopressor) 50 mg BID PO Last administered on 02/05/19 09:01; Admin Dose 50 MG; Start 01/28/19 at 21:00 Metoprolol Tartrate (Lopressor) 5 mg Q4H PRN IV HR>110 Hold SBP<100; Start 01/28/19 at 15:30 Mupirocin (Bactroban) 1 applic BID TOP Last administered on 02/05/19at 09:03; Admin Dose 1 APPLIC; Start 01/29/19 at 21:00 Atorvastatin Calcium (Lipitor) 10 mg HS PO Last administered on 02/04/19at 21:36; Admin Dose 10 MG; Start 02/01/19 at 21:00 Ceftriaxone Sodium 50 ml @ 100 mls/hr Q24H IVPB Last administered on 02/04/19at 16:21; Admin Dose 100 MLS/HR; Start 02/01/19 at 16:00 Losartan Potassium (Cozaar) 25 mg BID PO Last administered on 02/05/19at 09:02; Admin Dose 25 MG; Start 02/04/19 at 11:30 Doxycycline Hyclate (Vibramycin) 100 mg BID PO Last administered on 02/05/19at 09:00; Admin Dose 100 MG; Start 02/04/19 at 21:00; Stop 02/11/19 at 20:59 ANAT LUU Feb 05, 2019 10:13
--- NOTE | 2019-02-05 10:47 | CONS ---
Assessment/Plan Assessment/Plan Hospital Course (Demo Recall) IMP: 1. Positive troponin.-minimally positive troponin here with downtrend at this time. 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 Abnormal echocardiogram with lateral T-wave inversion.- No change on serial ecg assessment 3. Hypertension, under reasonable control. 4. Tachycardia, borderline-c/w s Tach. Nl TSH. Episode of SVT to 150 ? PAFL/AT. Short run self limited. No recurrence on BB 5. Altered mental state/nephropathy. 6. Hypokalemia-improved 7. Recurrent falls. 8. Generalized weakness. 9. Shortness of breath prior to admit at the hospital-ongoing 10. Hypothyroidism. 11. anemia-ongoing but unchanged 12.DNR 14. Bacteremia-by OSH Bld cx's. Echo here with preserved EF but possible vege tation on mitral valve concerning fro probable endocarditis 15. Possible occipital CVA by Head CT Recc: -Tele -Continue to trend cardiac enzymes -Contine asa and should be considered for systemic anticoagulation but given ongoing anemia will continue asa monotherapy at this time as tolerated -continue BB at current dose and follow for recurrent SVT and if so will consider amiodarone which I have not seen at this time -continue losartan/norvasc and follow reasonable BP but question dose of losar lizama -Contineu abx's and f/u cx data -onggoing ID eval with reccs for 6 weeks of CTX for treatment of endocarditis Consultation Date/Type/Reason Admit Date/Time Jan 27, 2019 at 06:14 Initial Consult Date 01/27/19 Type of Consult Cardiology Reason for Consultation positive troponin Requesting Provider: ALBERTO SILVER MD Date/Time of Note DATE: 02/05/19 TIME: 10:44 Exam/Review of Systems Vital Signs Vitals Vital Signs Date Temp Pulse Resp B/P (MAP) Pulse Ox O2 O2 Flow FiO2 Time Delivery Rate 02/05/19 97.4 70 17 137/64 97 07:23 (88) 02/02/19 Room Air 16:07 Intake and Output 02/04/19 02/04/19 02/05/19 1515:00 23:00 07:00 IntakeIntake Total 600 ml 200 ml 220 ml BalanceBalance 600 ml 200 ml 220 ml Exam Exam Review of Systems: CONSTITUTIONAL: No fevers, chills. PULMONARY: No sob CARDIOVASCULAR: No chest pain/palpitations GASTROINTESTINAL: No nausea/vomiting. GENITOURINARY: No hematuria/dysuria. MUSCULOSKELETAL: No myagias/arthalgias. PSYCHIATRIC: The patient denies depression. NEUROLOGIC: confused Constitutional: alert Psych: no complaints, confusion ENMT: mucosa pink and moist Neck: supple, jvd (9 cm water) Respiratory: clear to auscultation Cardiovascular: regular rate and rhythm Gastrointestinal: soft, non-tender Musculoskeletal: muscle weakness (mild generalized) Extremities: edema (none) Labs Result Diagram: 02/05/19 0543 02/05/19 0543 Results 24hrs Laboratory Tests Test 02/04/19 11:35 02/04/19 16:29 02/04/19 21:33 02/05/19 01:49 Bedside Glucose 198 252 H 271 H 209 Test 02/05/19 05:43 02/05/19 08:12 White Blood Count 12.8 H Red Blood Count 3.98 #L Hemoglobin 10.2 #L Hematocrit 32.6 L Mean Corpuscular 81.9 L Volume Mean Corpuscular 25.6 L Hemoglobin Mean Corpuscular 31.3 L Hemoglobin Concent Red Cell 20.0 H Distribution Width Platelet Count 460 #H Mean Platelet Volume 11.2 H Immature 1.600 H Granulocytes % Neutrophils % 74.9 Lymphocytes % 16.1 Monocytes % 6.1 Eosinophils % 0.9 Basophils % 0.4 Nucleated Red Blood 0.0 Cells % Immature 0.200 H Granulocytes # Neutrophils # 9.6 H Lymphocytes # 2.1 Monocytes # 0.8 Eosinophils # 0.1 Basophils # 0.1 Nucleated Red Blood 0.0 Cells # Sodium Level 134 L Potassium Level 4.3 Chloride Level 100 Carbon Dioxide Level 24 Anion Gap 10 Blood Urea Nitrogen 20 Creatinine 0.78 Est Glomerular Filtrat Rate mL/min Glucose Level 140 Calcium Level 9.4 Bedside Glucose 148 Medications Medications Current Medications Pantoprazole (Protonix Tab) 40 mg DAILY@06 PO Last administered on 02/05/19at 05:39; Admin Dose 40 MG; Start 01/27/19 at 08:00 Acetaminophen (Tylenol Tab) 650 mg Q6H PRN PO MILD PAIN(1-3)OR ELEVATED TEMP; Start 01/27/19 at 08:00 Bisacodyl (Dulcolax) 10 mg Q12H PRN PO CONSTIPATION; Start 01/27/19 at 08:00 Amlodipine Besylate (Norvasc) 10 mg DAILY PO Last administered on 02/05/19 09:01; Admin Dose 10 MG; Start 01/27/19 at 09:00 Levothyroxine Sodium (Synthroid) 75 mcg DAILY@06 PO Last administered on 02/05/19 05:39; Admin Dose 75 MCG; Start 01/28/19 at 10:00 Losartan Potassium (Cozaar) 50 mg BID PO Last administered on 02/05/19 09:03; Admin Dose 50 MG; Start 01/27/19 at 09:00 Aspirin (Aspirin) 81 mg DAILY PO Last administered on 02/05/19 09:02; Admin Dose 81 MG; Start 01/28/19 at 09:00 Insulin Aspart (Novolog Insulin Pen) NOVOLOG *MILD* ALGORITHM WITH MEALS BEDTIME SC Last administered on 02/05/19 08:22; Admin Dose 1 UNIT; Start 01/28/19 at 18:00 Miscellaneous Information 1 ea NOTE XX ; Start 01/28/19 at 12:30 Glucose (Glutose) 15 gm Q15M PRN PO DECREASED GLUCOSE; Start 01/28/19 at 12:30 Glucose (Glutose) 22.5 gm Q15M PRN PO DECREASED GLUCOSE; Start 01/28/19 at 12:30 Dextrose (D50w Syringe) 25 ml Q15M PRN IV DECREASED GLUCOSE; Start 01/28/19 at 12:30 Dextrose (D50w Syringe) 50 ml Q15M PRN IV DECREASED GLUCOSE; Start 01/28/19 at 12:30 Glucagon (Glucagen) 1 mg Q15M PRN IM DECREASED GLUCOSE; Start 01/28/19 at 12:30 Glucose (Glutose) 15 gm Q15M PRN BUCCAL DECREASED GLUCOSE; Start 01/28/19 at 12:30 Metoprolol Tartrate (Lopressor) 50 mg BID PO Last administered on 02/05/19 09:01; Admin Dose 50 MG; Start 01/28/19 at 21:00 Metoprolol Tartrate (Lopressor) 5 mg Q4H PRN IV HR>110 Hold SBP<100; Start 01/28/19 at 15:30 Mupirocin (Bactroban) 1 applic BID TOP Last administered on 02/05/19 09:03; Admin Dose 1 APPLIC; Start 01/29/19 at 21:00 Atorvastatin Calcium (Lipitor) 10 mg HS PO Last administered on 02/04/19at 21:36; Admin Dose 10 MG; Start 02/01/19 at 21:00 Ceftriaxone Sodium 50 ml @ 100 mls/hr Q24H IVPB Last administered on 02/04/19at 16:21; Admin Dose 100 MLS/HR; Start 02/01/19 at 16:00 Losartan Potassium (Cozaar) 25 mg BID PO Last administered on 02/05/19at 09:02; Admin Dose 25 MG; Start 02/04/19 at 11:30 Doxycycline Hyclate (Vibramycin) 100 mg BID PO Last administered on 02/05/19at 09:00; Admin Dose 100 MG; Start 02/04/19 at 21:00; Stop 02/11/19 at 20:59 TELLY ROSSI Feb 05, 2019 10:47
[2019-02-05 11:04] VITALS: BP 120/58; PULSE 57; RESP 18
--- NOTE | 2019-02-05 13:14 | PN ---
Date/Time of Note Date/Time of Note DATE: 02/05/19 TIME: 13:14 Assessment/Plan VTE Prophylaxis Risk score (from Ns)>0 risk: 7 SCD applied (from Ns): Yes Pharmacological prophylaxis: NA/contraindicated Pharm contraindication: low risk/ambulating Lines/Catheters IV [facility]from [facility] Saline Lock Urinary Cath still in place: No Assessment/Plan Hospital Course 88 y/o with 1 Positive troponin in outside hospital. Assess significance, assess for ongoing true acute coronary syndrome.-minimally positive troponin here with downtrend at this time Abnormal echocardiogram with lateral T-wave inversion.- No chest pain , trop down trending 2. Sepsis due to UTI/ gram +bacterimia from OSH, cultures positive from [facility] possible for strep sensitive to penicillin ECHO +MV endocarditis 3. metabolic encephalopathy vs dementia now MRI +Multiple embolic infarcts 4. Cachexia. 5. Iron deficiency Anemia 6. DM type II, controlled 7. Hypothyroidism 8. Malnourishment 9. electrolyte imbalance 10. hx of fall at home 11. S.p right hip surgery 12 Hypomag 13 Hx falls with scalp swelling with scalp hematoma on this CAT scan Assessment/Plan -rocephin per ID [id number] DAYS -PICC line -cw aspirin however patient has significant anemia, statin, not acandidate for anticoagulation due to co morbities, hx falls - cw losaratn/amlodipine and MTP -CW ferrlicit - Cx NEG so far here ID consult dr Darby -GI proph. Protonix -dr Erwin cardiology consult appreciated - PT eval and mobility dc planning tmw Result Diagram: 02/05/19 0543 02/05/19 0543 Results 24hrs Laboratory Tests Test 02/04/19 16:29 02/04/19 21:33 02/05/19 01:49 02/05/19 05:43 Bedside Glucose 252 H 271 H 209 White Blood Count 12.8 H Red Blood Count 3.98 #L Hemoglobin 10.2 #L Hematocrit 32.6 L Mean Corpuscular 81.9 L Volume Mean Corpuscular 25.6 L Hemoglobin Mean Corpuscular 31.3 L Hemoglobin Concent Red Cell 20.0 H Distribution Width Platelet Count 460 #H Mean Platelet Volume 11.2 H Immature 1.600 H Granulocytes % Neutrophils % 74.9 Lymphocytes % 16.1 Monocytes % 6.1 Eosinophils % 0.9 Basophils % 0.4 Nucleated Red Blood 0.0 Cells % Immature 0.200 H Granulocytes # Neutrophils # 9.6 H Lymphocytes # 2.1 Monocytes # 0.8 Eosinophils # 0.1 Basophils # 0.1 Nucleated Red Blood 0.0 Cells # Sodium Level 134 L Potassium Level 4.3 Chloride Level 100 Carbon Dioxide Level 24 Anion Gap 10 Blood Urea Nitrogen 20 Creatinine 0.78 Est Glomerular Filtrat Rate mL/min Glucose Level 140 Calcium Level 9.4 Test 02/05/19 08:12 02/05/19 12:11 Bedside Glucose 148 168 Subjective 24 Hr Interval Summary Free Text/Dictation Ate a alittle spoke tofamily Exam/Review of Systems Exam Vitals Vital Signs Date Temp Pulse Resp B/P (MAP) Pulse Ox O2 O2 Flow FiO2 Time Delivery Rate 02/05/19 97.9 57 18 120/58 97 11:04 (78) 02/02/19 Room Air 16:07 Intake and Output 02/04/19 02/04/19 02/05/19 1515:00 23:00 07:00 IntakeIntake Total 600 ml 200 ml 220 ml BalanceBalance 600 ml 200 ml 220 ml Exam thin, frail Lungs: clear bilaterally, decreased. CVS: regular rate and rhythm, SAMUEL Abdomen: soft, bowel sounds present, no hepatosplenomegally, no masses, no rebound or guarding. NO Edema Results Results 24hrs Laboratory Tests Test 02/04/19 16:29 02/04/19 21:33 02/05/19 01:49 02/05/19 05:43 Bedside Glucose 252 H 271 H 209 White Blood Count 12.8 H Red Blood Count 3.98 #L Hemoglobin 10.2 #L Hematocrit 32.6 L Mean Corpuscular 81.9 L Volume Mean Corpuscular 25.6 L Hemoglobin Mean Corpuscular 31.3 L Hemoglobin Concent Red Cell 20.0 H Distribution Width Platelet Count 460 #H Mean Platelet Volume 11.2 H Immature 1.600 H Granulocytes % Neutrophils % 74.9 Lymphocytes % 16.1 Monocytes % 6.1 Eosinophils % 0.9 Basophils % 0.4 Nucleated Red Blood 0.0 Cells % Immature 0.200 H Granulocytes # Neutrophils # 9.6 H Lymphocytes # 2.1 Monocytes # 0.8 Eosinophils # 0.1 Basophils # 0.1 Nucleated Red Blood 0.0 Cells # Sodium Level 134 L Potassium Level 4.3 Chloride Level 100 Carbon Dioxide Level 24 Anion Gap 10 Blood Urea Nitrogen 20 Creatinine 0.78 Est Glomerular Filtrat Rate mL/min Glucose Level 140 Calcium Level 9.4 Test 02/05/19 08:12 02/05/19 12:11 Bedside Glucose 148 168 Medications Medication Current Medications Pantoprazole (Protonix Tab) 40 mg DAILY@06 PO Last administered on 02/05/19at 05:39; Admin Dose 40 MG; Start 01/27/19 at 08:00 Acetaminophen (Tylenol Tab) 650 mg Q6H PRN PO MILD PAIN(1-3)OR ELEVATED TEMP; Start 01/27/19 at 08:00 Bisacodyl (Dulcolax) 10 mg Q12H PRN PO CONSTIPATION; Start 01/27/19 at 08:00 Amlodipine Besylate (Norvasc) 10 mg DAILY PO Last administered on 02/05/19at 09:01; Admin Dose 10 MG; Start 01/27/19 at 09:00 Levothyroxine Sodium (Synthroid) 75 mcg DAILY@06 PO Last administered on 02/05/19at 05:39; Admin Dose 75 MCG; Start 01/28/19 at 10:00 Losartan Potassium (Cozaar) 50 mg BID PO Last administered on 02/05/19at 09:03; Admin Dose 50 MG; Start 01/27/19 at 09:00 Aspirin (Aspirin) 81 mg DAILY PO Last administered on 02/05/19at 09:02; Admin Dose 81 MG; Start 01/28/19 at 09:00 Insulin Aspart (Novolog Insulin Pen) NOVOLOG *MILD* ALGORITHM WITH MEALS BEDTIME SC Last administered on 02/05/19at 12:27; Admin Dose 1 UNIT; Start 01/28/19 at 18:00 Miscellaneous Information 1 ea NOTE XX ; Start 01/28/19 at 12:30 Glucose (Glutose) 15 gm Q15M PRN PO DECREASED GLUCOSE; Start 01/28/19 at 12:30 Glucose (Glutose) 22.5 gm Q15M PRN PO DECREASED GLUCOSE; Start 01/28/19 at 12:30 Dextrose (D50w Syringe) 25 ml Q15M PRN IV DECREASED GLUCOSE; Start 01/28/19 at 12:30 Dextrose (D50w Syringe) 50 ml Q15M PRN IV DECREASED GLUCOSE; Start 01/28/19 at 12:30 Glucagon (Glucagen) 1 mg Q15M PRN IM DECREASED GLUCOSE; Start 01/28/19 at 12:30 Glucose (Glutose) 15 gm Q15M PRN BUCCAL DECREASED GLUCOSE; Start 01/28/19 at 12:30 Metoprolol Tartrate (Lopressor) 50 mg BID PO Last administered on 02/05/19at 09:01; Admin Dose 50 MG; Start 01/28/19 at 21:00 Metoprolol Tartrate (Lopressor) 5 mg Q4H PRN IV HR>110 Hold SBP<100; Start 01/28/19 at 15:30 Mupirocin (Bactroban) 1 applic BID TOP Last administered on 02/05/19at 09:03; Admin Dose 1 APPLIC; Start 01/29/19 at 21:00 Atorvastatin Calcium (Lipitor) 10 mg HS PO Last administered on 02/04/19at 21:36; Admin Dose 10 MG; Start 02/01/19 at 21:00 Ceftriaxone Sodium 50 ml @ 100 mls/hr Q24H IVPB Last administered on 02/04/19at 16:21; Admin Dose 100 MLS/HR; Start 02/01/19 at 16:00 Doxycycline Hyclate (Vibramycin) 100 mg BID PO Last administered on 02/05/19at 09:00; Admin Dose 100 MG; Start 02/04/19 at 21:00; Stop 02/11/19 at 20:59 ALBERTO SILVER MD Feb 05, 2019 13:14
[2019-02-05] MEDS ORDERED: LIDOCAINE 1% (MPF) 5 ML VIAL SC ONE (13:30)
[2019-02-05 15:24] VITALS: BP 123/58; PULSE 63; RESP 17
--- NOTE | 2019-02-05 15:44 | CONS ---
Assessment/Plan Assessment/Plan Hospital Course (Demo Recall) 1Alert, feels ok, no fevers MICROBIOLOGY: Blood culture from [facility] grew strep mitis. DIAGNOSTICS: 2D echo shows mitral valve vegetation. ANTIMICROBIALS: Rocephin Doxycycline PHYSICAL EXAMINATION: GENERAL: This is a fragile, chronically ill-appearing, elderly woman who is awake, in no distress. HEENT: Head atraumatic, normocephalic. NECK: Supple. CHEST: Rise symmetrical. Breath sounds diminished to bases. HEART: S1, S2. ABDOMEN: Soft, bowel sounds present. EXTREMITIES: Without cyanosis. ASSESSMENT: 1. Status post sepsis. 2. 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 4. Non-ST elevation myocardial infarction. 5. Failure to thrive. 6. Diabetes. 7. Hypertension. PLAN: The patient is stable.Anticipate discharge on IV Rocephin to complete 6 weeks, continue oral Doxy and topical Bactroban for MRSA decolonization Consultation Date/Type/Reason Admit Date/Time Jan 27, 2019 at 06:14 Initial Consult Date Type of Consult id Requesting Provider: ALBERTO SILVER MD Date/Time of Note DATE: 02/05/19 TIME: 15:43 Exam/Review of Systems Exam Vitals Vital Signs Date Temp Pulse Resp B/P (MAP) Pulse Ox O2 O2 Flow FiO2 Time Delivery Rate 02/05/19 97.8 63 17 123/58 96 15:24 (79) 02/02/19 Room Air 16:07 Intake and Output 02/04/19 02/04/19 02/05/19 1515:00 23:00 07:00 IntakeIntake Total 600 ml 200 ml 220 ml BalanceBalance 600 ml 200 ml 220 ml Results Result Diagram: 02/05/19 0543 02/05/19 0543 Results 24hrs Laboratory Tests Test 02/04/19 16:29 02/04/19 21:33 02/05/19 01:49 02/05/19 05:43 Bedside Glucose 252 H 271 H 209 White Blood Count 12.8 H Red Blood Count 3.98 #L Hemoglobin 10.2 #L Hematocrit 32.6 L Mean Corpuscular 81.9 L Volume Mean Corpuscular 25.6 L Hemoglobin Mean Corpuscular 31.3 L Hemoglobin Concent Red Cell 20.0 H Distribution Width Platelet Count 460 #H Mean Platelet Volume 11.2 H Immature 1.600 H Granulocytes % Neutrophils % 74.9 Lymphocytes % 16.1 Monocytes % 6.1 Eosinophils % 0.9 Basophils % 0.4 Nucleated Red Blood 0.0 Cells % Immature 0.200 H Granulocytes # Neutrophils # 9.6 H Lymphocytes # 2.1 Monocytes # 0.8 Eosinophils # 0.1 Basophils # 0.1 Nucleated Red Blood 0.0 Cells # Sodium Level 134 L Potassium Level 4.3 Chloride Level 100 Carbon Dioxide Level 24 Anion Gap 10 Blood Urea Nitrogen 20 Creatinine 0.78 Est Glomerular Filtrat Rate mL/min Glucose Level 140 Calcium Level 9.4 Test 02/05/19 08:12 02/05/19 12:11 Bedside Glucose 148 168 Medications Medication Current Medications Pantoprazole (Protonix Tab) 40 mg DAILY@06 PO Last administered on 02/05/19 05:39; Admin Dose 40 MG; Start 01/27/19 at 08:00 Acetaminophen (Tylenol Tab) 650 mg Q6H PRN PO MILD PAIN(1-3)OR ELEVATED TEMP; Start 01/27/19 at 08:00 Bisacodyl (Dulcolax) 10 mg Q12H PRN PO CONSTIPATION; Start 01/27/19 at 08:00 Amlodipine Besylate (Norvasc) 10 mg DAILY PO Last administered on 02/05/19at 09:01; Admin Dose 10 MG; Start 01/27/19 at 09:00 Levothyroxine Sodium (Synthroid) 75 mcg DAILY@06 PO Last administered on 02/05/19 05:39; Admin Dose 75 MCG; Start 01/28/19 at 10:00 Losartan Potassium (Cozaar) 50 mg BID PO Last administered on 02/05/19 09:03; Admin Dose 50 MG; Start 01/27/19 at 09:00 Aspirin (Aspirin) 81 mg DAILY PO Last administered on 02/05/19 09:02; Admin Dose 81 MG; Start 01/28/19 at 09:00 Insulin Aspart (Novolog Insulin Pen) NOVOLOG *MILD* ALGORITHM WITH MEALS BEDTIME SC Last administered on 02/05/19at 12:27; Admin Dose 1 UNIT; Start 01/28/19 at 18:00 Miscellaneous Information 1 ea NOTE XX ; Start 01/28/19 at 12:30 Glucose (Glutose) 15 gm Q15M PRN PO DECREASED GLUCOSE; Start 01/28/19 at 12:30 Glucose (Glutose) 22.5 gm Q15M PRN PO DECREASED GLUCOSE; Start 01/28/19 at 12:30 Dextrose (D50w Syringe) 25 ml Q15M PRN IV DECREASED GLUCOSE; Start 01/28/19 at 12:30 Dextrose (D50w Syringe) 50 ml Q15M PRN IV DECREASED GLUCOSE; Start 01/28/19 at 12:30 Glucagon (Glucagen) 1 mg Q15M PRN IM DECREASED GLUCOSE; Start 01/28/19 at 12:30 Glucose (Glutose) 15 gm Q15M PRN BUCCAL DECREASED GLUCOSE; Start 01/28/19 at 12:30 Metoprolol Tartrate (Lopressor) 50 mg BID PO Last administered on 02/05/19at 09:01; Admin Dose 50 MG; Start 01/28/19 at 21:00 Metoprolol Tartrate (Lopressor) 5 mg Q4H PRN IV HR>110 Hold SBP<100; Start 01/28/19 at 15:30 Mupirocin (Bactroban) 1 applic BID TOP Last administered on 02/05/19 09:03; Admin Dose 1 APPLIC; Start 01/29/19 at 21:00 Atorvastatin Calcium (Lipitor) 10 mg HS PO Last administered on 02/04/19at 21:36; Admin Dose 10 MG; Start 02/01/19 at 21:00 Ceftriaxone Sodium 50 ml @ 100 mls/hr Q24H IVPB Last administered on 02/04/19at 16:21; Admin Dose 100 MLS/HR; Start 02/01/19 at 16:00 Doxycycline Hyclate (Vibramycin) 100 mg BID PO Last administered on 02/05/19at 09:00; Admin Dose 100 MG; Start 02/04/19 at 21:00; Stop 02/11/19 at 20:59 SHARDA LANDIS NP Feb 05, 2019 15:44
[2019-02-05] MEDS: CEFTRIAXONE 1 GM/NS 50 ML IVPB SCH (18:23)
[2019-02-05 19:57] VITALS: BP 124/78; PULSE 70; RESP 19
[2019-02-05] MEDS: ATORVASTATIN 10 MG TAB PO SCH (21:29)
[2019-02-06 00:08] VITALS: BP 143/56; PULSE 70; RESP 19
[2019-02-06 04:15] VITALS: BP 131/63; PULSE 70; RESP 18
[2019-02-06] MEDS: LEVOTHYROXINE 75 MCG TAB PO SCH (06:09)
[2019-02-06] MEDS: PANTOPRAZOLE (EC) 40 MG TAB PO SCH (06:09)
[2019-02-06 07:25] VITALS: BP 136/62; PULSE 71; RESP 17
[2019-02-06] MEDS: INSULIN ASPART [NOVOLOG] 3 ML PEN SC SCH ×2 (07:51→11:40)
[2019-02-06] MEDS: DOXYCYCLINE 100 MG TAB PO SCH (08:24)
[2019-02-06] MEDS: ASPIRIN 81 MG TAB PO SCH (08:24)
[2019-02-06] MEDS: METOPROLOL 50 MG TAB PO SCH (08:25)
[2019-02-06] MEDS: AMLODIPINE 10 MG TAB PO SCH (08:25)
[2019-02-06] MEDS: LOSARTAN 50 MG TAB PO SCH (08:25)
[2019-02-06] MEDS: MUPIROCIN 2% 22 GM OINT TOP SCH (08:26)
--- NOTE | 2019-02-06 08:29 | CONS ---
Consult Date/Type/Reason Admit Date/Time Jan 27, 2019 at 06:14 Initial Consult Date Requesting Provider: ALBERTO SILVER MD Date/Time of Note DATE: 02/06/19 TIME: 08:27 Subjective NO acute events - pt comfortable - more alert today - in better spirits - no obvious CP - will monitor clinically now. ROS: No fever, no chills, no nausea, no vomiting, no diarrhea/constipation No recent weight changes No chest pain, no PND, no orthopnea - improved SOB No dizziness, blurred vision No thirst, no heat or cold intolerance Objective Vitals Vital Signs Date Temp Pulse Resp B/P (MAP) Pulse Ox O2 O2 Flow FiO2 Time Delivery Rate 02/06/19 97.6 71 17 136/62 98 07:25 (86) 02/02/19 Room Air 16:07 Intake and Output 02/05/19 02/05/19 02/06/19 1515:00 23:00 07:00 IntakeIntake Total 380 ml 150 ml BalanceBalance 380 ml 150 ml Results/Medications Result Diagram: 02/06/19 0520 02/05/19 0543 Results 24 hrs Laboratory Tests Test 02/05/19 12:11 02/05/19 15:20 02/05/19 18:22 02/05/19 21:11 Bedside Glucose 168 190 183 Urine Color YELLOW Urine Clarity CLOUDY A Urine pH 6.0 Urine Specific 1.012 [place] Urine Ketones NEGATIVE Urine Nitrite NEGATIVE Urine Bilirubin NEGATIVE Urine Urobilinogen NEGATIVE Urine Leukocyte NEGATIVE Esterase Urine Microscopic 23 H RBC Urine Microscopic 2 WBC Urine Squamous MODERATE Epithelial Cells Urine Bacteria FEW A Urine Hemoglobin 1+ H Urine Glucose NEGATIVE Urine Total Protein NEGATIVE Test 02/06/19 05:20 02/06/19 07:46 White Blood Count 10.8 Red Blood Count 3.60 L Hemoglobin 9.3 L Hematocrit 29.6 L Mean Corpuscular 82.2 Volume Mean Corpuscular 25.8 L Hemoglobin Mean Corpuscular 31.4 L Hemoglobin Concent Red Cell 20.1 H Distribution Width Platelet Count 466 H Mean Platelet Volume 10.1 Immature 1.000 H Granulocytes % Neutrophils % 74.1 Lymphocytes % 18.1 Monocytes % 5.4 Eosinophils % 0.8 Basophils % 0.6 Nucleated Red Blood 0.0 Cells % Immature 0.110 H Granulocytes # Neutrophils # 8.0 H Lymphocytes # 2.0 Monocytes # 0.6 Eosinophils # 0.1 Basophils # 0.1 Nucleated Red Blood 0.0 Cells # Bedside Glucose 158 Home Meds Active Scripts Amoxicillin-Clavulanate K* (Augmentin*) 875 Mg Tab, 875 MG PO BID for 10 Days, TAB Prov:SATHYA MOSES MD 07/12/15 Nystatin* (Nystop* Powder) 1 Applic Powder, 1 APPLIC TOP BID for 28 Days, BOTTLE Prov:SATHYA MOSES MD 07/12/15 Losartan Potassium* (Cozaar*) 50 Mg Tab, 50 MG PO Q12 for 10 Days, TAB Prov:SATHYA MOSES MD 07/12/15 Levothyroxine Sodium* (Synthroid*) 75 Mcg Tab, 75 MCG PO DAILY@06 for 28 Days, TAB Prov:SATHYA MOSES MD 07/12/15 Amlodipine Besylate* (Norvasc*) 10 Mg Tab, 10 MG PO DAILY for 28 Days, TAB Prov:SATHYA MOSES MD 07/12/15 Medications Current Medications Pantoprazole (Protonix Tab) 40 mg DAILY@06 PO Last administered on 02/06/19at 06:09; Admin Dose 40 MG; Start 01/27/19 at 08:00 Acetaminophen (Tylenol Tab) 650 mg Q6H PRN PO MILD PAIN(1-3)OR ELEVATED TEMP; Start 01/27/19 at 08:00 Bisacodyl (Dulcolax) 10 mg Q12H PRN PO CONSTIPATION; Start 01/27/19 at 08:00 Amlodipine Besylate (Norvasc) 10 mg DAILY PO Last administered on 02/06/19at 08:25; Admin Dose 10 MG; Start 01/27/19 at 09:00 Levothyroxine Sodium (Synthroid) 75 mcg DAILY@06 PO Last administered on 02/06/19at 06:09; Admin Dose 75 MCG; Start 01/28/19 at 10:00 Losartan Potassium (Cozaar) 50 mg BID PO Last administered on 02/06/19at 08:25; Admin Dose 50 MG; Start 01/27/19 at 09:00 Aspirin (Aspirin) 81 mg DAILY PO Last administered on 02/06/19at 08:24; Admin Dose 81 MG; Start 01/28/19 at 09:00 Insulin Aspart (Novolog Insulin Pen) NOVOLOG *MILD* ALGORITHM WITH MEALS BEDTIME SC Last administered on 02/06/19at 07:51; Admin Dose 1 UNIT; Start 01/28/19 at 18:00 Miscellaneous Information 1 ea NOTE XX ; Start 01/28/19 at 12:30 Glucose (Glutose) 15 gm Q15M PRN PO DECREASED GLUCOSE; Start 01/28/19 at 12:30 Glucose (Glutose) 22.5 gm Q15M PRN PO DECREASED GLUCOSE; Start 01/28/19 at 12:30 Dextrose (D50w Syringe) 25 ml Q15M PRN IV DECREASED GLUCOSE; Start 01/28/19 at 12:30 Dextrose (D50w Syringe) 50 ml Q15M PRN IV DECREASED GLUCOSE; Start 01/28/19 at 12:30 Glucagon (Glucagen) 1 mg Q15M PRN IM DECREASED GLUCOSE; Start 01/28/19 at 12:30 Glucose (Glutose) 15 gm Q15M PRN BUCCAL DECREASED GLUCOSE; Start 01/28/19 at 12:30 Metoprolol Tartrate (Lopressor) 50 mg BID PO Last administered on 02/06/19at 08:25; Admin Dose 50 MG; Start 01/28/19 at 21:00 Metoprolol Tartrate (Lopressor) 5 mg Q4H PRN IV HR>110 Hold SBP<100; Start 01/28/19 at 15:30 Mupirocin (Bactroban) 1 applic BID TOP Last administered on 02/06/19at 08:26; Admin Dose 1 APPLIC; Start 01/29/19 at 21:00 Atorvastatin Calcium (Lipitor) 10 mg HS PO Last administered on 02/05/19at 21:29; Admin Dose 10 MG; Start 02/01/19 at 21:00 Ceftriaxone Sodium 50 ml @ 100 mls/hr Q24H IVPB Last administered on 02/05/19at 18:23; Admin Dose 100 MLS/HR; Start 02/01/19 at 16:00 Doxycycline Hyclate (Vibramycin) 100 mg BID PO Last administered on 02/06/19at 08:24; Admin Dose 100 MG; Start 02/04/19 at 21:00; Stop 02/11/19 at 20:59 Assessment/Plan Hospital Course (Demo Recall) 1. Positive troponin in outside hospital. Assess significance, assess for ongoing true acute coronary syndrome.-minimally positive troponin here with downtrend at this time - no intervention planned now - feels better. 2. Abnormal echocardiogram with lateral T-wave inversion.- No change on serial ecg assessment - con't med rx. 3. Hypertension, under reasonable control.- better with therapy. Will add more Rx today, 4. Tachycardia, borderline-c/w s Tach. Nl TSH. Episode of SVT to 150 ? PAFL/AT. Short run self limited - now in sinus. Rate controlled. Sinus now. On meds. 5. Altered mental state/nephropathy - more alert - follows commands. 6. Hypokalemia-improved - treated to goal. K 4.3 now. 7. Recurrent falls- now in bed. 8. Generalized weakness- improved. 9. Shortness of breath prior to admit at the hospital- not in CHF by exam. 10. Hypothyroidism. 11. anemia-ongoing but unchanged - Hg 9.3 now. Treated. NO acute bleeding. 12.DNR THERESA HAYNES MD Feb 06, 2019 08:29
[2019-02-06 11:37] VITALS: BP 165/68; PULSE 81; RESP 17
--- NOTE | 2019-02-06 12:23 | PN ---
Date/Time of Note Date/Time of Note DATE: 02/06/19 TIME: 12:22 Assessment/Plan VTE Prophylaxis Risk score (from Ns)>0 risk: 4 SCD applied (from Ns): Yes Pharmacological prophylaxis: NA/contraindicated Pharm contraindication: low risk/ambulating Lines/Catheters IV Catheter Type (from Nrsg): PICC Line Central line still needed: Yes Urinary Cath still in place: No Assessment/Plan Hospital Course 88 y/o with 1 Positive troponin in outside hospital. Assess significance, assess for ongoing true acute coronary syndrome.-minimally positive troponin here with downtrend at this time Abnormal echocardiogram with lateral T-wave inversion.- No chest pain , trop down trending 2. Sepsis due to UTI/ gram +bacterimia from OSH, cultures positive from [facility] possible for strep sensitive to penicillin ECHO +MV endocarditis 3. metabolic encephalopathy vs dementia now MRI +Multiple embolic infarcts 4. Cachexia. 5. Iron deficiency Anemia 6. DM type II, controlled 7. Hypothyroidism 8. Malnourishment 9. electrolyte imbalance 10. hx of fall at home 11. S.p right hip surgery 12 Hypomag 13 Hx falls with scalp swelling with scalp hematoma on this CAT scan Assessment/Plan -rocephin per ID X 6 weeks total - sp PICC line -cw aspirin however patient has significant anemia, statin, not acandidate for anticoagulation due to co morbities, hx falls - cw losaratn/amlodipine and MTP -CW ferrlicit - Cx NEG so far here ID consult dr Darby -GI proph. Protonix -dr Erwin cardiology consult appreciated - PT eval and mobility dc planning today pt will need fu with ID/ Cards post dc in 1-2 weeks Result Diagram: 02/06/19 0520 02/05/19 0543 Results 24hrs Laboratory Tests Test 02/05/19 15:20 02/05/19 18:22 02/05/19 21:11 02/06/19 05:20 Urine Color YELLOW Urine Clarity CLOUDY A Urine pH 6.0 Urine Specific 1.012 [place] Urine Ketones NEGATIVE Urine Nitrite NEGATIVE Urine Bilirubin NEGATIVE Urine Urobilinogen NEGATIVE Urine Leukocyte NEGATIVE Esterase Urine Microscopic 23 H RBC Urine Microscopic 2 WBC Urine Squamous MODERATE Epithelial Cells Urine Bacteria FEW A Urine Hemoglobin 1+ H Urine Glucose NEGATIVE Urine Total Protein NEGATIVE Bedside Glucose 190 183 White Blood Count 10.8 Red Blood Count 3.60 L Hemoglobin 9.3 L Hematocrit 29.6 L Mean Corpuscular 82.2 Volume Mean Corpuscular 25.8 L Hemoglobin Mean Corpuscular 31.4 L Hemoglobin Concent Red Cell 20.1 H Distribution Width Platelet Count 466 H Mean Platelet Volume 10.1 Immature 1.000 H Granulocytes % Neutrophils % 74.1 Lymphocytes % 18.1 Monocytes % 5.4 Eosinophils % 0.8 Basophils % 0.6 Nucleated Red Blood 0.0 Cells % Immature 0.110 H Granulocytes # Neutrophils # 8.0 H Lymphocytes # 2.0 Monocytes # 0.6 Eosinophils # 0.1 Basophils # 0.1 Nucleated Red Blood 0.0 Cells # Test 02/06/19 07:46 02/06/19 11:28 Bedside Glucose 158 136 Subjective 24 Hr Interval Summary Free Text/Dictation Pt doing well got PICC yesterday no cp/sob Exam/Review of Systems Exam Vitals Vital Signs Date Temp Pulse Resp B/P (MAP) Pulse Ox O2 O2 Flow FiO2 Time Delivery Rate 02/06/19 97.8 81 17 165/68 98 11:37 (100) 02/02/19 Room Air 16:07 Intake and Output 02/05/19 02/05/19 02/06/19 1515:00 23:00 07:00 IntakeIntake Total 380 ml 150 ml BalanceBalance 380 ml 150 ml Exam Exam thin, frail Lungs: clear bilaterally, decreased. CVS: regular rate and rhythm, SAMUEL Abdomen: soft, bowel sounds present, no hepatosplenomegally, no masses, no rebound or guarding. NO Edema Results Results 24hrs Laboratory Tests Test 02/05/19 15:20 02/05/19 18:22 02/05/19 21:11 02/06/19 05:20 Urine Color YELLOW Urine Clarity CLOUDY A Urine pH 6.0 Urine Specific 1.012 [place] Urine Ketones NEGATIVE Urine Nitrite NEGATIVE Urine Bilirubin NEGATIVE Urine Urobilinogen NEGATIVE Urine Leukocyte NEGATIVE Esterase Urine Microscopic 23 H RBC Urine Microscopic 2 WBC Urine Squamous MODERATE Epithelial Cells Urine Bacteria FEW A Urine Hemoglobin 1+ H Urine Glucose NEGATIVE Urine Total Protein NEGATIVE Bedside Glucose 190 183 White Blood Count 10.8 Red Blood Count 3.60 L Hemoglobin 9.3 L Hematocrit 29.6 L Mean Corpuscular 82.2 Volume Mean Corpuscular 25.8 L Hemoglobin Mean Corpuscular 31.4 L Hemoglobin Concent Red Cell 20.1 H Distribution Width Platelet Count 466 H Mean Platelet Volume 10.1 Immature 1.000 H Granulocytes % Neutrophils % 74.1 Lymphocytes % 18.1 Monocytes % 5.4 Eosinophils % 0.8 Basophils % 0.6 Nucleated Red Blood 0.0 Cells % Immature 0.110 H Granulocytes # Neutrophils # 8.0 H Lymphocytes # 2.0 Monocytes # 0.6 Eosinophils # 0.1 Basophils # 0.1 Nucleated Red Blood 0.0 Cells # Test 02/06/19 07:46 02/06/19 11:28 Bedside Glucose 158 136 Medications Medication Current Medications Pantoprazole (Protonix Tab) 40 mg DAILY@06 PO Last administered on 02/06/19at 06:09; Admin Dose 40 MG; Start 01/27/19 at 08:00 Acetaminophen (Tylenol Tab) 650 mg Q6H PRN PO MILD PAIN(1-3)OR ELEVATED TEMP; Start 01/27/19 at 08:00 Bisacodyl (Dulcolax) 10 mg Q12H PRN PO CONSTIPATION; Start 01/27/19 at 08:00 Amlodipine Besylate (Norvasc) 10 mg DAILY PO Last administered on 02/06/19at 08:25; Admin Dose 10 MG; Start 01/27/19 at 09:00 Levothyroxine Sodium (Synthroid) 75 mcg DAILY@06 PO Last administered on 02/06/19at 06:09; Admin Dose 75 MCG; Start 01/28/19 at 10:00 Losartan Potassium (Cozaar) 50 mg BID PO Last administered on 02/06/19at 08:25; Admin Dose 50 MG; Start 01/27/19 at 09:00 Aspirin (Aspirin) 81 mg DAILY PO Last administered on 02/06/19at 08:24; Admin Dose 81 MG; Start 01/28/19 at 09:00 Insulin Aspart (Novolog Insulin Pen) NOVOLOG *MILD* ALGORITHM WITH MEALS BEDTIME SC Last administered on 02/06/19at 07:51; Admin Dose 1 UNIT; Start 01/28/19 at 18:00 Miscellaneous Information 1 ea NOTE XX ; Start 01/28/19 at 12:30 Glucose (Glutose) 15 gm Q15M PRN PO DECREASED GLUCOSE; Start 01/28/19 at 12:30 Glucose (Glutose) 22.5 gm Q15M PRN PO DECREASED GLUCOSE; Start 01/28/19 at 12:30 Dextrose (D50w Syringe) 25 ml Q15M PRN IV DECREASED GLUCOSE; Start 01/28/19 at 12:30 Dextrose (D50w Syringe) 50 ml Q15M PRN IV DECREASED GLUCOSE; Start 01/28/19 at 12:30 Glucagon (Glucagen) 1 mg Q15M PRN IM DECREASED GLUCOSE; Start 01/28/19 at 12:30 Glucose (Glutose) 15 gm Q15M PRN BUCCAL DECREASED GLUCOSE; Start 01/28/19 at 12:30 Metoprolol Tartrate (Lopressor) 50 mg BID PO Last administered on 02/06/19 08:25; Admin Dose 50 MG; Start 01/28/19 at 21:00 Metoprolol Tartrate (Lopressor) 5 mg Q4H PRN IV HR>110 Hold SBP<100; Start 01/28/19 at 15:30 Mupirocin (Bactroban) 1 applic BID TOP Last administered on 02/06/19at 08:26; Admin Dose 1 APPLIC; Start 01/29/19 at 21:00 Atorvastatin Calcium (Lipitor) 10 mg HS PO Last administered on 02/05/19at 21:29; Admin Dose 10 MG; Start 02/01/19 at 21:00 Ceftriaxone Sodium 50 ml @ 100 mls/hr Q24H IVPB Last administered on 02/05/19 18:23; Admin Dose 100 MLS/HR; Start 02/01/19 at 16:00 Doxycycline Hyclate (Vibramycin) 100 mg BID PO Last administered on 02/06/19at 08:24; Admin Dose 100 MG; Start 02/04/19 at 21:00; Stop 02/11/19 at 20:59 ALBERTO SILVER MD Feb 06, 2019 12:23
--- NOTE | 2019-02-06 12:26 | PDOCDIS ---
Discharge Instructions DIAGNOSIS Discharge Diagnosis MV endocarditis multiple embolic strokes CONDITION [id number] Patient Condition: [id number] Fair HOME CARE INSTRUCTIONS: [id number] Diet Instructions: [id number] Low Fat /Cholesterol ACTIVITY: [id number] Activity Restrictions: [id number] Slowly Increase Activity Rest between Activity Avoid heavy lifting FOLLOW UP/APPOINTMENTS Follow-up Plan FU PCP in 1-[address] [place] in 2-[address] Darby in 2-3 weeks PICC Line care Repeat ECHO in 3-4 weeks ALBERTO SILVER MD Feb 06, 2019 12:26
[2019-02-06] MEDS ORDERED: MEGESTROL (40 MG/ML) 10ML CUP PO SCH (12:30)
--- NOTE | 2019-02-06 13:44 | CONS ---
Assessment/Plan Assessment/Plan Hospital Course (Demo Recall) Awake, looks comfortable MICROBIOLOGY: Blood culture from [facility] grew strep mitis. DIAGNOSTICS: 2D echo shows mitral valve vegetation. ANTIMICROBIALS: Rocephin Doxycycline PHYSICAL EXAMINATION: GENERAL: This is a fragile, chronically ill-appearing, elderly woman who is a wake, in no distress. HEENT: Head atraumatic, normocephalic. NECK: Supple. CHEST: Rise symmetrical. Breath sounds diminished to bases. HEART: S1, S2. ABDOMEN: Soft, bowel sounds present. EXTREMITIES: Without cyanosis. ASSESSMENT: 1. Status post sepsis. 2. 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 4. Non-ST elevation myocardial infarction. 5. Failure to thrive. 6. Diabetes. 7. Hypertension. PLAN: The patient is stable. PICC placed. Pending discharge on IV Rocephin to complete 6 weeks, continue oral Doxy and topical Bactroban for 5 more days for MRSA decolonization Consultation Date/Type/Reason Admit Date/Time Jan 27, 2019 at 06:14 Initial Consult Date Type of Consult id Requesting Provider: ALBERTO SILVER MD Date/Time of Note DATE: 02/06/19 TIME: 13:43 Exam/Review of Systems Exam Vitals Vital Signs Date Temp Pulse Resp B/P (MAP) Pulse Ox O2 O2 Flow FiO2 Time Delivery Rate 02/06/19 97.8 81 17 165/68 98 11:37 (100) 02/02/19 Room Air 16:07 Intake and Output 02/05/19 02/05/19 02/06/19 1515:00 23:00 07:00 IntakeIntake Total 380 ml 150 ml BalanceBalance 380 ml 150 ml Results Result Diagram: 02/06/19 0520 02/05/19 0543 Results 24hrs Laboratory Tests Test 02/05/19 15:20 02/05/19 18:22 02/05/19 21:11 02/06/19 05:20 Urine Color YELLOW Urine Clarity CLOUDY A Urine pH 6.0 Urine Specific 1.012 [place] Urine Ketones NEGATIVE Urine Nitrite NEGATIVE Urine Bilirubin NEGATIVE Urine Urobilinogen NEGATIVE Urine Leukocyte NEGATIVE Esterase Urine Microscopic 23 H RBC Urine Microscopic 2 WBC Urine Squamous MODERATE Epithelial Cells Urine Bacteria FEW A Urine Hemoglobin 1+ H Urine Glucose NEGATIVE Urine Total Protein NEGATIVE Bedside Glucose 190 183 White Blood Count 10.8 Red Blood Count 3.60 L Hemoglobin 9.3 L Hematocrit 29.6 L Mean Corpuscular 82.2 Volume Mean Corpuscular 25.8 L Hemoglobin Mean Corpuscular 31.4 L Hemoglobin Concent Red Cell 20.1 H Distribution Width Platelet Count 466 H Mean Platelet Volume 10.1 Immature 1.000 H Granulocytes % Neutrophils % 74.1 Lymphocytes % 18.1 Monocytes % 5.4 Eosinophils % 0.8 Basophils % 0.6 Nucleated Red Blood 0.0 Cells % Immature 0.110 H Granulocytes # Neutrophils # 8.0 H Lymphocytes # 2.0 Monocytes # 0.6 Eosinophils # 0.1 Basophils # 0.1 Nucleated Red Blood 0.0 Cells # Test 02/06/19 07:46 02/06/19 11:28 Bedside Glucose 158 136 Medications Medication Current Medications Pantoprazole (Protonix Tab) 40 mg DAILY@06 PO Last administered on 02/06/19 06:09; Admin Dose 40 MG; Start 01/27/19 at 08:00 Acetaminophen (Tylenol Tab) 650 mg Q6H PRN PO MILD PAIN(1-3)OR ELEVATED TEMP; Start 01/27/19 at 08:00 Bisacodyl (Dulcolax) 10 mg Q12H PRN PO CONSTIPATION; Start 01/27/19 at 08:00 Amlodipine Besylate (Norvasc) 10 mg DAILY PO Last administered on 02/06/19at 08:25; Admin Dose 10 MG; Start 01/27/19 at 09:00 Levothyroxine Sodium (Synthroid) 75 mcg DAILY@06 PO Last administered on 02/06/19at 06:09; Admin Dose 75 MCG; Start 01/28/19 at 10:00 Losartan Potassium (Cozaar) 50 mg BID PO Last administered on 02/06/19 08:25; Admin Dose 50 MG; Start 01/27/19 at 09:00 Aspirin (Aspirin) 81 mg DAILY PO Last administered on 02/06/19 08:24; Admin Dose 81 MG; Start 01/28/19 at 09:00 Insulin Aspart (Novolog Insulin Pen) NOVOLOG *MILD* ALGORITHM WITH MEALS BEDTIME SC Last administered on 02/06/19at 07:51; Admin Dose 1 UNIT; Start 01/28/19 at 18:00 Miscellaneous Information 1 ea NOTE XX ; Start 01/28/19 at 12:30 Glucose (Glutose) 15 gm Q15M PRN PO DECREASED GLUCOSE; Start 01/28/19 at 12:30 Glucose (Glutose) 22.5 gm Q15M PRN PO DECREASED GLUCOSE; Start 01/28/19 at 12:30 Dextrose (D50w Syringe) 25 ml Q15M PRN IV DECREASED GLUCOSE; Start 01/28/19 at 12:30 Dextrose (D50w Syringe) 50 ml Q15M PRN IV DECREASED GLUCOSE; Start 01/28/19 at 12:30 Glucagon (Glucagen) 1 mg Q15M PRN IM DECREASED GLUCOSE; Start 01/28/19 at 12:30 Glucose (Glutose) 15 gm Q15M PRN BUCCAL DECREASED GLUCOSE; Start 01/28/19 at 12:30 Metoprolol Tartrate (Lopressor) 50 mg BID PO Last administered on 02/06/19 08:25; Admin Dose 50 MG; Start 01/28/19 at 21:00 Metoprolol Tartrate (Lopressor) 5 mg Q4H PRN IV HR>110 Hold SBP<100; Start 01/15 11/03 at 15:30 Mupirocin (Bactroban) 1 applic BID TOP Last administered on 02/06/19at 08:26; Admin Dose 1 APPLIC; Start 01/29/19 at 21:00 Atorvastatin Calcium (Lipitor) 10 mg HS PO Last administered on 02/05/19at 21:29; Admin Dose 10 MG; Start 02/01/19 at 21:00 Ceftriaxone Sodium 50 ml @ 100 mls/hr Q24H IVPB Last administered on 02/05/19at 18:23; Admin Dose 100 MLS/HR; Start 02/01/19 at 16:00 Doxycycline Hyclate (Vibramycin) 100 mg BID PO Last administered on 02/06/19at 08:24; Admin Dose 100 MG; Start 02/04/19 at 21:00; Stop 02/11/19 at 20:59 Megestrol Acetate (Megace Susp) 400 mg BID PO ; Start 02/06/19 at 12:30 SHARDA LANDIS NP Feb 06, 2019 13:44
--- NOTE | 2019-02-06 16:09 | DS ---
DATE OF ADMISSION: 01/27/2019 DATE OF DISCHARGE: 02/06/2019 HISTORY OF PRESENT ILLNESS AND HOSPITAL COURSE: This is an 88-year-old female with a past medical hi story of right hip surgery, hypothyroidism, hypertension, presented to the [facility] with c omplaints of shortness of breath and history of falls. On admission, patient reported some shortness of breath there. The patient also had history of diabetes type 2, gastric ulcer, dementia, hyperten ammy. On there, the patient had a white count of 12, hemoglobin 8. UA showed 21 to 50 WBCs, 2+ leuk ocyte esterase, glucose 215, sodium 126, BUN of 21, creatinine 0.7. Troponin was 0.08, lactate of 1. 0. Procalcitonin 2.20, BNP 2.29. The patient was given 1 liter normal saline, was given 1 gram of R ocephin and was transferred to [facility] due to insurance reasons. The patient wa s initially admitted under the care of Dr. Moses. Cardiology was consulted due to elevated troponins . White count was 11.5 on admission. The patient also had a chest x-ray here which showed mild card iomegaly, aortic atherosclerosis. The blood cultures from [facility] were called in and the y were positive for Streptococcus, which was sensitive to Rocephin. The patient was initially treate d with vancomycin and cefepime. The patient was seen by cardiology consultation by Dr. Moses and the n ID consultation with Dr. Darby. Echo showed moderate to severe aortic stenosis, aortic mode rately calcified. The patient had echogenic structure seen on the antral mitral valve concerning for possible vegetation, so the patient was being treated for endocarditis. The patient was noted to bull ve a scalp swelling. Had a CT of the head that showed likely hematoma in the midline posterior front al scalp, region of low attenuation seen in the right posterior parietal region which may represent i nvolving infarct, perhaps acute versus recent. Neurology consultation was obtained from Dr. Hayde summers nd recommendations were followed. 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 Finding suggesting embolic etiology. Case was discussed in multidisciplinary with cardi ology and neurology and it was discussed since the patient had history of falls and significant anemi a, it was not advisable to put the patient on any strong blood thinners than aspirin. The patient wa s kept on aspirin and statin. The patient was also found to have MRSA and was started on doxycycline per ID. Repeat blood cultures were done here, they were negative. Multiple conversations were made with the family, the daughter Apu and the son and grandson over the phone at the bedside. The patie nt was thought to have elevated troponins, likely type 2 demand infarct and the family wanted the pat ient to be treated conservatively in that prospect. The patient's condition was better, was seen by physical therapy and it was recommended of patient to be discharged to a correction. The patient w as cleared by neurology, cardiology, ID and is stable to be discharged to SNF. The patient got a PIC C line placed for continuation of IV Rocephin for a total of 5 more weeks, total of 6 weeks, complete d 1 week of therapy here. FINAL DISCHARGE DIAGNOSES: 1. Positive troponin at outside hospital significant for ongoing acute coronary syndrome; however, m inimally elevated troponin here, downtrending, likely secondary to type 2 demand infarct. 2. Sepsis due to urinary tract infection, strep bacteremia from outside hospital, sensitive to penic illin and the patient also has endocarditis, mitral valve. 3. Aortic stenosis. 4. Metabolic encephalopathy versus dementia; however, MRI also had multiple embolic infarcts. 5. Cachexia. 6. Iron deficiency anemia. 7. Diabetes. 8. Hypothyroidism. 9. malnourishment. 10. History of fall at home. 11. History of right hip surgery. 12. Hypomagnesemia. 13. History of falls with scalp swelling. DISCHARGE CONDITION: Stable. DISCHARGE DIET: Two-gram sodium diabetic diet. DISCHARGE MEDICATIONS: 1. Rocephin 1 gram q.24 hours for 5 more weeks. 2. Doxycycline 100 mg p.o. b.i.d. from 01/21/2019 until 02/11/2019. 3. Megace 400 b.i.d. if needed for appetite stimulant. 4. Mupirocin b.i.d. 5. Metoprolol 50 b.i.d. 6. Levothyroxine 75 oral daily. 7. Aspirin 81. 8. Amlodipine 10. 9. Losartan 50. 10. Pantoprazole 40. DISCHARGE FOLLOWUP: The patient will be followed with PCP 1 to 2 weeks, cardiology in 1 to 2 weeks, ID 2 to 3 weeks, and the patient will need repeat echo in 2 to 4 weeks to see the resolution. The melo manning is being transferred to [facility]. Dictated By: ALBERTO HILLS/[place] Conf#: [id number] DID#: [id number] CC: SATHYA MOSES MD;*EndCC*
--- NOTE | 2019-02-06 16:16 | CONS ---
Assessment/Plan Assessment/Plan Assessment/Plan (Recall) 88 F c/ multiple comorbidities, who presents for evaluation of respiratory Sx.. She is additionally noted to have fallen... Head CT was notable for a R parieto-occipital hypodensity, suspicious for evolving infarction...for which neurology is consulted.. MRI brain confirmed an acute R parieto-occipital infarction, as well as multiple embolic appearing acute infarcts.. MRA showed a small sca aneurysm...as b/l [employer] stenosis. TTE was concerning for a possible mitral valve vegetation...the likely u nderlying cause. A1C 6.9, LDL 88 P: Agree w/ asa/lipitor daily for secondary stroke prevention for now Medical management per primary PT/OT/ST as necessary Will follow clinically Consultation Date/Type/Reason Admit Date/Time Jan 27, 2019 at 06:14 Type of Consult Neurology Reason for Consultation abnl head CT Requesting Provider: ALBERTO SILVER MD Date/Time of Note DATE: 02/06/19 TIME: 16:16 24 HR Interval Summary Free Text/Dictation Continues acute care Exam/Review of Systems Exam Vitals Vital Signs Date Temp Pulse Resp B/P (MAP) Pulse Ox O2 O2 Flow FiO2 Time Delivery Rate 02/06/19 97.8 81 17 165/68 98 11:37 (100) 02/02/19 Room Air 16:07 Intake and Output 02/05/19 02/05/19 02/06/19 1515:00 23:00 07:00 IntakeIntake Total 380 ml 150 ml BalanceBalance 380 ml 150 ml Results Result Diagram: 02/06/19 0520 02/05/19 0543 Results 24hrs Laboratory Tests Test 02/05/19 18:22 02/05/19 21:11 02/06/19 05:20 02/06/19 07:46 Bedside Glucose 190 183 158 White Blood Count 10.8 Red Blood Count 3.60 L Hemoglobin 9.3 L Hematocrit 29.6 L Mean Corpuscular 82.2 Volume Mean Corpuscular 25.8 L Hemoglobin Mean Corpuscular 31.4 L Hemoglobin Concent Red Cell 20.1 H Distribution Width Platelet Count 466 H Mean Platelet Volume 10.1 Immature 1.000 H Granulocytes % Neutrophils % 74.1 Lymphocytes % 18.1 Monocytes % 5.4 Eosinophils % 0.8 Basophils % 0.6 Nucleated Red Blood 0.0 Cells % Immature 0.110 H Granulocytes # Neutrophils # 8.0 H Lymphocytes # 2.0 Monocytes # 0.6 Eosinophils # 0.1 Basophils # 0.1 Nucleated Red Blood 0.0 Cells # Test 02/06/19 11:28 Bedside Glucose 136 ANAT LUU Feb 06, 2019 16:16
== END 2019-02-06 14:45 | DRG 871 ==
LOC: 2NE 06:14 → 6WM 21:32
PROVIDERS: ADMIT Internal Medicine Nephrology; ATTEND Internal Medicine Nephrology
PROC: 02HV33Z Insertion of Infusion Device into Superior Vena Cava, Percutaneous Approach (ICD-10-PCS; principal; 2019-02-05)
DX: A41.9 Sepsis, unspecified organism (principal); I21.A1 Myocardial infarction type 2; E43 Unspecified severe protein-calorie malnutrition; G93.41 Metabolic encephalopathy; I63.442 Cerebral infarction due to embolism of left cerebellar artery; Z68.1 Body mass index [BMI] 19.9 or less, adult; R64 Cachexia; N39.0 Urinary tract infection, site not specified; F03.90 Unspecified dementia, unspecified severity, without behavioral disturbance, psychotic disturbance, mood disturbance, and anxiety; I10 Essential (primary) hypertension; D50.9 Iron deficiency anemia, unspecified; E11.9 Type 2 diabetes mellitus without complications; E03.9 Hypothyroidism, unspecified; Z66 Do not resuscitate; E83.42 Hypomagnesemia; Z22.322 Carrier or suspected carrier of Methicillin resistant Staphylococcus aureus; E87.6 Hypokalemia; R62.7 Adult failure to thrive; Z87.11 Personal history of peptic ulcer disease; I08.0 Rheumatic disorders of both mitral and aortic valves; Z91.81 History of falling; Z96.641 Presence of right artificial hip joint
CPT/HCPCS: 36569; 70450; 70544; 70548; 70551; 71045; 72170; 76937; 80048; 80053; 80061; 81001; 82962; 83036; 83540; 83605; 83735; 84100; 84443; 84484; 85025; 87081; 87086; 93005; 93306; 97110; 97162; 97530; A4310; J0692; J0696; J1815; J2916; J3370; J3475; J3480

== ENCOUNTER 2019-02-24 13:19 | Emergency (ER) | payer OTHER ==
[~2019-02-24] VITALS: Ht 160 cm; Wt 60.0 kg
[2019-02-24 13:23] VITALS: Ht 160 cm; Wt 60.0 kg
[2019-02-24] MEDS ORDERED: SOD CHLORIDE 0.9% 500 ML IV ONE (13:30)
[2019-02-24] MEDS ORDERED: LIDOCAINE 1% (MPF) 5 ML VIAL SC ONE (14:30)
--- NOTE | 2019-02-24 18:22 | ERD ---
ER Documentation Chief Complaint Chief Complaint weakness since this morning also wanting PICC line HPI 88-year-old female transferred to the emergency department by paramedics from her care facility for "weakness." Patient is nonverbal and provides no significant insight. According the transfer paperwork there is no further insight other than the "weakness." There is also a verbal report that the patient pulled out a PICC line approximate 4 days ago and the facility is asked us to replace the PICC line. Further history according to the family is that the patient has been essentially in her usual state of health with an ongoing generalized weakness related to her chronic medical conditions and they are requesting replacement of the PICC line. ROS All systems reviewed and are negative except as per history of present illness. Medications Home Meds Active Scripts Amoxicillin-Clavulanate K* (Augmentin*) 875 Mg Tab, 875 MG PO BID for 10 Days, TAB Prov:SATHYA MOSES MD 07/12/15 Nystatin* (Nystop* Powder) 1 Applic Powder, 1 APPLIC TOP BID for 28 Days, BOTTLE Prov:SATHYA MOSES MD 07/12/15 Losartan Potassium* (Cozaar*) 50 Mg Tab, 50 MG PO Q12 for 10 Days, TAB Prov:SATHYA MOSES MD 07/12/15 Levothyroxine Sodium* (Synthroid*) 75 Mcg Tab, 75 MCG PO DAILY@06 for 28 Days, TAB Prov:SATHYA MOSES MD 07/12/15 Amlodipine Besylate* (Norvasc*) 10 Mg Tab, 10 MG PO DAILY for 28 Days, TAB Prov:SATHYA MOSES MD 07/12/15 Allergies Allergies: Coded Allergies: No Known Allergy (Unverified , 07/07/15) PMhx/Soc History of Surgery: Yes (hip replacement, hysterectomy) Anesthesia Reaction: No Hx Neurological Disorder: No Hx Respiratory Disorders: No Hx Cardiac Disorders: No Hx Psychiatric Problems: No Hx Miscellaneous Medical Probl: Yes (See note) Hx Alcohol Use: No Hx Substance Use: No Hx Tobacco Use: No Smoking Status: Never smoker FmHx Noncontributory with supportive family at the bedside Physical Exam Vitals Vital Signs Date Temp Pulse Resp B/P (MAP) Pulse Ox O2 O2 Flow FiO2 Time Delivery Rate 02/24/19 87 123/76 17:53 (92) 02/24/19 Nasal 13:42 Cannula 02/24/19 98.5 88 20 142/64 98 13:23 (90) Physical Exam GENERAL: Frail, elderly female in no acute distress HEENT: Pupils equal, round, and reactive to light. EOMI. There is no scleral icterus. NECK: C-spine is soft and supple, there is no meningismus. There is no cervical lymphadenopathy. LUNGS: Clear to auscultation bilaterally. There are no rales, wheezes or rhonchi. HEART: Regular rate and rhythm, no murmurs, clicks, rubs or gallops. ABDOMEN: Soft, non-tender, non-distended. There are bowel sounds in all four quadrants. No rebound or guarding. EXTREMITIES: There is no peripheral cyanosis or edema. No focal swelling or erythema. NEURO: The patient moves all four extremities with 5/5 strength. Cranial nerves II - XII are intact. No significant insight into her presentation SKIN: There is no apparent rash or petechiae. HEME/LYMPHATIC: There is no evidence of excessive bruising or lymphedema. PSYCHIATRIC: The patient does not appear anxious or depressed. Result Diagram: 02/24/19 1334 02/24/19 1334 Results 24 hrs Laboratory Tests Test 02/24/19 13:34 02/24/19 13:41 02/24/19 15:18 White Blood Count 9.4 10^3/ul Red Blood Count 3.29 10^6/ul Hemoglobin 8.7 g/dl Hematocrit 28.6 % Mean Corpuscular Volume 86.9 fl Mean Corpuscular Hemoglobin 26.4 pg Mean Corpuscular 30.4 g/dl Hemoglobin Concent Red Cell Distribution Width 24.3 % Platelet Count 511 10^3/UL Mean Platelet Volume 9.4 fl Immature Granulocytes % 0.600 % Neutrophils % 75.5 % Lymphocytes % 13.3 % Monocytes % 8.1 % Eosinophils % 2.0 % Basophils % 0.5 % Nucleated Red Blood Cells % 0.0 /100WBC Immature Granulocytes # 0.060 10^3/ul Neutrophils # 7.1 10^3/ul Lymphocytes # 1.3 10^3/ul Monocytes # 0.8 10^3/ul Eosinophils # 0.2 10^3/ul Basophils # 0.1 10^3/ul Nucleated Red Blood Cells # 0.0 10^3/ul Prothrombin Time 16.4 Sec Prothrombin Time Ratio 1.3 INR International 1.31 Normalized Ratio Activated Partial Thromboplast 38.7 Sec Time Sodium Level 139 mmol/L Potassium Level 4.6 mmol/L Chloride Level 110 mmol/L Carbon Dioxide Level 21 mmol/L Anion Gap 8 Blood Urea Nitrogen 25 mg/dl Creatinine 1.08 mg/dl Est Glomerular Filtrat mL/min Rate mL/min Glucose Level 108 mg/dl Calcium Level 9.8 mg/dl Total Bilirubin 0.3 mg/dl Direct Bilirubin 0.00 mg/dl Indirect Bilirubin 0.3 mg/dl Aspartate Amino 25 IU/L Transf (AST/SGOT) Alanine 48 IU/L Aminotransferase (ALT/SGPT) Alkaline Phosphatase 127 IU/L Troponin I < 0.012 ng/ml Total Protein 7.8 g/dl Albumin 3.5 g/dl Globulin 4.30 g/dl Albumin/Globulin Ratio 0.81 POC Venous Lactate 1.0 mmol/L Urine Color YELLOW Urine Clarity CLEAR Urine pH 6.0 Urine Specific [place] 1.009 Urine Ketones NEGATIVE mg/dL Urine Nitrite NEGATIVE mg/dL Urine Bilirubin NEGATIVE mg/dL Urine Urobilinogen NEGATIVE mg/dL Urine Leukocyte Esterase NEGATIVE [place]/ul Urine Hemoglobin NEGATIVE mg/dL Urine Glucose NEGATIVE mg/dL Urine Total Protein NEGATIVE mg/dl Current Medications Medications Dose Sig/Jessica Start Time Status Last (Trade) Ordered Route PRN Stop Time Admin Dose Reason Admin Sodium 500 ml @ Q1H ONCE 02/24/19 DC 02/24/19 Chloride 500 mls/hr IV 13:30 14:02 02/24/19 14:29 Lidocaine 5 ml ONCE ONCE 02/24/19 DC 02/24/19 (Xylocaine SC 14:30 14:30 1% (Mpf)) 02/24/19 14:31 Procedures/MDM Patient was taken to a room, seen and evaluated. Comfort measures were i nitiated. Diagnostic tests were ordered and reviewed. 3 LEAD RHYTHM STRIP: Normal sinus rhythm without ectopy EK lead EKG reviewed by myself: Normal Sinus Rhythm Normal [place] and intervals No ST elevation, depression, or T wave inversion, nonspecific ST and T waves Impression: Nonspecific EKG without obvious ischemia RADIOLOGY: Reviewed with the radiologist REEVALUATION: After initial diagnostic tests demonstrated no indications of significant decompensated medical disease, attention was then placed to placement of the PICC line. After significant delay, we discussed placement of a midline with the family and a midline was placed by the nursing staff. MEDICAL DECISION MAKIN-year-old female, who is DNR, with comfort care measures, presents the emergency room for generalized weakness. Her initial diagnostic evaluation evaluated her for the possibility of sepsis, electrolyte concerns and other issues. This evaluation demonstrated no significant findings of a significant acute decompensated medical illness. Patient's midline has been replaced, which should be appropriate for the medications that she was receiving at the facility. She otherwise appears to be clinically stable and appropriate for discharge. Departure Diagnosis: Primary Impression: Acute weakness Condition: Stable Patient Instructions: Weakness, Unk Cause Additional Instructions: Continue all usual orders TOM RAMIREZ Feb 24, 2019 18:22
[2019-02-24 21:20] VITALS: BP 135/61; PULSE 97; RESP 21
== END 2019-02-24 21:20 | disposition home or self-care (01) ==
LOC: E/R 13:19
DX: R53.1 Weakness (principal); R40.2142 Coma scale, eyes open, spontaneous, at arrival to emergency department; R40.2342 Coma scale, best motor response, flexion withdrawal, at arrival to emergency department; R40.2242 Coma scale, best verbal response, confused conversation, at arrival to emergency department
CPT/HCPCS: 36415; 71045; 80053; 81003; 83605; 84484; 85025; 85610; 85730; 87040; 87086; 99285; J7040; 93005